=== PATIENT | male | born 1930 | race Two or more races ===

== ENCOUNTER 2017-01-18 08:54 | Emergency (ER) | payer MEDICARE, OTHER ==
[2017-01-18] VITALS (7 sets, daily range): BP systolic 105–117; BP diastolic 47–71
[~2017-01-18] VITALS: Ht 162.6 cm; Wt 69.4 kg
[~2017-01-18 08:54] MED LIST: ATORVASTATIN CA10 MG ORAL; CEPHALEXIN500 MG PO; DONEPEZIL HCL5 M2 ORAL; FLUTICASONE PRO16 G1 NASAL; FUROSEMIDE20 M1 ORAL; KLOR-CON 1010 MEQ ORAL; LEVOFLOXACIN250 MG ORAL; LORATADINE10 M1 ORAL; LOSARTAN POTAS100 MG ORAL; NITROSTAT0.4 M1 SL; OMEPRAZOLE20 M3 ORAL; PRADAXA150 MG ORAL; RAPAFLO8 MG ORAL; TRAMADOL HCL50 MG ORAL; ULORIC40 MG ORAL; UNOBMED; ZETIA10 MG ORAL
[2017-01-18] MEDS ORDERED: CARVEDILOL12.5 MG ORAL (09:09)
[2017-01-18] MEDS ORDERED: LEXAPRO10 MG ORAL (09:09)
[2017-01-18] MEDS ORDERED: VENTOLIN HFA18 GM INH (09:09)
[2017-01-18] MEDS ORDERED: MECLIZINE HCL25 MG ORAL (09:11)
[2017-01-18] MEDS ORDERED: FUROSEMIDE20 M1 ORAL (09:11)
[2017-01-18] MEDS ORDERED: PRADAXA75 MG ORAL (09:11)
[2017-01-18] MEDS ORDERED: TAMSULOSIN HCL0.4 MG ORAL (09:11)
[2017-01-18] MEDS ORDERED: Albuterol ud Inhalation HHN ONE (09:30)
[2017-01-18] MEDS ORDERED: Ipratropium 0.02% Inh Soln 2.5ml UD HHN ONE (09:30)
[2017-01-18 10:21] LABS: EOSINOPHILS % (AUTO) 2.5 % (0.0-3.0); LYMPHOCYTES % (AUTO) 12.3 % (20.0-45.0); MEAN CORPUSCULAR HEMOGLOBIN 31.7 PG (27.0-31.0); MEAN CORPUSCULAR VOLUME 99 FL (80-99); MEAN PLATELET VOLUME 6.8 FL (6.5-10.1); MONOCYTES % (AUTO) 8.3 % (1.0-10.0); NEUTROPHILS % (AUTO) 75.9 % (45.0-75.0); PLATELET COUNT 165 K/UL (150-450); RED BLOOD COUNT 3.51 M/UL (4.70-6.10); RED CELL DISTRIBUTION WIDTH 12.7 % (11.6-14.8)
[2017-01-18 10:25] LABS: APPEARANCE,URINE CLEAR; KETONES,URINE NEGATIVE (NEGATIVE); LEUKOCYTE ESTERASE ,URINE 2+ (NEGATIVE); NITRITE,URINE NEGATIVE (NEGATIVE); PH,URINE 5 (4.5-8.0); PROTEIN,URINE 1+ (NEGATIVE); UROBILINOGEN,URINE NORMAL MG/DL (0.0-1.0)
[2017-01-18 10:42] LABS: ALANINE AMINOTRANSFERASE 14 U/L (3-41); ALBUMIN/GLOBULIN RATIO 0.9 (1.0-2.7); ANION GAP 16 (5-15); ASPARTATE AMINO TRANSFERASE 18 U/L (5-40); CALCIUM 8.7 mg/dL (8.6-10.2); CARBON DIOXIDE 22 mEQ/L (20-30); CHLORIDE 98 mEQ/L (98-107); CREATININE 2.1 mg/dL (0.7-1.2); HEMOLYSIS 14; POTASSIUM 4.3 mEQ/L (3.4-4.9); SODIUM 136 mEQ/L (135-145); TOTAL PROTEIN 7.2 g/dL (6.6-8.7)
[2017-01-18 10:46] LABS: INR 1.7 (0.9-1.1); PROTHROMBIN TIME 17.4 SEC (9.30-11.50)
[2017-01-18 10:53] LABS: BACTERIA,URINE FEW /HPF; SQUAMOUS EPITHELIAL CELL,UR MODERATE /LPF (NONE/OCC)
[2017-01-18 11:02] LABS: TROPONIN I < 0.30 ng/mL (<=0.30)
[2017-01-18 11:14] LABS: CKMB < 1.5 ng/mL (< 6.7)
[2017-01-18] MEDS ORDERED: cefTRIAXone 1 GM in NS 55 ML IV ONE (11:30)
[2017-01-18] MEDS ORDERED: Erythromycin Opth Ointment 3.5gm BOTH EYES ONE (11:30)
[2017-01-18] MEDS ORDERED: Azithromycin 500 MG in NS 275 ML IV ONE (11:30)
[2017-01-18] MEDS ORDERED: Azithromycin Inj IV ONE (12:11)
--- NOTE | 2017-01-18 13:01 | Emergency Room Report ---
History of Present Illness General Chief Complaint: Allergic Reaction Source: Family Member, Medical Record Present Illness HPI 86-year-old male brought to ED for evaluation. Daughter at bedside states that patient has been having cough and cold symptoms since yesterday. Congestion. Short of breath. Also complaining of chest pain with cough. Cough is productive with greenish sputum. Pain is sharp. 7/10. Midsternal. Worse with coughing. Nonradiating. Patient also complaining of redness and itchiness to both eyes. Notes watery discharge. Denies photophobia or blurry vision. Denies fevers or chills. No aggravating relieving factors. Denies any other associated symptom Allergies: Coded Allergies: No Known Allergies (Unverified , 09/27/15) Patient History Past Medical History: HTN, CVA/TIA Past Surgical History: pacemaker Pertinent Family History: none Social History: Denies: alcohol use, drug use, smoking Immunizations: UTD Reviewed Nursing Documentation: PMH: Agreed, PSxH: Agreed Nursing Documentation-PMH Hx Cardiac Problems: Yes Hx Hypertension: Yes Hx Pacemaker: Yes Hx Asthma: No Hx COPD: No Hx Diabetes: No Hx Cancer: No Hx Gastrointestinal Problems: No Hx Dialysis: No Hx Neurological Problems: No Hx Cerebrovascular Accident: Yes - AUG 2012 Hx Seizures: No Review of Systems All Other Systems: negative except mentioned in HPI Physical Exam Vital Signs Date Time Temp Pulse Resp B/P Pulse Ox O2 Delivery O2 Flow Rate FiO2 01/18/17 09:00 98.1 64 16 105/68 96 Room Air 01/18/17 10:30 21 Sp02 EP Interpretation: reviewed, normal General Appearance: no apparent distress, alert, GCS 15, non-toxic Head: normocephalic, atraumatic Eyes: bilateral eye EOMI, bilateral eye PERRL, bilateral eye Scleral Injection , bilateral eye normal inspection, bilateral eye visual acuity ENT: hearing grossly normal, normal pharynx, no angioedema, normal voice Neck: full range of motion, supple/symm/no masses Respiratory: crackles, speaking full sentences Cardiovascular #1: regular rate, rhythm, no edema Cardiovascular #2: 2+ carotid (R), 2+ carotid (L), 2+ radial (R), 2+ radial (L) , 2+ dorsalis pedis (R), 2+ dorsalis pedis (L) Gastrointestinal: normal bowel sounds, non tender, soft, non-distended, no guarding, no rebound Rectal: deferred Genitourinary: normal inspection, no CVA tenderness Musculoskeletal: back normal, gait/station normal, normal range of motion, non- tender Neurologic: alert, oriented x3, responsive, motor strength/tone normal, sensory intact, speech normal Psychiatric: judgement/insight normal, memory normal, mood/affect normal, no suicidal/homicidal ideation Reflexes: 3+ bicep (R), 3+ bicep (L), 3+ tricep (R), 3+ tricep (L), 3+ knee (R) , 3+ knee (L) Skin: normal color, no rash, warm/dry, well hydrated Lymphatic: no adenopathy Medical Decision Making Diagnostic Impression: Primary Impression: Pneumonia Qualified Codes: J18.9 - Pneumonia, unspecified organism Additional Impressions: ARF (acute renal failure) Qualified Codes: N17.9 - Acute kidney failure, unspecified CHF exacerbation Qualified Codes: I50.9 - Heart failure, unspecified ER Course Hospital Course 86-year-old M presenting to ED with respiratory distress, cough and crackles Differential diagnoses include: Pneumonia, CHF exacerbation, pneumothorax, fluid overload Clinical course Patient placed on stretcher. On surveillance monitor. After initial history and physical, I ordered nebulizer treatments. I ordered labs, IV fluids, EKG, chest x-ray, blood cultures, UA. Labs -no leukocytosis, hemoglobin/hematocrit stable, BUN/Cr 50/2.1, lactate okay , troponins negative, BNP elevated CXR - R lower lobe infiltrate EKG - paced rhythm, no acute ischemic changes abx given. Because of insurance patient will be transferred I feel this is a highly complex case requiring extensive working including EKG/ Rhythm strip, Xray/CT/US, Blood/urine lab work, repeat exams while in ED, and administration of strong opiates/narcotics for pain control, admission to hospital or close patient follow up. Diagnosis - pneumonia, ARF, CHF exacerbation Transferred in serious condition Labs Test 01/18/17 09:55 White Blood Count 7.0 K/UL (4.8-10.8) Red Blood Count 3.51 M/UL (4.70-6.10) Hemoglobin 11.1 G/DL (14.2-18.0) Hematocrit 34.7 % (42.0-52.0) Mean Corpuscular Volume 99 FL (80-99) Mean Corpuscular Hemoglobin 31.7 PG (27.0-31.0) Mean Corpuscular Hemoglobin Concent 32.0 G/DL (32.0-36.0) Red Cell Distribution Width 12.7 % (11.6-14.8) Platelet Count 165 K/UL (150-450) Mean Platelet Volume 6.8 FL (6.5-10.1) Neutrophils (%) (Auto) 75.9 % (45.0-75.0) Lymphocytes (%) (Auto) 12.3 % (20.0-45.0) Monocytes (%) (Auto) 8.3 % (1.0-10.0) Eosinophils (%) (Auto) 2.5 % (0.0-3.0) Basophils (%) (Auto) 1.0 % (0.0-2.0) Prothrombin Time 17.4 SEC (9.30-11.50) Prothromb Time International Ratio 1.7 (0.9-1.1) Activated Partial Thromboplast Time 51 SEC (23-33) Urine Color Yellow Urine Appearance Clear Urine pH 5 (4.5-8.0) Urine Specific [place] 1.015 (1.005-1.035) Urine Protein 1+ (NEGATIVE) Urine Glucose (UA) Negative (NEGATIVE) Urine Ketones Negative (NEGATIVE) Urine Occult Blood 2+ (NEGATIVE) Urine Nitrite Negative (NEGATIVE) Urine Bilirubin Negative (NEGATIVE) Urine Urobilinogen Normal MG/DL (0.0-1.0) Urine Leukocyte Esterase 2+ (NEGATIVE) Urine RBC 2-4 /HPF (0 - 0) Urine WBC 5-10 /HPF (0 - 0) Urine Squamous Epithelial Cells Moderate /LPF (NONE/OCC) Urine Bacteria Few /HPF (NONE) Sodium Level 136 mEQ/L (135-145) Potassium Level 4.3 mEQ/L (3.4-4.9) Chloride Level 98 mEQ/L (98-107) Carbon Dioxide Level 22 mEQ/L (20-30) Anion Gap 16 (5-15) Blood Urea Nitrogen 50 mg/dL (7-23) Creatinine 2.1 mg/dL (0.7-1.2) Estimat Glomerular Filtration Rate mL/min (>60) Glucose Level 166 mg/dL (74-106) Lactic Acid Level 1.40 mmol/L (0.66-2.22) Calcium Level 8.7 mg/dL (8.6-10.2) Total Bilirubin 0.6 mg/dL (0.0-1.2) Aspartate Amino Transf (AST/SGOT) 18 U/L (5-40) Alanine Aminotransferase (ALT/SGPT) 14 U/L (3-41) Alkaline Phosphatase 99 U/L (40-129) Total Creatine Kinase 55 U/L (38-174) Creatine Kinase MB < 1.5 ng/mL (< 6.7) Creatine Kinase MB Relative Index Troponin I < 0.30 ng/mL (<=0.30) Pro-B-Type Natriuretic Peptide 88505 pg/mL (0-450) Total Protein 7.2 g/dL (6.6-8.7) Albumin 3.5 g/dL (3.5-5.2) Globulin 3.7 g/dL Albumin/Globulin Ratio 0.9 (1.0-2.7) EKG Diagnostic Results Rate: normal Rhythm: other - paced ST Segments: no acute changes ASA given to the pt in ED: No Rhythm Strip Diag. Results EP Interpretation: yes Rhythm: no PVC's, no ectopy Chest X-Ray Diagnostic Results EP Interpretation: No Findings: no pneumothorax, no acute cardiopulmonary disease, other - RLL infiltrate. pacemaker Number of Views: 1 Last Vital Signs Date Time Temp Pulse Resp B/P Pulse Ox O2 Delivery O2 Flow Rate FiO2 01/18/17 10:41 68 20 100 Room Air 21 01/18/17 09:15 98.1 105/68 Status: improved Disposition: XFER SHT-TRM HOSP Condition: Serious Referrals: NOT CHOSEN FRANNIE/,REFERRING (PCP) LINO ZEPEDA M.D. Jan 18, 2017 13:01
--- NOTE | 2017-01-18 14:38 | Diagnostic Imaging Report ---
Indication: Dyspnea Comparison: 11/03/15 A single view chest radiograph was obtained. Findings: Some prominence of pulmonary vascularity noted but there is no definite CHF. Heart is also enlarged. Pacemaker and generalized osteopenia are noted. There is a question of developing infiltrate versus atelectasis at the right lung base. Impression: Question of developing infiltrate in the right lung. Followup recommended.
[2017-01-18] MEDS ORDERED: AMOXICILLIN500 MG ORAL (14:41)
== END 2017-01-18 19:22 | disposition short-term general hospital (02) ==
LOC: EMR 09:22
DX: J18.9 Pneumonia, unspecified organism (principal); N17.9 Acute kidney failure, unspecified; I50.9 Heart failure, unspecified; I10 Essential (primary) hypertension; Z95.0 Presence of cardiac pacemaker; Z86.73 Personal history of transient ischemic attack (TIA), and cerebral infarction without residual deficits
CPT/HCPCS: 36415; 71010; 80053; 81003; 82550; 82553; 83605; 83880; 84484; 85025; 85610; 85730; 87040; 93005; 94640; 94664; 96374; 96375; 99285; J0456; J0696; J7040; J7050

== ENCOUNTER 2018-01-25 13:56 | Inpatient (IN) | payer MEDICARE, OTHER ==
[~2018-01-25] VITALS: Ht 165.1 cm; Wt 54.4 kg
[~2018-01-25 13:56] MED LIST changes: +AMOXICILLIN500 MG ORAL; +CARVEDILOL12.5 MG ORAL; +LEXAPRO10 MG ORAL; +MECLIZINE HCL25 MG ORAL; +PRADAXA75 MG ORAL; +TAMSULOSIN HCL0.4 MG ORAL; +VENTOLIN HFA18 GM INH
[2018-01-25] MEDS ORDERED: FUROSEMIDE20 M1 ORAL (13:59)
[2018-01-25] MEDS ORDERED: MECLIZINE HCL12.5 MG ORAL (13:59)
[2018-01-25 14:05] VITALS: BP 138/61
--- NOTE | 2018-01-25 14:27 | Emergency Room Report ---
History of Present Illness General Chief Complaint: Generalized Weakness Source: Patient, EMS Present Illness HPI Patient presents after syncopal episode. When paramedics arrived he was sitting. He was pale at that time. Vital signs apparently were stable. The patient's post pacemaker placement. The patient complains of headache and dysuria. He denies chest pain, palpitations, cough, shortness of breath, nausea , vomiting, diarrhea. He denies any head trauma or joint pain. Headache rated at 4/10, constant, occipital, not radiating. He is hard of hearing chronically. Has poor vision which is unchanged - post cataract surgery. He had a stroke in 2011, but has no residual weakness. Allegedly had "heart attack" in past. 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 H/O HTN. On Flomax. Allergies: Coded Allergies: No Known Allergies (Unverified , 09/27/15) Patient History Past Medical History: see triage record Past Surgical History: pacemaker, other - cataract surgery Social History: Denies: smoking, alcohol use Social History Narrative from home - - [facility] Reviewed Nursing Documentation: PMH: Agreed; PSxH: Agreed Nursing Documentation-PMH Past Medical History: No History, Except For Hx Cardiac Problems: Yes Hx Hypertension: Yes Hx Pacemaker: Yes Hx Asthma: No Hx COPD: No Hx Diabetes: No Hx Cancer: No Hx Gastrointestinal Problems: No Hx Dialysis: No Hx Neurological Problems: No Hx Cerebrovascular Accident: Yes - AUG 2012 Hx Seizures: No Review of Systems All Other Systems: negative except mentioned in HPI Physical Exam Vital Signs Date Time Temp Pulse Resp B/P (MAP) Pulse Ox O2 Delivery O2 Flow Rate FiO2 01/25/18 13:56 97.1 64 20 122/66 98 Room Air 97.2 Sp02 EP Interpretation: reviewed, normal General Appearance: well appearing, no apparent distress, GCS 15 Head: normocephalic, atraumatic Eyes: bilateral eye normal inspection, bilateral eye PERRL, bilateral eye EOMI , bilateral eye other - Pterygium ENT: moist mucus membranes Neck: supple Respiratory: lungs clear, normal breath sounds Cardiovascular #1: regular rate, rhythm Cardiovascular #2: 2+ radial (R) Gastrointestinal: normal inspection, normal bowel sounds, non tender, no mass, non-distended Rectal: heme negative stool Musculoskeletal: back normal, normal range of motion, no calf tenderness Neurologic: alert, motor strength/tone normal, DTRs symmetric, sensory intact, speech normal, oriented - X2 Psychiatric: mood/affect normal Skin: warm/dry, pallor Medical Decision Making Diagnostic Impression: Primary Impression: Syncope Qualified Codes: R55 - Syncope and collapse Additional Impressions: Renal insufficiency UTI (urinary tract infection) Qualified Codes: N30.00 - Acute cystitis without hematuria ER Course Patient presents post syncopal episode. Vital signs are stable for paramedics. Differential includes acute myocardial infarction, arrhythmia, dehydration, GI bleed, electrolyte abnormality amongst others. Evaluation will be with EKG, chest x-ray, CT of the head and labs including urinalysis and lactate. He'll be treated with IV hydration at the moment. EKG no acute injury. Chest x-ray reveals pacemaker on the left-hand side. CT shows a large old right frontoparietal infarct without bleed or mass effect. Labs significant for negative troponin, renal insufficiency, UTI, mild anemia Rocephin given. Patient needs continued evaluation and cardiac monitoring for syncope as well as work up for renal failure. Continued treatment of UTI. Admit telemetry Dr. Freitas (for Dr. Reyna). Laboratory Tests Test 01/25/18 14:23 01/25/18 15:14 01/25/18 15:19 White Blood Count 6.8 K/UL (4.8-10.8) Red Blood Count 3.45 M/UL (4.70-6.10) L Hemoglobin 10.8 G/DL (14.2-18.0) L Hematocrit 34.2 % (42.0-52.0) L Mean Corpuscular Volume 99 FL (80-99) Mean Corpuscular Hemoglobin 31.2 PG (27.0-31.0) H Mean Corpuscular Hemoglobin Concent 31.5 G/DL (32.0-36.0) L Red Cell Distribution Width 14.3 % (11.6-14.8) Platelet Count 175 K/UL (150-450) Mean Platelet Volume 6.1 FL (6.5-10.1) L Neutrophils (%) (Auto) 75.8 % (45.0-75.0) H Lymphocytes (%) (Auto) 14.1 % (20.0-45.0) L Monocytes (%) (Auto) 6.7 % (1.0-10.0) Eosinophils (%) (Auto) 2.6 % (0.0-3.0) Basophils (%) (Auto) 0.9 % (0.0-2.0) Sodium Level 138 MMOL/L (136-145) Potassium Level 5.1 MMOL/L (3.5-5.1) Chloride Level 105 MMOL/L (98-107) Carbon Dioxide Level 27 MMOL/L (21-32) Anion Gap 6 mmol/L (5-15) Blood Urea Nitrogen 47 mg/dL (7-18) H Creatinine 1.9 MG/DL (0.55-1.30) H Estimate Glomerular Filtration Rate mL/min (>60) Glucose Level 84 MG/DL (74-106) Lactic Acid Level 1.00 mmol/L (0.66-2.22) Calcium Level 8.2 MG/DL (8.5-10.1) L Total Bilirubin 0.5 MG/DL (0.2-1.0) Aspartate Amino Transferase (AST) 38 U/L (15-37) H Alanine Aminotransferase (ALT) 30 U/L (12-78) Alkaline Phosphatase 114 U/L (46-116) Total Creatine Kinase 62 U/L (26-308) Creatine Kinase MB 0.5 NG/ML (0.0-3.6) Creatine Kinase MB Relative Index 0.8 Troponin I 0.019 ng/mL (0.000-0.056) Pro-B-Type Natriuretic Peptide 41884 pg/mL (0-125) H Total Protein 7.3 G/DL (6.4-8.2) Albumin 3.3 G/DL (3.4-5.0) L Globulin 4.0 g/dL Albumin/Globulin Ratio 0.8 (1.0-2.7) L Prothrombin Time 15.0 SEC (9.30-11.50) H Prothrombin Time INR 1.4 (0.9-1.1) H PTT 43 SEC (23-33) H Urine Color Pale yellow Urine Appearance Slightly cloudy Urine pH 5 (4.5-8.0) Urine Specific [place] 1.010 (1.005-1.035) Urine Protein Negative (NEGATIVE) Urine Glucose (UA) Negative (NEGATIVE) Urine Ketones Negative (NEGATIVE) Urine Occult Blood 3+ (NEGATIVE) H Urine Nitrite Positive (NEGATIVE) H Urine Bilirubin Negative (NEGATIVE) Urine Urobilinogen Normal MG/DL (0.0-1.0) Urine Leukocyte Esterase 2+ (NEGATIVE) H Urine RBC 0-2 /HPF (0 - 0) H Urine WBC 10-15 /HPF (0 - 0) H Urine Squamous Epithelial Cells Few /LPF (NONE/OCC) Urine Bacteria Many /HPF (NONE) H EKG Diagnostic Results Rate: normal Rhythm: other - paced and sinus ST Segments: other - ST elevation less than STEMI Rhythm Strip Diag. Results EP Interpretation: yes Rhythm: no PVC's, no ectopy, other - pacer spiked Chest X-Ray Diagnostic Results Chest X-Ray Diagnostic Results : Chest X-Ray Ordered: Yes # of Views/Limited/Complete: 1 View Indication: Other EP Interpretation: Yes Interpretation: no consolidation, no effusion, no pneumothorax, other - pacer L Impression: Other Electronically Signed by: Electronically signed by Yon Hernandez MD CT/MRI/US Diagnostic Results CT/MRI/US Diagnostic Results : Imaging Test Ordered: head Impression old R frontoparietal infarct, no bleed Last Vital Signs Date Time Temp Pulse Resp B/P (MAP) Pulse Ox O2 Delivery O2 Flow Rate FiO2 01/26/18 00:00 117/60 01/26/18 00:00 60 01/26/18 00:00 97.5 20 99 Room Air 97.5 Status: improved Disposition: ADMITTED INPATIENT Condition: Serious Yon Hernandez M.D. Jan 25, 2018 14:27
[2018-01-25 14:43] LABS: BASOPHILS % (AUTO) 0.9 % (0.0-2.0); EOSINOPHILS % (AUTO) 2.6 % (0.0-3.0); HEMATOCRIT 34.2 % (42.0-52.0); HEMOGLOBIN 10.8 G/DL (14.2-18.0); LYMPHOCYTES % (AUTO) 14.1 % (20.0-45.0); MEAN CORPUSCULAR VOLUME 99 FL (80-99); MONOCYTES % (AUTO) 6.7 % (1.0-10.0); NEUTROPHILS % (AUTO) 75.8 % (45.0-75.0); PLATELET COUNT 175 K/UL (150-450); RED BLOOD COUNT 3.45 M/UL (4.70-6.10); RED CELL DISTRIBUTION WIDTH 14.3 % (11.6-14.8); WHITE BLOOD COUNT 6.8 K/UL (4.8-10.8)
--- NOTE | 2018-01-25 14:51 | Diagnostic Imaging Report ---
Indication: Syncope Technique: XRAY Chest 1v Comparison: 01/18/2017 Findings: Stable cardiomegaly. Pacemaker unchanged in position. There is mild central pulmonary vascular congestion. There is no focal airspace consolidation. No pleural effusion or pneumothorax. No acute osseous abnormality seen. IMPRESSION: Cardiomegaly with mild central pulmonary vascular congestion. No focal airspace consolidation.
[2018-01-25 14:57] LABS: ANION GAP 6 mmol/L (5-15); BLOOD UREA NITROGEN 47 mg/dL (7-18); CALCIUM 8.2 MG/DL (8.5-10.1); CARBON DIOXIDE 27 MMOL/L (21-32); CHLORIDE 105 MMOL/L (98-107); CREATININE 1.9 MG/DL (0.55-1.30); POTASSIUM 5.1 MMOL/L (3.5-5.1); SODIUM 138 MMOL/L (136-145)
--- NOTE | 2018-01-25 15:01 | Diagnostic Imaging Report ---
Indication: Syncope Technique: Continuous helical CT scanning of the head was performed utilizing automated exposure control without intravenous contrast material. Axial and coronal reconstructions were obtained. Comparison: None CT dose: Total DLP 1413 mGycm; CTDI vol 70.5 mGy Findings: There is no acute intracranial hemorrhage, mass effect, midline shift or cortical edema. There is encephalomalacia the right frontal-parietal lobe likely representing area of chronic infarct. There are bilateral basal ganglia calcifications. The ventricles, cisterns and sulci are prominent consistent with atrophy. Periventricular hypoattenuation is seen, a nonspecific finding. Atherosclerotic vascular opacifications are noted. Mastoid air cells are clear. There is mild mucosal thickening in some ethmoid air cells. There is no depressed calvarial fracture. No focal lesion of the scalp is appreciated. IMPRESSION: No evidence of acute intracranial hemorrhage, mass effect or cortical edema. Chronic appearing infarct in the right frontal- parietal lobe. MRI may be obtained for more sensitive evaluation as clinically indicated. Atrophy and nonspecific periventricular hypoattenuation suggestive of chronic ischemic microvascular changes. The CT scanner at [facility] is accredited by the [employer] and the scans are performed using protocols designed to limit radiation exposure to as low as reasonably achievable to attain images of sufficient resolution adequate for diagnostic evaluation.
[2018-01-25 15:10] LABS: ALANINE AMINOTRANSFERASE 30 U/L (12-78); ALBUMIN 3.3 G/DL (3.4-5.0); ALBUMIN/GLOBULIN RATIO 0.8 (1.0-2.7); ALKALINE PHOSPHATASE 114 U/L (46-116); ASPARTATE AMINO TRANSFERASE 38 U/L (15-37); BILIRUBIN,TOTAL 0.5 MG/DL (0.2-1.0); CKMB 0.5 NG/ML (0.0-3.6); CREATINE KINASE 62 U/L (26-308)
[2018-01-25 15:31] LABS: APPEARANCE,URINE SLIGHTLY CLOUDY; BILIRUBIN, URINE NEGATIVE (NEGATIVE); COLOR,URINE PALE YELLOW; GLUCOSE, URINE (UA) NEGATIVE (NEGATIVE); KETONES,URINE NEGATIVE (NEGATIVE); LEUKOCYTE ESTERASE ,URINE 2+ (NEGATIVE); NITRITE,URINE POSITIVE (NEGATIVE); PH,URINE 5 (4.5-8.0); PROTEIN,URINE NEGATIVE (NEGATIVE); UROBILINOGEN,URINE NORMAL MG/DL (0.0-1.0)
[2018-01-25 15:50] LABS: INR 1.4 (0.9-1.1)
[2018-01-25 16:02] VITALS: BP 130/73
[2018-01-25] MEDS ORDERED: cefTRIAXone 1 GM in NS 55 ML IVPB ONE (16:15)
[2018-01-25 17:17] VITALS: BP 143/70
--- NOTE | 2018-01-25 18:52 | Cardiology Progress Note ---
Assessment/Plan Assessment/Plan The patient is seen and examined, full consult note is dictated. Objective Last 24 Hour Vital Signs Date Time Temp Pulse Resp B/P (MAP) Pulse Ox O2 Delivery O2 Flow Rate FiO2 01/25/18 17:17 97.8 64 18 143/70 100 Room Air 97.8 01/25/18 16:02 97.8 64 17 130/73 99 Room Air 97.8 01/25/18 14:05 97.8 64 17 138/61 99 Room Air 97.8 01/25/18 13:56 97.1 64 20 122/66 98 Room Air 97.2 Laboratory Tests Test 01/25/18 14:23 01/25/18 15:14 01/25/18 15:19 White Blood Count 6.8 K/UL (4.8-10.8) Red Blood Count 3.45 M/UL (4.70-6.10) L Hemoglobin 10.8 G/DL (14.2-18.0) L Hematocrit 34.2 % (42.0-52.0) L Mean Corpuscular Volume 99 FL (80-99) Mean Corpuscular Hemoglobin 31.2 PG (27.0-31.0) H Mean Corpuscular Hemoglobin Concent 31.5 G/DL (32.0-36.0) L Red Cell Distribution Width 14.3 % (11.6-14.8) Platelet Count 175 K/UL (150-450) Mean Platelet Volume 6.1 FL (6.5-10.1) L Neutrophils (%) (Auto) 75.8 % (45.0-75.0) H Lymphocytes (%) (Auto) 14.1 % (20.0-45.0) L Monocytes (%) (Auto) 6.7 % (1.0-10.0) Eosinophils (%) (Auto) 2.6 % (0.0-3.0) Basophils (%) (Auto) 0.9 % (0.0-2.0) Sodium Level 138 MMOL/L (136-145) Potassium Level 5.1 MMOL/L (3.5-5.1) Chloride Level 105 MMOL/L (98-107) Carbon Dioxide Level 27 MMOL/L (21-32) Anion Gap 6 mmol/L (5-15) Blood Urea Nitrogen 47 mg/dL (7-18) H Creatinine 1.9 MG/DL (0.55-1.30) H Estimat Glomerular Filtration Rate mL/min (>60) Glucose Level 84 MG/DL (74-106) Lactic Acid Level 1.00 mmol/L (0.66-2.22) Calcium Level 8.2 MG/DL (8.5-10.1) L Total Bilirubin 0.5 MG/DL (0.2-1.0) Aspartate Amino Transf (AST/SGOT) 38 U/L (15-37) H Alanine Aminotransferase (ALT/SGPT) 30 U/L (12-78) Alkaline Phosphatase 114 U/L (46-116) Total Creatine Kinase 62 U/L (26-308) Creatine Kinase MB 0.5 NG/ML (0.0-3.6) Creatine Kinase MB Relative Index 0.8 Troponin I 0.019 ng/mL (0.000-0.056) Pro-B-Type Natriuretic Peptide 88439 pg/mL (0-125) H Total Protein 7.3 G/DL (6.4-8.2) Albumin 3.3 G/DL (3.4-5.0) L Globulin 4.0 g/dL Albumin/Globulin Ratio 0.8 (1.0-2.7) L Prothrombin Time 15.0 SEC (9.30-11.50) H Prothromb Time International Ratio 1.4 (0.9-1.1) H Activated Partial Thromboplast Time 43 SEC (23-33) H Urine Color Pale yellow Urine Appearance Slightly cloudy Urine pH 5 (4.5-8.0) Urine Specific [place] 1.010 (1.005-1.035) Urine Protein Negative (NEGATIVE) Urine Glucose (UA) Negative (NEGATIVE) Urine Ketones Negative (NEGATIVE) Urine Occult Blood 3+ (NEGATIVE) H Urine Nitrite Positive (NEGATIVE) H Urine Bilirubin Negative (NEGATIVE) Urine Urobilinogen Normal MG/DL (0.0-1.0) Urine Leukocyte Esterase 2+ (NEGATIVE) H Urine RBC 0-2 /HPF (0 - 0) H Urine WBC 10-15 /HPF (0 - 0) H Urine Squamous Epithelial Cells Few /LPF (NONE/OCC) Urine Bacteria Many /HPF (NONE) H MALINDA FREY Jan 25, 2018 18:52
[2018-01-25 20:00] VITALS: BP 150/77
[2018-01-25] MEDS ORDERED: Heparin 5000 units/ml inj SUBQ SCH (21:00)
[2018-01-25] MEDS: HydrALAZINE 10mg Tab ORAL SCH (21:29)
[2018-01-25] MEDS: Imdur 30mg tab ORAL SCH (21:30)
[2018-01-25] MEDS: Tamsulosin 0.4mg cap ORAL SCH (21:47)
[2018-01-25] MEDS: Carvedilol 12.5mg tab ORAL SCH (21:48)
[2018-01-26] VITALS: BP 117/60
--- NOTE | 2018-01-26 00:15 | Consultation ---
DATE OF CONSULTATION: 01/25/2018 CARDIOLOGY CONSULTATION CONSULTING PHYSICIAN: Tanner Sotelo M.D. REFERRING PHYSICIAN: Angela Freitas M.D. REASON FOR CONSULTATION: Management of shortness of breath. HISTORY OF PRESENT ILLNESS: The patient is a very pleasant 87-year-old gentleman who was brought in for evaluation of shortness of breath. According to the patient's daughter, the patient has been having cough and cold symptoms for just about a day. The patient states that he has become progressively short of breath as well as having chest congestion. He states that he has chest pain with cough, which are productive. He states that he has some greenish sputum. Chest pain is described as sharp, 7/10, midsternal, worse with coughing, nonradiating. The patient at the time of arrival to the hospital had a blood pressure 105/68 mmHg and pulse rate of 64. A 12-lead electrocardiogram was significant for atrial fibrillation with ventricular paced rhythm at 100% with associated premature ventricular complexes. Imaging, chest x-ray showed cardiomegaly with central pulmonary vascular congestion and presence of a pacemaker, however, there was no significant for pulmonary edema. Laboratory findings revealed normal troponin I level, however, proBNP was . The patient was admitted to telemetry under the service of Dr. Freitas. Cardiology consultation was made at the request of Dr. Freitas for evaluation of shortness of breath as well as atrial fibrillation. PAST MEDICAL HISTORY: 1. History of cerebrovascular accident. 2. History of the sick sinus syndrome status post Medtronic dual-chamber pacemaker. 3. History of atrial fibrillation. 4. History of coronary artery disease. 5. History of hyperlipidemia. 6. History of gastroesophageal reflux disease. 7. History of hernia. 8. History of hearing loss. 9. History of pulmonary hypertension. 10. History of chronic kidney disease. PAST SURGICAL HISTORY: 1. Medtronic dual-chamber pacemaker implantation. 2. History of hernia repair. MEDICATIONS: The patient's list of medications at home including albuterol one puff inhaler q.6 h., amoxicillin 500 mg three times a day, Lipitor 10 mg p.o. at bedtime, carvedilol 12.5 mg twice daily, Pradaxa 75 mg p.o. twice daily, donepezil 5 mg p.o. daily, Lexapro 10 mg p.o. daily, Zetia 10 mg p.o. daily, Uloric 40 mg p.o. daily, fluticasone 50 mcg b.i.d. p.r.n. nasal congestion, Lasix 20 mg p.o. daily, levofloxacin 250 mg p.o. daily, loratadine 10 mg p.o. daily, losartan 50 mg p.o. daily, meclizine 25 mg p.o. twice daily, Nitrostat 0.4 mg sublingual q.5 minutes x3 p.r.n. chest pain, omeprazole 20 mg p.o. daily, potassium chloride 10 mEq p.o. every Mondays, Rapaflo 8 mg p.o. daily, tamsulosin 0.4 mg at bedtime, and Ultram 50 mg p.o. q.6 h. p.r.n. pain. ALLERGIES: No known drug allergies. SOCIAL HISTORY: He used to smoke tobacco in the past, quit about 45 years ago. He used to drink alcohol as well, quit about 20 years ago. He currently denies any tobacco, alcohol, or illicit drug use. REVIEW OF SYSTEMS: HEENT: Denies any headache, diplopia, or blurred vision. CONSTITUTIONAL: He has some generalized weakness, but denies any fever, chills, or night sweats. CARDIOVASCULAR: Chest pain worse with coughing. There is progressive worsening of shortness of breath for about a day. Denies any PND, orthopnea, leg swelling, palpitations, or syncope. PULMONARY: Complaining of flu-like symptoms including runny nose and sore throat with associated productive cough with greenish sputum as well as shortness of breath. GASTROINTESTINAL: Denies any nausea, vomiting, diarrhea, constipation, abdominal pain, or GI bleed. GENITOURINARY: Denies any hematuria, dysuria, or incontinence. NEUROLOGY: Denies any motor dysfunction, sensory deficit, or altered speech. MUSCULOSKELETAL: The patient was ambulating at home, although limited with no significant problems. PHYSICAL EXAMINATION: GENERAL: The patient is a very pleasant 87-year-old gentleman, who is very coherent, in no apparent respiratory distress. VITAL SIGNS: Blood pressure at time of arrival to the ED was 105/68, respirations 16, pulse of 64, temperature 98.1 degrees Fahrenheit, and O2 saturation 96% on room air. HEENT: Atraumatic and normocephalic. ENT, pupils are equal, round, and reactive to light and accommodation. There is periorbital edema. Conjunctival pallor. NECK: JVP is less than 5 cm. No carotid bruit. Carotid upstrokes 2+ bilaterally. CARDIOVASCULAR: Normal S1 and S2. Regular rate and rhythm. There is 2/6 mid systolic murmur at the left sternal border. PMI is at fourth intercostal space at the midclavicular line. LUNGS: Clear to auscultation bilaterally. ABDOMEN: Soft, nontender, and nondistended. No hepatosplenomegaly. Positive bowel sounds. EXTREMITIES: No evidence of edema, clubbing, or cyanosis. LABORATORY AND DIAGNOSTIC DATA: Sodium is 138, potassium is 5.1, chloride 105, bicarbonate 27, BUN of 47, creatinine 1.9 and glucose 84. Calcium is 8.2. Troponin I was 0.019. ProBNP was 12,654. INR was 1.4. CBC, white count 6.8, hemoglobin 10.8, hematocrit 34.2, and platelet count is 175. A 12-lead electrocardiogram shows atrial fibrillation with ventricular paced rhythm and occasional ventricular premature complexes. Chest x-ray shows cardiomegaly with central pulmonary vascular congestion, no evidence of pulmonary edema. ASSESSMENT AND PLAN: The patient is a very unfortunate 87-year-old gentleman, seen in Cardiology consultation at request of Dr. Freitas. 1. Shortness of breath. This might be secondary to bronchitis; however, the patient may have a heart failure. Review of the records shows the patient had a nuclear stress test in January 2017, which did not reveal any evidence of ischemia. There was mainly a nonreversible defect, particular in the right coronary artery territory and a small defect in the LAD territory. Overall left ventricular ejection fraction was calculated at 36%. The patient's last 2D echocardiography in January 2017 also correlated with the cardiac PET scan revealing depressed left ventricular systolic function with LVEF of about 40% and wall motion abnormalities mainly in the inferior wall and also some decrease in RV systolic function with mild pulmonary hypertension with RVSP of 39 mmHg. Given the results of 2D echocardiography, the patient will benefit from repeat of this study and compare with the those study mentioned above. 2. Dual-chamber pacemaker implantation, Medtronic, implanted in 2017, appears to be functioning normally. We will speak with the patient and find out the last interrogation of the device. 3. Permanent atrial fibrillation, on Pradaxa, which will be continued. 4. History of coronary artery disease. 5. History of cardiomyopathy, the last left ventricular ejection fraction around 40%. There is evidence of myocardial infarction in the right coronary artery territory. First troponin level is negative. We will continue with serial troponin I level in this patient. Given the fact that the patient shows ventricular paced rhythm, a ST segment cannot be assessed. 6. Further therapeutic and diagnostic decision will be based on the results of the serial troponin I level. I would like to thank, Dr. Freitas, for the courtesy of this consultation. Tanner Sotelo M.D. DR: TAE JOB#: [id number] CC:
[2018-01-26 04:00] VITALS: BP 106/55
[2018-01-26] MEDS: HydrALAZINE 10mg Tab ORAL SCH ×4 (06:31→18:00)
[2018-01-26 08:00] VITALS: BP 102/41
[2018-01-26] MEDS: Donepezil 5mg Tab ORAL SCH (08:40)
[2018-01-26] MEDS: Imdur 30mg tab ORAL SCH (08:41)
[2018-01-26] MEDS: Carvedilol 12.5mg tab ORAL SCH ×2 (08:41→20:55)
[2018-01-26 10:10] LABS: BASOPHILS % (AUTO) 0.8 % (0.0-2.0); EOSINOPHILS % (AUTO) 1.3 % (0.0-3.0); HEMATOCRIT 31.1 % (42.0-52.0); LYMPHOCYTES % (AUTO) 14.2 % (20.0-45.0); MEAN CORPUSCULAR VOLUME 99 FL (80-99); MONOCYTES % (AUTO) 8.6 % (1.0-10.0); NEUTROPHILS % (AUTO) 75.1 % (45.0-75.0); PLATELET COUNT 160 K/UL (150-450); RED BLOOD COUNT 3.15 M/UL (4.70-6.10); RED CELL DISTRIBUTION WIDTH 14.3 % (11.6-14.8); WHITE BLOOD COUNT 4.1 K/UL (4.8-10.8)
[2018-01-26 11:02] LABS: ALANINE AMINOTRANSFERASE 30 U/L (12-78); ALBUMIN 2.6 G/DL (3.4-5.0); ALBUMIN/GLOBULIN RATIO 0.7 (1.0-2.7); ALKALINE PHOSPHATASE 102 U/L (46-116); ANION GAP 8 mmol/L (5-15); ASPARTATE AMINO TRANSFERASE 26 U/L (15-37); BILIRUBIN,TOTAL 0.4 MG/DL (0.2-1.0); BLOOD UREA NITROGEN 41 mg/dL (7-18); CALCIUM 7.6 MG/DL (8.5-10.1); CARBON DIOXIDE 24 MMOL/L (21-32); CHLORIDE 108 MMOL/L (98-107); CREATININE 1.8 MG/DL (0.55-1.30); POTASSIUM 4.2 MMOL/L (3.5-5.1); SODIUM 140 MMOL/L (136-145)
[2018-01-26 12:00] VITALS: BP 102/41
[2018-01-26 16:00] VITALS: BP 107/64
--- NOTE | 2018-01-26 16:02 | History & Physical ---
History and Physical History & Physicial Dictated for Int Med-Dr Freitas no. [id number]. THEODORA HAIR Jan 26, 2018 16:02
[2018-01-26 20:00] VITALS: BP 126/59
--- NOTE | 2018-01-26 20:00 | History and Physical Report ---
DATE OF ADMISSION: 01/25/2018 CHIEF COMPLAINT: The patient is an 87-year-old male who presents with chief complaint of "I passed out." HISTORY OF PRESENT ILLNESS: The patient has a history of atrial fibrillation and pacemaker. The patient states he has been falling several times over the last month. The patient states his present illness began yesterday, 01/25/2018. The patient was sitting and then stood up. The patient states the room was spinning after he stood up. The patient passed out. It is unknown how long the patient was out. The patient was transferred to [place] emergency room. The patient admitted for syncopal episode to rule out acute coronary syndrome versus acute cerebrovascular accident. REVIEW OF SYSTEMS: CONSTITUTIONAL: The patient denies weight loss or weight gain. The patient denies fevers or chills. HEENT: The patient denies ear or throat pain. The patient denies headache. CARDIOVASCULAR: The patient denies palpitations or chest pain. CHEST: The patient denies wheezing or shortness of breath. ABDOMINAL: The patient denies nausea, vomiting, diarrhea, or constipation. GENITOURINARY: The patient denies dysuria or increased frequency of urination. NEUROMUSCULAR: The patient complains of vertigo as above. The patient denies seizures or generalized weakness. PAST MEDICAL HISTORY: Significant for, 1. Coronary artery disease, status post myocardial infarction 5 years ago. 2. Cerebrovascular accident. 3. Hypertension. 4. Atrial fibrillation. PAST SURGICAL HISTORY: Significant for pacemaker implantation 5 years ago. CURRENT MEDICATIONS: 1. Albuterol metered dose inhaler 2 puffs p.o. q.i.d. p.r.n. 2. Lipitor 10 mg p.o. at bedtime. 3. Carvedilol 12.5 mg twice daily. 4. Pradaxa 75 mg p.o. twice daily. 5. Aricept 5 mg p.o. daily. 6. Lexapro 10 mg p.o. daily. 7. Zetia 10 mg p.o. daily. 8. Uloric 40 mg p.o. daily. 9. Flonase 2 puffs in each nostril twice daily. 10. Furosemide 20 mg p.o. daily. 11. Claritin 10 mg p.o. daily. 12. Losartan 100 mg one-half tablet p.o. daily. 13. Meclizine 25 mg p.o. twice daily p.r.n. 14. Omeprazole 20 mg p.o. daily. 15. Potassium chloride 10 mEq p.o. p.o. daily. 16. Rapaflo 8 mg p.o. daily. 17. Flomax 0.4 mg p.o. at bedtime. 18. Tramadol 50 mg p.o. q.6 h. p.r.n. ALLERGIES: No known drug allergies. SOCIAL HISTORY: The patient is . The patient admits to previous tobacco use of one pack per day, however, he quit approximately 10 years ago. The patient denies alcohol use. The patient states he quit drinking alcohol approximately 10 years ago. PHYSICAL EXAMINATION: VITAL SIGNS: Temperature 98.2, respirations 19, pulse 61, and blood pressure 102/41. GENERAL: The patient is a well-developed, well-nourished, thin-appearing male, in no apparent distress. HEENT: Eyes, pupils are equally responsive to light and accommodation. Extraocular movements are intact. NECK: Supple without lymphadenopathy. CHEST: Lungs are clear to auscultation bilaterally without wheezes or rales. CARDIOVASCULAR: Regular rhythm and rate. S1 and S2 normal without murmurs, rubs, or gallops. ABDOMEN: Soft, nontender, and nondistended. Positive bowel sounds. No evidence of hepatosplenomegaly, rebound, or guarding noted. EXTREMITIES: Negative for clubbing, cyanosis, or edema. RECTAL/GENITAL: Refused. NEUROLOGIC: Cranial nerves II through XII are grossly intact without focal deficits. Motor strength is 5/5, bilaterally intact. Deep tendon reflexes are 2+ plantar. LABORATORY STUDIES: WBC 6.8, hemoglobin 10.8, hematocrit 34.3, and platelets 175,000. Sodium 138, potassium 5.1, chloride 105, CO2 27, BUN 47, creatinine 1.9, glucose 84. BNP elevated at 12,654. ASSESSMENT: This is an 87-year-old male, 1. Syncopal episode. 2. Atrial fibrillation. 3. Coronary artery disease. 4. Hypertension. 5. Cerebrovascular disease. 6. Pacemaker in situ. 7. Hypercholesterolemia. 8. Alzheimer's dementia. 9. Benign prostatic hypertrophy. TREATMENT: 1. Syncopal episode. A Cardiology consultation has been obtained with Dr. Hart . Cardiology workup is pending. The patient is currently hypotensive. The patient may have had syncopal episode secondary to orthostatic hypotension. 2. Atrial fibrillation. As above, a Cardiology consultation has been obtained with Dr. Hart . 3. Coronary artery disease. Two troponin levels and BNPs will be performed. 4. Hypertension. The patient is currently hypotensive. Hold antihypertensive medication at this time. 5. History of cerebrovascular disease. 6. Pacemaker in situ. 7. Hypercholesteremia. Continue Zetia and atorvastatin as above. 8. Alzheimer's dementia. Continue Aricept as above. 9. Benign prostatic hypertrophy. Continue Rapaflo and Flomax as above. Fermin Brooks M.D. DR: LUCERO JOB#: [id number] CC:
[2018-01-26] MEDS: Tamsulosin 0.4mg cap ORAL SCH (20:54)
--- NOTE | 2018-01-26 21:57 | Cardiology Progress Note ---
Assessment/Plan Assessment/Plan 1. Shortness of breath due to acute systolic and diastolic CHF. LVEF at 35%, last nucleqar stress test showed no ischemia and essentially evidence of myocardial infarction in the right coronary artery territory. 2. Dual-chamber pacemaker implantation, Medtronic, implanted in 2017, appears to be functioning normally. 3. Permanent atrial fibrillation, on Pradaxa, which will be continued. 4. History of coronary artery disease. Subjective Subjective Sinus rhythm at 65. Objective Last 24 Hour Vital Signs Date Time Temp Pulse Resp B/P (MAP) Pulse Ox O2 Delivery O2 Flow Rate FiO2 01/26/18 20:55 61 126/59 01/26/18 18:00 107/64 01/26/18 16:00 65 01/26/18 16:00 97.7 65 20 107/64 98 Room Air 97.7 01/26/18 12:00 102/41 01/26/18 12:00 97.5 63 20 102/41 98 Room Air 97.5 01/26/18 11:40 60 01/26/18 08:41 102/41 01/26/18 08:41 61 102/41 01/26/18 08:00 98.2 61 19 102/41 97 Room Air 98.2 01/26/18 07:43 63 01/26/18 06:31 101/50 01/26/18 04:00 64 01/26/18 04:00 98.2 60 20 106/55 97 Room Air 98.2 01/26/18 00:00 117/60 01/26/18 00:00 60 01/26/18 00:00 97.5 60 20 117/60 99 Room Air 97.5 01/25/18 21:48 61 150/77 Intake and Output 01/25/18 01/26/18 19:00 07:00 Intake Total 0 ml Output Total 600 ml Balance 0 ml -600 ml Intake Oral 0 ml Output Urine Total 600 ml # Voids 2 2D Echo: EF 35%, Global HK, HAMILTON,elevated RAP,Mild AR/MR,Grade II LVDD,RVSP 41 mmHg Laboratory Tests Test 01/26/18 09:25 White Blood Count 4.1 K/UL (4.8-10.8) L Red Blood Count 3.15 M/UL (4.70-6.10) L Hemoglobin 10.0 G/DL (14.2-18.0) L Hematocrit 31.1 % (42.0-52.0) L Mean Corpuscular Volume 99 FL (80-99) Mean Corpuscular Hemoglobin 31.6 PG (27.0-31.0) H Mean Corpuscular Hemoglobin Concent 32.0 G/DL (32.0-36.0) Red Cell Distribution Width 14.3 % (11.6-14.8) Platelet Count 160 K/UL (150-450) Mean Platelet Volume 6.8 FL (6.5-10.1) Neutrophils (%) (Auto) 75.1 % (45.0-75.0) H Lymphocytes (%) (Auto) 14.2 % (20.0-45.0) L Monocytes (%) (Auto) 8.6 % (1.0-10.0) Eosinophils (%) (Auto) 1.3 % (0.0-3.0) Basophils (%) (Auto) 0.8 % (0.0-2.0) Sodium Level 140 MMOL/L (136-145) Potassium Level 4.2 MMOL/L (3.5-5.1) Chloride Level 108 MMOL/L (98-107) H Carbon Dioxide Level 24 MMOL/L (21-32) Anion Gap 8 mmol/L (5-15) Blood Urea Nitrogen 41 mg/dL (7-18) H Creatinine 1.8 MG/DL (0.55-1.30) H Estimat Glomerular Filtration Rate mL/min (>60) Glucose Level 133 MG/DL (74-106) H Calcium Level 7.6 MG/DL (8.5-10.1) L Total Bilirubin 0.4 MG/DL (0.2-1.0) Aspartate Amino Transf (AST/SGOT) 26 U/L (15-37) Alanine Aminotransferase (ALT/SGPT) 30 U/L (12-78) Alkaline Phosphatase 102 U/L (46-116) Total Protein 6.1 G/DL (6.4-8.2) L Albumin 2.6 G/DL (3.4-5.0) L Globulin 3.5 g/dL Albumin/Globulin Ratio 0.7 (1.0-2.7) L Microbiology Date/Time Source Procedure Growth Status 01/25/18 15:19 Urine,Clean Catch Urine Culture - Preliminary Gram Negative Esvin Resulted Objective HEENT: Atraumatic and normocephalic. ENT, pupils are equal, round, and reactive to light and accommodation. There is periorbital edema. Conjunctival pallor. NECK: JVP is less than 5 cm. No carotid bruit. Carotid upstrokes 2+ bilaterally. CARDIOVASCULAR: Normal S1 and S2. Regular rate and rhythm. There is 2/6 mid systolic murmur at the left sternal border. PMI is at fourth intercostal space at the midclavicular line. LUNGS: Clear to auscultation bilaterally. ABDOMEN: Soft, nontender, and nondistended. No hepatosplenomegaly. Positive bowel sounds. EXTREMITIES: No evidence of edema, clubbing, or cyanosis. MALINDA FREY Jan 26, 2018 21:57
[2018-01-27] VITALS: BP 120/55
[2018-01-27] MEDS: HydrALAZINE 10mg Tab ORAL SCH ×5 (00:19→23:54)
[2018-01-27 04:00] VITALS: BP 108/56
[2018-01-27 08:00] VITALS: BP 114/51
[2018-01-27] MEDS: Donepezil 5mg Tab ORAL SCH (08:36)
[2018-01-27] MEDS: Carvedilol 12.5mg tab ORAL SCH ×2 (08:40→21:10)
[2018-01-27] MEDS: Imdur 30mg tab ORAL SCH (08:40)
[2018-01-27] MEDS: Lisinopril 2.5mg tab ORAL SCH (08:41)
[2018-01-27 09:28] LABS: BASOPHILS % (AUTO) 0.5 % (0.0-2.0); EOSINOPHILS % (AUTO) 0.9 % (0.0-3.0); HEMATOCRIT 31.8 % (42.0-52.0); HEMOGLOBIN 10.3 G/DL (14.2-18.0); LYMPHOCYTES % (AUTO) 20.1 % (20.0-45.0); MEAN CORPUSCULAR VOLUME 98 FL (80-99); MONOCYTES % (AUTO) 7.7 % (1.0-10.0); NEUTROPHILS % (AUTO) 70.8 % (45.0-75.0); PLATELET COUNT 155 K/UL (150-450); RED BLOOD COUNT 3.23 M/UL (4.70-6.10); RED CELL DISTRIBUTION WIDTH 14.8 % (11.6-14.8)
[2018-01-27 09:58] LABS: ANION GAP 8 mmol/L (5-15); BLOOD UREA NITROGEN 41 mg/dL (7-18); CALCIUM 7.9 MG/DL (8.5-10.1); CARBON DIOXIDE 26 MMOL/L (21-32); CHLORIDE 106 MMOL/L (98-107); CREATININE 2.1 MG/DL (0.55-1.30); POTASSIUM 4.5 MMOL/L (3.5-5.1); SODIUM 139 MMOL/L (136-145)
[2018-01-27 12:00] VITALS: BP 116/60
[2018-01-27] MEDS ORDERED: Loperamide 2mg cap ORAL PRN (15:30)
[2018-01-27 16:00] VITALS: BP 118/71
[2018-01-27] MEDS ORDERED: Amikacin Rx to dose MISC PRN (19:30)
[2018-01-27 20:00] VITALS: BP 122/58
[2018-01-27] MEDS: Tamsulosin 0.4mg cap ORAL SCH (21:08)
--- NOTE | 2018-01-27 21:30 | Cardiology Progress Note ---
Assessment/Plan Assessment/Plan 1. Shortness of breath due to acute systolic and diastolic CHF. LVEF at 35%, last nuclear stress test showed no ischemia and essentially evidence of myocardial infarction in the right coronary artery territory. 2. Slight elevation of troponin not typical for ACS, most likely due to heart failure. 3. Dual-chamber pacemaker implantation, Medtronic, implanted in 2017, appears to be functioning normally. 4. Permanent atrial fibrillation, continue Pradaxa. 5. History of coronary artery disease. Subjective Subjective Sinus rhythm at 66. Objective Last 24 Hour Vital Signs Date Time Temp Pulse Resp B/P (MAP) Pulse Ox O2 Delivery O2 Flow Rate FiO2 01/27/18 21:10 66 122/68 01/27/18 17:33 118/71 01/27/18 16:00 97.8 69 17 118/71 96 Room Air 97.8 01/27/18 15:31 60 01/27/18 12:47 116/60 01/27/18 12:00 98.2 60 17 116/60 97 Room Air 98.2 01/27/18 11:40 60 01/27/18 08:41 114/51 01/27/18 08:40 114/51 01/27/18 08:40 60 114/51 01/27/18 08:00 99.9 60 19 114/51 99 Room Air 99.9 01/27/18 07:44 60 01/27/18 06:52 108/56 01/27/18 04:00 61 01/27/18 04:00 96.7 60 18 108/56 97 Room Air 96.7 01/27/18 00:19 120/55 01/27/18 00:00 60 01/27/18 00:00 98.8 61 20 120/55 99 Room Air 98.8 Intake and Output 01/26/18 01/27/18 19:00 07:00 Intake Total 720 ml Output Total 400 ml 520 ml Balance 320 ml -520 ml Intake Oral 720 ml Output Urine Total 400 ml 520 ml # Voids 1 1 # Bowel Movements 1 2D Echo: EF 35%, Global HK, HAMILTON,elevated RAP,Mild AR/MR,Grade II LVDD,RVSP 41 mmHg Laboratory Tests Test 01/27/18 08:50 White Blood Count 5.0 K/UL (4.8-10.8) Red Blood Count 3.23 M/UL (4.70-6.10) L Hemoglobin 10.3 G/DL (14.2-18.0) L Hematocrit 31.8 % (42.0-52.0) L Mean Corpuscular Volume 98 FL (80-99) Mean Corpuscular Hemoglobin 31.8 PG (27.0-31.0) H Mean Corpuscular Hemoglobin Concent 32.3 G/DL (32.0-36.0) Red Cell Distribution Width 14.8 % (11.6-14.8) Platelet Count 155 K/UL (150-450) Mean Platelet Volume 7.2 FL (6.5-10.1) Neutrophils (%) (Auto) 70.8 % (45.0-75.0) Lymphocytes (%) (Auto) 20.1 % (20.0-45.0) Monocytes (%) (Auto) 7.7 % (1.0-10.0) Eosinophils (%) (Auto) 0.9 % (0.0-3.0) Basophils (%) (Auto) 0.5 % (0.0-2.0) Sodium Level 139 MMOL/L (136-145) Potassium Level 4.5 MMOL/L (3.5-5.1) Chloride Level 106 MMOL/L (98-107) Carbon Dioxide Level 26 MMOL/L (21-32) Anion Gap 8 mmol/L (5-15) Blood Urea Nitrogen 41 mg/dL (7-18) H Creatinine 2.1 MG/DL (0.55-1.30) H Estimat Glomerular Filtration Rate mL/min (>60) Glucose Level 139 MG/DL (74-106) H Calcium Level 7.9 MG/DL (8.5-10.1) L Troponin I 0.062 ng/mL (0.000-0.056) Pro-B-Type Natriuretic Peptide 43765 pg/mL (0-125) H Microbiology Date/Time Source Procedure Growth Status 01/25/18 15:19 Urine,Clean Catch Urine Culture - Preliminary Klebsiella Pneumoniae Resulted Objective HEENT: Atraumatic and normocephalic. ENT, pupils are equal, round, and reactive to light and accommodation. There is periorbital edema. Conjunctival pallor. NECK: JVP is less than 5 cm. No carotid bruit. Carotid upstrokes 2+ bilaterally. CARDIOVASCULAR: Normal S1 and S2. Regular rate and rhythm. There is 2/6 mid systolic murmur at the left sternal border. PMI is at fourth intercostal space at the midclavicular line. LUNGS: Clear to auscultation bilaterally. ABDOMEN: Soft, nontender, and nondistended. No hepatosplenomegaly. Positive bowel sounds. EXTREMITIES: No evidence of edema, clubbing, or cyanosis. MALINDA FREY Jan 27, 2018 21:30
[2018-01-27] MEDS ORDERED: AMIKACIN IV SCH (22:00)
[2018-01-27] MEDS ORDERED: NS IV SCH (22:00)
[2018-01-28] VITALS: BP 110/53
[2018-01-28 04:00] VITALS: BP 97/54
[2018-01-28] MEDS: HydrALAZINE 10mg Tab ORAL SCH ×3 (06:00→18:30)
[2018-01-28 08:00] VITALS: BP 104/45
--- NOTE | 2018-01-28 08:08 | Cardiology Report ---
APPROVED REPORT EXAM: Two-dimensional and M-mode echocardiogram with Doppler and color Doppler. INDICATION Syncope M-Mode DIMENSIONS IVSd1.4 (0.7-1.1cm)Left Atrium (MM)5.3 (1.6-4.0cm) LVDd6.1 (3.5-5.6cm)Aortic Root3.4 (2.0-3.7cm) PWd1.5 (0.7-1.1cm)Aortic Cusp Exc.1.9 (1.5-2.0cm) LVDs5.6 (2.5-4.0cm) PWs1.6 cm Technically difficult study due to poor acoustical windows. Normal left ventricular chamber size. Global left ventricular hypokinesis with inferoapical and apical dyskinesis. Left ventricular ejection fraction estimated to be 30 %. No evidence of left ventricular hypertrophy. No evidence of pericardial or pleural effusion. Moderate Bi-atrial enlargement by 2D. Focal aortic valve sclerosis with adequate cusp excursion. Normal mitral valve leaflets with normal excursion. Mild mitral annulus and aortic root calcification. Pulmonic valve not well visualized. Normal tricuspid valve structure. IVC is normal in size minimal collapse with respiration indicate increased RA pressure. Probable pacemaker wire present in the right side chambers. A color flow and spectral Doppler study was performed and revealed: Mild aortic regurgitation. Mild mitral regurgitation. Mitral inflow velocities indicates possible pseudo normalization pattern implying significant left ventricular diastolic dysfunction (grade ll) Moderate tricuspid regurgitation. Tricuspid systolic velocities suggests peak right ventricular systolic pressure of 41 mmHg Consistent with mild pulmonary hypertension. Pulmonic regurgitation present.
[2018-01-28] MEDS: Donepezil 5mg Tab ORAL SCH (08:52)
[2018-01-28] MEDS: Imdur 30mg tab ORAL SCH (08:52)
[2018-01-28] MEDS: Carvedilol 12.5mg tab ORAL SCH ×2 (08:53→21:00)
[2018-01-28] MEDS: Lisinopril 2.5mg tab ORAL SCH (08:53)
--- NOTE | 2018-01-28 11:17 | Consultation ---
Consult Note Consult Note ID DIC # [id number] Toni Rios MD Jan 28, 2018 11:17
[2018-01-28 12:00] VITALS: BP 114/57
--- NOTE | 2018-01-28 13:40 | Pulmonology Progress Note ---
Assessment/Plan Problems: (1) Acute respiratory failure (2) Acute end-stage systolic heart failure (3) UTI (urinary tract infection) (4) Infection due to ESBL-producing Klebsiella pneumoniae (5) Severe protein-calorie malnutrition Assessment/Plan diuretics iv abx as per ID f/u cardiology recommendations repeat cxr and BNP in am. stable for med/surg Subjective ROS Limited/Unobtainable: No Constitutional: Reports: no symptoms HEENT: Repors: no symptoms Respiratory: Reports: no symptoms Cardiovascular: Reports: no symptoms Gastrointestinal/Abdominal: Reports: no symptoms Allergies: Coded Allergies: No Known Allergies (Unverified , 09/27/15) Objective Last 24 Hour Vital Signs Date Time Temp Pulse Resp B/P (MAP) Pulse Ox O2 Delivery O2 Flow Rate FiO2 01/28/18 11:15 60 01/28/18 08:53 104/45 01/28/18 08:53 60 104/45 01/28/18 08:52 104/45 01/28/18 08:00 98.1 60 19 104/45 97 Room Air 98.1 01/28/18 07:01 60 01/28/18 06:00 105/51 01/28/18 04:00 60 01/28/18 04:00 100.2 60 17 97/54 94 Room Air 100.2 01/28/18 00:00 65 01/28/18 00:00 98.2 63 17 110/53 96 Room Air 98.2 01/27/18 23:54 110/53 01/27/18 21:10 66 122/68 01/27/18 20:00 97.1 62 18 122/58 98 Room Air 97.1 01/27/18 20:00 60 01/27/18 17:33 118/71 01/27/18 16:00 97.8 69 17 118/71 96 Room Air 97.8 01/27/18 15:31 60 Intake and Output 01/27/18 01/28/18 19:00 07:00 Intake Total 240 ml Output Total 400 ml Balance -160 ml Intake Oral 240 ml Output Urine Total 400 ml # Voids 3 # Bowel Movements 10 General Appearance: cachetic HEENT: normocephalic, anicteric Respiratory/Chest: chest wall non-tender, lungs clear Cardiovascular: normal peripheral pulses, normal rate Abdomen: normal bowel sounds, no organomegaly Extremities: no clubbing Skin: no lesions Neurologic/Psychiatric: radiology clerk II-XII grossly normal Microbiology Date/Time Source Procedure Growth Status 01/27/18 17:30 Stool Clostridium difficile Toxin Assay - Final Complete 01/25/18 15:19 Urine,Clean Catch Urine Culture - Final Klebsiella Pneumoniae Esbl Complete Laboratory Tests 01/28/18 10:00: Random Amikacin Level [Pending] Current Medications Medications (Trade) Dose Ordered Sig/Soumya Route PRN Reason Start Time Stop Time Status Last Admin Dose Admin Acetaminophen (Tylenol) 650 mg Q4H PRN ORAL Mild Pain/Temp > 100.5 01/25/18 18:30 02/24/18 18:29 01/26/18 11:27 Atorvastatin Calcium (Lipitor) 10 mg BEDTIME ORAL 01/25/18 21:00 02/24/18 20:59 01/27/18 21:08 Carvedilol (Coreg) 12.5 mg EVERY 12 HOURS ORAL 01/25/18 21:00 02/24/18 20:59 01/27/18 21:10 Dabigatran (Pradaxa) 75 mg EVERY 12 HOURS ORAL 01/25/18 21:00 02/24/18 20:59 01/28/18 08:51 Donepezil HCl (Aricept) 5 mg DAILY ORAL 01/26/18 09:00 02/25/18 08:59 01/28/18 08:52 Ertapenem 0.5 gm/ Sodium Chloride 55 ml @ 110 mls/hr Q24H IVPB 01/28/18 14:00 02/02/18 13:59 Furosemide (Lasix) 20 mg DAILY ORAL 01/26/18 09:00 02/25/18 08:59 01/28/18 08:52 Hydralazine HCl (Apresoline) 10 mg Q6HR ORAL 01/25/18 20:00 02/24/18 19:59 01/27/18 23:54 Isosorbide Mononitrate (Imdur) 30 mg DAILY ORAL 01/25/18 20:00 02/24/18 19:59 01/28/18 08:52 Lisinopril (Zestril) 2.5 mg DAILY ORAL 01/27/18 09:00 02/26/18 08:59 Loperamide HCl (Imodium) 2 mg Q4H PRN ORAL Diarrhea 01/27/18 15:30 02/26/18 15:29 01/28/18 08:51 Pantoprazole (Protonix) 40 mg DAILY ORAL 01/26/18 09:00 02/25/18 08:59 01/28/18 08:52 Tamsulosin HCl (Flomax) 0.4 mg BEDTIME ORAL 01/25/18 21:00 02/24/18 20:59 01/27/18 21:08 Eileen Reyna MD Jan 28, 2018 13:40
[2018-01-28] MEDS ORDERED: Ertapenem 0.5 GM in NS 55 ML IVPB SCH (14:00)
--- NOTE | 2018-01-28 15:13 | Consultation ---
Consult Note Consult Note eval for renal failure Patient presents after syncopal episode. When paramedics arrived he was sitting. He was pale at that time. Vital signs apparently were stable. The patient's post pacemaker placement. The patient complains of headache and dysuria. He denies chest pain, palpitations, cough, shortness of breath, nausea , vomiting, diarrhea. He denies any head trauma or joint pain. Headache rated at 4/10, constant, occipital, not radiating. He is hard of hearing chronically. Has poor vision which is unchanged - post cataract surgery. He had a stroke in 2011, but has no residual weakness. Allegedly had "heart attack" in past. 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 H/O HTN. On Flomax. Hx Cardiac Problems: Yes Hx Hypertension: Yes Hx Pacemaker: Yes Hx Cerebrovascular Accident: Yes - AUG 2012 admitted for : Syncope and UTI Assessment/Plan Renal failure- Likely CKD Anemia related to above others: 1. Acute systolic and diastolic CHF, LVEF at 35%, last nuclear stress test showed no ischemia and scar/myocardial infarction in the inferior wall. 2. Slight elevation of troponin not typical for ACS, most likely due to heart failure. 3. Dual-chamber pacemaker implantation, Medtronic, implanted in 2017, appears to be functioning normally. 4. Permanent atrial fibrillation, continue Pradaxa. 5. History of coronary artery disease, no prior hx of cardiac cath per patient. Plan: Optimize cardiac status- avoid nephrotoxics- monitor renal parameters Kidney SHARRON MCNAIR Jan 28, 2018 15:13
[2018-01-28 16:00] VITALS: BP 133/62
--- NOTE | 2018-01-28 16:45 | Consultation ---
DATE OF CONSULTATION: 01/28/2018 INFECTIOUS DISEASE CONSULTATION CONSULTING PHYSICIAN: Toni Rios M.D. REQUESTING PHYSICIAN: Eileen Reyna M.D. REASON FOR CONSULTATION: Evaluation of the patient for fever, urinary tract infection, and antibiotic management. HISTORY OF PRESENT ILLNESS: The patient is an 87-year-old male with multiple medical problems as listed below, who was admitted to this medical center due to weakness and fever. Also, the patient had a syncopal episode and brought to the emergency room. The patient's urine culture is growing ESBL E. coli. An Infectious Disease consultation has been requested for further evaluation of the patient's antibiotic management. PAST MEDICAL HISTORY: 1. The patient is hard of hearing. 2. Two syncopal episodes in the past. 3. CAD, status post myocardial infarction in the past, status post pacemaker placement. 4. Hypertension. 5. Osteoarthritis. 6. History of renal insufficiency. MEDICATIONS: The patient was started on amikacin that was changed to ertapenem. ALLERGIES: No known drug allergies. SOCIAL HISTORY: Negative for alcohol or drug abuse. FAMILY HISTORY: Noncontributory. REVIEW OF SYSTEMS: CONSTITUTIONAL: The patient overall is a poor historian. Much of the information is gathered through the chart and also an oracle technical developer at the bedside assisted for obtaining some information. HEENT: The patient has some runny nose. No sore throat. PULMONARY: No cough. CARDIOVASCULAR: No chest pain or palpitations. GASTROINTESTINAL: No nausea or vomiting. GENITOURINARY: He does have urinary frequency. No dysuria. PHYSICAL EXAMINATION: VITAL SIGNS: Temperature 98 degrees, pulse 86, respiratory rate 18, and temperature 100.2. HEENT: No pale conjunctivae. No icterus. NECK: No lymphadenopathy. CHEST: Clear. HEART: S1 and S2. ABDOMEN: Soft and nontender. EXTREMITY: No cyanosis at this time. NEUROLOGIC: Awake. LABORATORY DATA: White blood cells 5, hemoglobin 10, and platelets 155,000. UA, 10 to 15 white blood cells. BUN 41 and creatinine 2.1. ALT, AST, and alkaline phosphatase is unremarkable. Troponin 0.06. C. diff toxin negative. Urine culture is growing ESBL Klebsiella. Blood culture pending. ASSESSMENT: The patient is an 87-year-old male with, 1. Fever. 2. Probable urinary tract infection. 3. Rule out influenza. 4. Rule out bacteremia. PLAN: 1. We will continue the patient on ertapenem for a total of 10 to 14 days. 2. Monitor CBC. 3. Monitor BMP. 4. Monitor culture (blood). 5. Influenza screening. 6. Based on the patient's clinical course and labs, we will do further recommendations. Thank you, Dr. Reyna, for this consultation. I will follow the patient with you during this admission. Toni Rios M.D. DR: KEARA JOB#: [id number] CC:
--- NOTE | 2018-01-28 17:51 | Cardiology Progress Note ---
Assessment/Plan Assessment/Plan 1. Acute systolic and diastolic CHF, LVEF at 35%, last nuclear stress test showed no ischemia and scar/myocardial infarction in the inferior wall. 2. Slight elevation of troponin not typical for ACS, most likely due to heart failure. 3. Dual-chamber pacemaker implantation, Medtronic, implanted in 2017, appears to be functioning normally. 4. Permanent atrial fibrillation, continue Pradaxa. 5. History of coronary artery disease, no prior hx of cardiac cath per patient. Subjective Subjective Sinus rhythm at 71. Objective Last 24 Hour Vital Signs Date Time Temp Pulse Resp B/P (MAP) Pulse Ox O2 Delivery O2 Flow Rate FiO2 01/28/18 16:00 97.7 71 18 133/62 99 97.7 01/28/18 14:03 114/57 01/28/18 12:00 97.7 60 19 114/57 98 Room Air 97.7 01/28/18 11:15 60 01/28/18 08:53 104/45 01/28/18 08:53 60 104/45 01/28/18 08:52 104/45 01/28/18 08:00 98.1 60 19 104/45 97 Room Air 98.1 01/28/18 07:01 60 01/28/18 06:00 105/51 01/28/18 04:00 60 01/28/18 04:00 100.2 60 17 97/54 94 Room Air 100.2 01/28/18 00:00 65 01/28/18 00:00 98.2 63 17 110/53 96 Room Air 98.2 01/27/18 23:54 110/53 01/27/18 21:10 66 122/68 01/27/18 20:00 97.1 62 18 122/58 98 Room Air 97.1 01/27/18 20:00 60 Intake and Output 01/27/18 01/28/18 19:00 07:00 Intake Total 240 ml Output Total 400 ml Balance -160 ml Intake Oral 240 ml Output Urine Total 400 ml # Voids 3 # Bowel Movements 10 2D Echo: EF 35%, Global HK, H[place]IL[place],elevated RAP,Mild AR/MR,Grade II LVDD,RVSP 41 mmHg Laboratory Tests Test 01/28/18 10:00 Random Amikacin Level Pending Microbiology Date/Time Source Procedure Growth Status 01/27/18 17:30 Stool Clostridium difficile Toxin Assay - Final Complete Objective HEENT: Atraumatic and normocephalic. ENT, pupils are equal, round, and reactive to light and accommodation. There is periorbital edema. Conjunctival pallor. NECK: JVP is less than 5 cm. No carotid bruit. Carotid upstrokes 2+ bilaterally. CARDIOVASCULAR: Normal S1 and S2. Regular rate and rhythm. There is 2/6 mid systolic murmur at the left sternal border. PMI is at fourth intercostal space at the midclavicular line. LUNGS: Clear to auscultation bilaterally. ABDOMEN: Soft, nontender, and nondistended. No hepatosplenomegaly. Positive bowel sounds. EXTREMITIES: No evidence of edema, clubbing, or cyanosis. MALINDA FREY Jan 28, 2018 17:51
[2018-01-28] MEDS ORDERED: Loperamide 2mg cap ORAL PRN (19:30)
[2018-01-28 20:00] VITALS: BP 116/57
[2018-01-28] MEDS ORDERED: Atorvastatin 20mg tab ORAL SCH (21:00)
[2018-01-28] MEDS: Tamsulosin 0.4mg cap ORAL SCH (21:06)
[2018-01-28] MEDS: Atorvastatin 20mg tab ORAL SCH (21:09)
[2018-01-29] VITALS (7 sets, daily range): BP systolic 98–149; BP diastolic 53–71
[2018-01-29] MEDS: HydrALAZINE 10mg Tab ORAL SCH ×5 (05:05→22:49)
[2018-01-29 07:59] LABS: BASOPHILS % (AUTO) 0.8 % (0.0-2.0); EOSINOPHILS % (AUTO) 4.3 % (0.0-3.0); HEMATOCRIT 30.3 % (42.0-52.0); HEMOGLOBIN 9.9 G/DL (14.2-18.0); LYMPHOCYTES % (AUTO) 33.4 % (20.0-45.0); MEAN CORPUSCULAR VOLUME 98 FL (80-99); MONOCYTES % (AUTO) 11.4 % (1.0-10.0); NEUTROPHILS % (AUTO) 50.1 % (45.0-75.0); PLATELET COUNT 164 K/UL (150-450); RED BLOOD COUNT 3.09 M/UL (4.70-6.10); RED CELL DISTRIBUTION WIDTH 14.2 % (11.6-14.8); WHITE BLOOD COUNT 4.4 K/UL (4.8-10.8)
[2018-01-29 08:26] LABS: ALANINE AMINOTRANSFERASE 15 U/L (12-78); ALBUMIN 2.7 G/DL (3.4-5.0); ALBUMIN/GLOBULIN RATIO 0.7 (1.0-2.7); ALKALINE PHOSPHATASE 96 U/L (46-116); ANION GAP 8 mmol/L (5-15); ASPARTATE AMINO TRANSFERASE 20 U/L (15-37); BILIRUBIN,TOTAL 0.3 MG/DL (0.2-1.0); BLOOD UREA NITROGEN 40 mg/dL (7-18); CALCIUM 8.1 MG/DL (8.5-10.1); CARBON DIOXIDE 23 MMOL/L (21-32); CHLORIDE 105 MMOL/L (98-107); POTASSIUM 4.4 MMOL/L (3.5-5.1); SODIUM 136 MMOL/L (136-145)
--- NOTE | 2018-01-29 08:34 | Infectious Diseases Prog Note ---
Assessment/Plan Assessment/Plan ASSESSMENT: The patient is an 87-year-old male with, Fever. Probable urinary tract infection. influenza. Neg Rule out bacteremia. Hard of hearing. hx of syncopal episodes in the past. CAD, status post myocardial infarction in the past, status post pacemaker placement. Hypertension. Osteoarthritis. History of renal insufficiency PLAN: will continue the patient on ertapenem d# 2 / 10 d Monitor CBC. Monitor BMP. Monitor culture (blood) Subjective Constitutional: Denies: no symptoms, fever, chills, fatigue, anorexia, drenching sweats, other Allergies: Coded Allergies: No Known Allergies (Unverified , 09/27/15) Objective Vital Signs Last 24 Hour Vital Signs Date Time Temp Pulse Resp B/P (MAP) Pulse Ox O2 Delivery O2 Flow Rate FiO2 01/29/18 05:05 98/56 01/29/18 04:00 97.6 60 20 98/56 99 97.6 01/29/18 00:00 107/53 01/29/18 00:00 97.2 62 21 107/53 98 97.2 01/28/18 21:00 60 116/57 01/28/18 20:00 97.7 60 22 116/57 98 97.7 01/28/18 18:30 133/62 01/28/18 16:00 97.7 71 18 133/62 99 97.7 01/28/18 14:03 114/57 01/28/18 12:00 97.7 60 19 114/57 98 Room Air 97.7 01/28/18 11:15 60 01/28/18 08:53 104/45 01/28/18 08:53 60 104/45 01/28/18 08:52 104/45 Height (Feet): 5 Height (Inches): 5.00 Weight (Pounds): 120 HEENT: anicteric Respiratory/Chest: no accessory muscle use Cardiovascular: regularly irregular Abdomen: no organomegaly Microbiology Date/Time Source Procedure Growth Status 01/28/18 19:55 Nasopharynx Influenza Types A,B Antigen (PRAVEEN) - Final Complete 01/27/18 17:30 Stool Clostridium difficile Toxin Assay - Final Complete Laboratory Tests Test 01/28/18 10:00 01/28/18 15:12 01/29/18 06:40 Random Amikacin Level 21.3 MG/L Urine Random Sodium 45 mmol/L (20-110) White Blood Count 4.4 K/UL (4.8-10.8) L Red Blood Count 3.09 M/UL (4.70-6.10) L Hemoglobin 9.9 G/DL (14.2-18.0) L Hematocrit 30.3 % (42.0-52.0) L Mean Corpuscular Volume 98 FL (80-99) Mean Corpuscular Hemoglobin 32.1 PG (27.0-31.0) H Mean Corpuscular Hemoglobin Concent 32.8 G/DL (32.0-36.0) Red Cell Distribution Width 14.2 % (11.6-14.8) Platelet Count 164 K/UL (150-450) Mean Platelet Volume 6.2 FL (6.5-10.1) L Neutrophils (%) (Auto) 50.1 % (45.0-75.0) Lymphocytes (%) (Auto) 33.4 % (20.0-45.0) Monocytes (%) (Auto) 11.4 % (1.0-10.0) H Eosinophils (%) (Auto) 4.3 % (0.0-3.0) H Basophils (%) (Auto) 0.8 % (0.0-2.0) Sodium Level Pending Potassium Level Pending Chloride Level Pending Carbon Dioxide Level Pending Blood Urea Nitrogen Pending Creatinine Pending Estimat Glomerular Filtration Rate Pending Glucose Level Pending Uric Acid Pending Calcium Level Pending Phosphorus Level Pending Magnesium Level Pending Total Bilirubin Pending Aspartate Amino Transf (AST/SGOT) Pending Alanine Aminotransferase (ALT/SGPT) Pending Alkaline Phosphatase Pending Troponin I Pending Pro-B-Type Natriuretic Peptide Pending Total Protein Pending Albumin Pending Globulin Pending Current Medications Medications (Trade) Dose Ordered Sig/Soumya Route PRN Reason Start Time Stop Time Status Last Admin Dose Admin Acetaminophen (Tylenol) 650 mg Q4H PRN ORAL Mild Pain/Temp > 100.5 01/28/18 22:30 02/24/18 18:29 Atorvastatin Calcium (Lipitor) 40 mg BEDTIME ORAL 01/28/18 21:00 02/27/18 20:59 01/28/18 21:09 Carvedilol (Coreg) 12.5 mg EVERY 12 HOURS ORAL 01/28/18 21:00 02/24/18 20:59 Dabigatran (Pradaxa) 75 mg EVERY 12 HOURS ORAL 01/28/18 21:00 02/24/18 20:59 01/28/18 21:06 Donepezil HCl (Aricept) 5 mg DAILY ORAL 01/29/18 09:00 02/25/18 08:59 Ertapenem 0.5 gm/ Sodium Chloride 55 ml @ 110 mls/hr Q24H IVPB 01/29/18 14:00 02/02/18 13:59 Hydralazine HCl (Apresoline) 10 mg Q6HR ORAL 01/29/18 00:00 02/24/18 19:59 Isosorbide Mononitrate (Imdur) 30 mg DAILY ORAL 01/29/18 09:00 02/24/18 19:59 Lisinopril (Zestril) 2.5 mg DAILY ORAL 01/29/18 09:00 02/26/18 08:59 Loperamide HCl (Imodium) 2 mg Q4H PRN ORAL Diarrhea 01/28/18 19:30 02/26/18 15:29 Pantoprazole (Protonix) 40 mg DAILY ORAL 01/29/18 09:00 02/25/18 08:59 Tamsulosin HCl (Flomax) 0.4 mg BEDTIME ORAL 01/28/18 21:00 02/24/18 20:59 01/28/18 21:06 Toni Rios MD Jan 29, 2018 08:34
[2018-01-29 09:18] LABS: PHOSPHORUS 4.4 MG/DL (2.5-4.9)
[2018-01-29] MEDS: Lisinopril 2.5mg tab ORAL SCH (09:46)
[2018-01-29] MEDS: Imdur 30mg tab ORAL SCH (09:46)
[2018-01-29] MEDS: Donepezil 5mg Tab ORAL SCH (09:46)
[2018-01-29] MEDS: Carvedilol 12.5mg tab ORAL SCH ×2 (09:47→22:48)
--- NOTE | 2018-01-29 10:25 | Diagnostic Imaging Report ---
Indication: Dyspnea Technique: One view of the chest Comparison: 01/25/2018 Findings: The heart is enlarged. There is a left-sided bipolar pacemaker. Lungs and pleural spaces remain clear. The aorta is tortuous and calcified. Previously demonstrated pulmonary interstitial congestion is largely resolved. There is mild central bronchial wall thickening, probably chronic Impression: No acute process. Improved interstitial congestion over 4 days Cardiomegaly.
[2018-01-29] MEDS: Ertapenem 0.5 GM in NS 55 ML IVPB SCH (14:20)
--- NOTE | 2018-01-29 17:52 | Nephrology Progress Note ---
Assessment/Plan Problem List: (1) CKD (chronic kidney disease) (2) Cardiomyopathy (3) Anemia (4) Pacemaker (5) UTI (urinary tract infection) Assessment Renal failure- Likely CKD Anemia related to above others: 1. Acute systolic and diastolic CHF, LVEF at 35%, last nuclear stress test showed no ischemia and scar/myocardial infarction in the inferior wall. 2. Slight elevation of troponin not typical for ACS, most likely due to heart failure. 3. Dual-chamber pacemaker implantation, [employer]tr[employer], implanted in 2017, appears to be functioning normally. 4. Permanent atrial fibrillation, continue Pradaxa. 5. History of coronary artery disease, no prior hx of cardiac cath per patient. Plan Optimize cardiac status- avoid nephrotoxics- monitor renal parameters Kidney CÉSAR per orders Subjective ROS Limited/Unobtainable: No Constitutional: Reports: malaise Objective Objective Last 24 Hour Vital Signs Date Time Temp Pulse Resp B/P (MAP) Pulse Ox O2 Delivery O2 Flow Rate FiO2 01/29/18 17:41 122/58 01/29/18 16:00 97.5 62 19 114/60 97 Room Air 97.5 01/29/18 13:02 143/61 01/29/18 12:00 97.6 62 20 143/61 98 Room Air 97.6 01/29/18 09:47 64 149/59 01/29/18 09:46 149/59 01/29/18 09:46 149/59 01/29/18 08:00 97.6 64 20 149/59 99 Room Air 97.6 01/29/18 05:05 98/56 01/29/18 04:00 97.6 60 20 98/56 99 97.6 01/29/18 00:00 107/53 01/29/18 00:00 97.2 62 21 107/53 98 97.2 01/28/18 21:00 60 116/57 01/28/18 20:00 97.7 60 22 116/57 98 97.7 01/28/18 18:30 133/62 Intake and Output 01/28/18 01/29/18 19:00 07:00 Intake Total 716 ml Output Total 350 ml 500 ml Balance 366 ml -500 ml Intake Oral 716 ml Output Urine Total 350 ml 500 ml # Voids 1 # Bowel Movements 5 2 Laboratory Tests 01/29/18 06:40: White Blood Count 4.4L, Red Blood Count 3.09L, Hemoglobin 9.9L, Hematocrit 30.3L , Mean Corpuscular Volume 98, Mean Corpuscular Hemoglobin 32.1H, Mean Corpuscular Hemoglobin Concent 32.8, Red Cell Distribution Width 14.2, Platelet Count 164, Mean Platelet Volume 6.2L, Neutrophils (%) (Auto) 50.1, Lymphocytes ( %) (Auto) 33.4, Monocytes (%) (Auto) 11.4H, Eosinophils (%) (Auto) 4.3H, Basophils (%) (Auto) 0.8, Sodium Level 136, Potassium Level 4.4, Chloride Level 105, Carbon Dioxide Level 23, Anion Gap 8, Blood Urea Nitrogen 40H, Creatinine 2.0H, Estimat Glomerular Filtration Rate , Glucose Level 90, Uric Acid 9.1H, Calcium Level 8.1L, Phosphorus Level 4.4, Magnesium Level 1.8, Total Bilirubin 0.3, Aspartate Amino Transf (AST/SGOT) 20, Alanine Aminotransferase (ALT/SGPT) 15, Alkaline Phosphatase 96, Troponin I 0.032, Pro-B-Type Natriuretic Peptide 10444M, Total Protein 6.4, Albumin 2.7L, Globulin 3.7, Albumin/Globulin Ratio 0.7L Height (Feet): 5 Height (Inches): 5.00 Weight (Pounds): 120 General Appearance: no apparent distress Cardiovascular: pacemaker/AICD Respiratory/Chest: decreased breath sounds Abdomen: soft SHARRON ORTA Jan 29, 2018 17:52
--- NOTE | 2018-01-29 19:15 | Pulmonology Progress Note ---
Assessment/Plan Problems: (1) Infection due to ESBL-producing Klebsiella pneumoniae (2) UTI (urinary tract infection) (3) Acute end-stage systolic heart failure (4) EF 30% (5) Severe protein-calorie malnutrition Assessment/Plan afebrile, wbc normal iv abx as per ID check cultures symptomatic treatment Subjective Allergies: Coded Allergies: No Known Allergies (Unverified , 09/27/15) Objective Last 24 Hour Vital Signs Date Time Temp Pulse Resp B/P (MAP) Pulse Ox O2 Delivery O2 Flow Rate FiO2 01/29/18 17:41 122/58 01/29/18 16:00 97.5 62 19 114/60 97 Room Air 97.5 01/29/18 13:02 143/61 01/29/18 12:00 97.6 62 20 143/61 98 Room Air 97.6 01/29/18 09:47 64 149/59 01/29/18 09:46 149/59 01/29/18 09:46 149/59 01/29/18 08:00 97.6 64 20 149/59 99 Room Air 97.6 01/29/18 05:05 98/56 01/29/18 04:00 97.6 60 20 98/56 99 97.6 01/29/18 00:00 107/53 01/29/18 00:00 97.2 62 21 107/53 98 97.2 01/28/18 21:00 60 116/57 01/28/18 20:00 97.7 60 22 116/57 98 97.7 Intake and Output 01/28/18 01/29/18 19:00 07:00 Intake Total 716 ml Output Total 350 ml 500 ml Balance 366 ml -500 ml Intake Oral 716 ml Output Urine Total 350 ml 500 ml # Voids 1 # Bowel Movements 5 2 Objective General Appearance: cachetic Lines, tubes and drains: peripheral HEENT: normocephalic, atraumatic Neck: non-tender, normal alignment Respiratory/Chest: chest wall non-tender, lungs clear Cardiovascular/Chest: normal peripheral pulses, regular rhythm, regularly irregular Abdomen: normal bowel sounds, non tender, soft Extremities: normal range of motion, normal inspection Microbiology Date/Time Source Procedure Growth Status 01/28/18 19:55 Nasopharynx Influenza Types A,B Antigen (PRAVEEN) - Final Complete 01/27/18 17:30 Stool Clostridium difficile Toxin Assay - Final Complete Laboratory Tests 01/29/18 06:40: White Blood Count 4.4L, Red Blood Count 3.09L, Hemoglobin 9.9L, Hematocrit 30.3L , Mean Corpuscular Volume 98, Mean Corpuscular Hemoglobin 32.1H, Mean Corpuscular Hemoglobin Concent 32.8, Red Cell Distribution Width 14.2, Platelet Count 164, Mean Platelet Volume 6.2L, Neutrophils (%) (Auto) 50.1, Lymphocytes ( %) (Auto) 33.4, Monocytes (%) (Auto) 11.4H, Eosinophils (%) (Auto) 4.3H, Basophils (%) (Auto) 0.8, Sodium Level 136, Potassium Level 4.4, Chloride Level 105, Carbon Dioxide Level 23, Anion Gap 8, Blood Urea Nitrogen 40H, Creatinine 2.0H, Estimat Glomerular Filtration Rate , Glucose Level 90, Uric Acid 9.1H, Calcium Level 8.1L, Phosphorus Level 4.4, Magnesium Level 1.8, Total Bilirubin 0.3, Aspartate Amino Transf (AST/SGOT) 20, Alanine Aminotransferase (ALT/SGPT) 15, Alkaline Phosphatase 96, Troponin I 0.032, C-Reactive Protein, Quantitative 2.3H, Pro-B-Type Natriuretic Peptide 48777B, Total Protein 6.4, Albumin 2.7L, Globulin 3.7, Albumin/Globulin Ratio 0.7L Current Medications Medications (Trade) Dose Ordered Sig/Soumya Route PRN Reason Start Time Stop Time Status Last Admin Dose Admin Acetaminophen (Tylenol) 650 mg Q4H PRN ORAL Mild Pain/Temp > 100.5 01/28/18 22:30 02/24/18 18:29 Atorvastatin Calcium (Lipitor) 40 mg BEDTIME ORAL 01/28/18 21:00 02/27/18 20:59 01/28/18 21:09 Carvedilol (Coreg) 12.5 mg EVERY 12 HOURS ORAL 01/28/18 21:00 02/24/18 20:59 01/29/18 09:47 Dabigatran (Pradaxa) 75 mg EVERY 12 HOURS ORAL 01/28/18 21:00 02/24/18 20:59 01/29/18 09:46 Donepezil HCl (Aricept) 5 mg DAILY ORAL 01/29/18 09:00 02/25/18 08:59 01/29/18 09:46 Ertapenem 0.5 gm/ Sodium Chloride 55 ml @ 110 mls/hr Q24H IVPB 01/29/18 14:00 02/02/18 13:59 01/29/18 14:20 Hydralazine HCl (Apresoline) 10 mg Q8HR ORAL 01/29/18 22:00 02/24/18 19:59 Isosorbide Mononitrate (Imdur) 30 mg DAILY ORAL 01/29/18 09:00 02/24/18 19:59 01/29/18 09:46 Lisinopril (Zestril) 2.5 mg DAILY ORAL 01/29/18 09:00 02/26/18 08:59 01/29/18 09:46 Loperamide HCl (Imodium) 2 mg Q4H PRN ORAL Diarrhea 01/28/18 19:30 02/26/18 15:29 Pantoprazole (Protonix) 40 mg DAILY ORAL 01/29/18 09:00 02/25/18 08:59 01/29/18 09:47 Tamsulosin HCl (Flomax) 0.4 mg BEDTIME ORAL 01/28/18 21:00 02/24/18 20:59 01/28/18 21:06 Eileen Reyna MD Jan 29, 2018 19:15
[2018-01-29 22:16] LABS: APPEARANCE,URINE CLEAR; BILIRUBIN, URINE NEGATIVE (NEGATIVE); COLOR,URINE PALE YELLOW; GLUCOSE, URINE (UA) NEGATIVE (NEGATIVE); KETONES,URINE NEGATIVE (NEGATIVE); LEUKOCYTE ESTERASE ,URINE 2+ (NEGATIVE); NITRITE,URINE NEGATIVE (NEGATIVE); PH,URINE 5 (4.5-8.0); PROTEIN,URINE NEGATIVE (NEGATIVE); UROBILINOGEN,URINE NORMAL MG/DL (0.0-1.0)
--- NOTE | 2018-01-29 22:43 | Cardiology Progress Note ---
Assessment/Plan Assessment/Plan 1. Acute systolic and diastolic CHF, LVEF at 35%, BNP downtrending, low dose diuretics if OK with renal team. 2. Slight elevation of troponin not typical for ACS, most likely due to heart failure. Recent nuclear stress test has shown no myocardial wall ischemia and scar/myocardial infarction in the inferior wall. 3. Dual-chamber pacemaker implantation, Medtronic, implanted in 2017, appears to be functioning normally. 4. Permanent atrial fibrillation, continue Pradaxa. 5. History of coronary artery disease, no prior hx of cardiac cath per patient. Subjective Subjective Transferred to the non-tele bed. No chest pain or SOB at this time. Objective Last 24 Hour Vital Signs Date Time Temp Pulse Resp B/P (MAP) Pulse Ox O2 Delivery O2 Flow Rate FiO2 01/29/18 20:11 97.3 63 17 117/60 100 Room Air 97.3 01/29/18 17:41 122/58 01/29/18 16:00 97.5 62 19 114/60 97 Room Air 97.5 01/29/18 13:02 143/61 01/29/18 12:00 97.6 62 20 143/61 98 Room Air 97.6 01/29/18 09:47 64 149/59 01/29/18 09:46 149/59 01/29/18 09:46 149/59 01/29/18 08:00 97.6 64 20 149/59 99 Room Air 97.6 01/29/18 05:05 98/56 01/29/18 04:00 97.6 60 20 98/56 99 97.6 01/29/18 00:00 107/53 01/29/18 00:00 97.2 62 21 107/53 98 97.2 Intake and Output 01/28/18 01/29/18 19:00 07:00 Intake Total 716 ml Output Total 350 ml 500 ml Balance 366 ml -500 ml Intake Oral 716 ml Output Urine Total 350 ml 500 ml # Voids 1 # Bowel Movements 5 2 2D Echo: EF 35%, Global HK, [place],elevated RAP,Mild AR/MR,Grade II LVDD,RVSP 41 mmHg Laboratory Tests Test 01/29/18 06:40 01/29/18 21:30 White Blood Count 4.4 K/UL (4.8-10.8) L Red Blood Count 3.09 M/UL (4.70-6.10) L Hemoglobin 9.9 G/DL (14.2-18.0) L Hematocrit 30.3 % (42.0-52.0) L Mean Corpuscular Volume 98 FL (80-99) Mean Corpuscular Hemoglobin 32.1 PG (27.0-31.0) H Mean Corpuscular Hemoglobin Concent 32.8 G/DL (32.0-36.0) Red Cell Distribution Width 14.2 % (11.6-14.8) Platelet Count 164 K/UL (150-450) Mean Platelet Volume 6.2 FL (6.5-10.1) L Neutrophils (%) (Auto) 50.1 % (45.0-75.0) Lymphocytes (%) (Auto) 33.4 % (20.0-45.0) Monocytes (%) (Auto) 11.4 % (1.0-10.0) H Eosinophils (%) (Auto) 4.3 % (0.0-3.0) H Basophils (%) (Auto) 0.8 % (0.0-2.0) Sodium Level 136 MMOL/L (136-145) Potassium Level 4.4 MMOL/L (3.5-5.1) Chloride Level 105 MMOL/L (98-107) Carbon Dioxide Level 23 MMOL/L (21-32) Anion Gap 8 mmol/L (5-15) Blood Urea Nitrogen 40 mg/dL (7-18) H Creatinine 2.0 MG/DL (0.55-1.30) H Estimat Glomerular Filtration Rate mL/min (>60) Glucose Level 90 MG/DL (74-106) Uric Acid 9.1 MG/DL (2.6-7.2) H Calcium Level 8.1 MG/DL (8.5-10.1) L Phosphorus Level 4.4 MG/DL (2.5-4.9) Magnesium Level 1.8 MG/DL (1.8-2.4) Total Bilirubin 0.3 MG/DL (0.2-1.0) Aspartate Amino Transf (AST/SGOT) 20 U/L (15-37) Alanine Aminotransferase (ALT/SGPT) 15 U/L (12-78) Alkaline Phosphatase 96 U/L (46-116) Troponin I 0.032 ng/mL (0.000-0.056) C-Reactive Protein, Quantitative 2.3 mg/dL (0.00-0.90) H Pro-B-Type Natriuretic Peptide 01948 pg/mL (0-125) H Total Protein 6.4 G/DL (6.4-8.2) Albumin 2.7 G/DL (3.4-5.0) L Globulin 3.7 g/dL Albumin/Globulin Ratio 0.7 (1.0-2.7) L Urine Color Pale yellow Urine Appearance Clear Urine pH 5 (4.5-8.0) Urine Specific [place] 1.010 (1.005-1.035) Urine Protein Negative (NEGATIVE) Urine Glucose (UA) Negative (NEGATIVE) Urine Ketones Negative (NEGATIVE) Urine Occult Blood 2+ (NEGATIVE) H Urine Nitrite Negative (NEGATIVE) Urine Bilirubin Negative (NEGATIVE) Urine Urobilinogen Normal MG/DL (0.0-1.0) Urine Leukocyte Esterase 2+ (NEGATIVE) H Urine RBC 5-10 /HPF (0 - 0) H Urine WBC 2-4 /HPF (0 - 0) Urine Squamous Epithelial Cells None /LPF (NONE/OCC) Urine Bacteria Few /HPF (NONE) Microbiology Date/Time Source Procedure Growth Status 01/28/18 19:55 Nasopharynx Influenza Types A,B Antigen (PRAVEEN) - Final Complete 01/27/18 17:30 Stool Clostridium difficile Toxin Assay - Final Complete Objective HEENT: Atraumatic and normocephalic. ENT, pupils are equal, round, and reactive to light and accommodation. There is periorbital edema. Conjunctival pallor. NECK: JVP is less than 5 cm. No carotid bruit. Carotid upstrokes 2+ bilaterally. CARDIOVASCULAR: Normal S1 and S2. Regular rate and rhythm. There is 2/6 mid systolic murmur at the left sternal border. PMI is at fourth intercostal space at the midclavicular line. LUNGS: Clear to auscultation bilaterally. ABDOMEN: Soft, nontender, and nondistended. No hepatosplenomegaly. Positive bowel sounds. EXTREMITIES: No evidence of edema, clubbing, or cyanosis. MALINDA FREY Jan 29, 2018 22:43
[2018-01-29] MEDS: Atorvastatin 20mg tab ORAL SCH (22:48)
[2018-01-29] MEDS: Tamsulosin 0.4mg cap ORAL SCH (22:48)
[2018-01-30] VITALS (8 sets, daily range): BP systolic 115–136; BP diastolic 51–72
[2018-01-30] MEDS: HydrALAZINE 10mg Tab ORAL SCH ×3 (05:02→20:55)
[2018-01-30 07:18] LABS: BASOPHILS % (AUTO) 0.5 % (0.0-2.0); EOSINOPHILS % (AUTO) 4.3 % (0.0-3.0); HEMOGLOBIN 9.2 G/DL (14.2-18.0); LYMPHOCYTES % (AUTO) 34.8 % (20.0-45.0); MEAN CORPUSCULAR VOLUME 98 FL (80-99); MONOCYTES % (AUTO) 8.9 % (1.0-10.0); NEUTROPHILS % (AUTO) 51.5 % (45.0-75.0); PLATELET COUNT 154 K/UL (150-450); RED BLOOD COUNT 2.97 M/UL (4.70-6.10); RED CELL DISTRIBUTION WIDTH 13.8 % (11.6-14.8)
[2018-01-30 07:25] LABS: ALANINE AMINOTRANSFERASE 22 U/L (12-78); ALBUMIN 2.5 G/DL (3.4-5.0); ALBUMIN/GLOBULIN RATIO 0.7 (1.0-2.7); ALKALINE PHOSPHATASE 110 U/L (46-116); ANION GAP 5 mmol/L (5-15); ASPARTATE AMINO TRANSFERASE 21 U/L (15-37); BILIRUBIN,TOTAL 0.3 MG/DL (0.2-1.0); BLOOD UREA NITROGEN 36 mg/dL (7-18); CALCIUM 7.9 MG/DL (8.5-10.1); CARBON DIOXIDE 25 MMOL/L (21-32); CHLORIDE 104 MMOL/L (98-107); CHOLESTEROL 94 MG/DL (< 200); FERRITIN 43 NG/ML (8-388); GAMMA GLUTAMYL TRANSPEPTIDASE 109 U/L (5-85); HDL CHOLESTEROL 59 MG/DL (40-60); POTASSIUM 4.5 MMOL/L (3.5-5.1); SODIUM 134 MMOL/L (136-145); TRIGLYCERIDES 27 MG/DL (30-150)
[2018-01-30] MEDS: Imdur 30mg tab ORAL SCH ×2 (08:57→09:00)
[2018-01-30] MEDS: Donepezil 5mg Tab ORAL SCH (08:59)
[2018-01-30] MEDS: Lisinopril 2.5mg tab ORAL SCH (09:00)
[2018-01-30] MEDS: Carvedilol 12.5mg tab ORAL SCH ×2 (09:00→20:55)
--- NOTE | 2018-01-30 09:38 | Infectious Diseases Prog Note ---
Assessment/Plan Assessment/Plan ASSESSMENT: The patient is an 87-year-old male with, Fever, SP Probable urinary tract infection. influenza. Neg Rule out bacteremia. Hard of hearing. hx of syncopal episodes in the past. CAD, status post myocardial infarction in the past, status post pacemaker placement. Hypertension. Osteoarthritis. History of renal insufficiency PLAN: will continue the patient on ertapenem d# 3 / 10 d Monitor CBC. Monitor BMP. Monitor culture (blood) Subjective Allergies: Coded Allergies: No Known Allergies (Unverified , 09/27/15) Objective Vital Signs Last 24 Hour Vital Signs Date Time Temp Pulse Resp B/P (MAP) Pulse Ox O2 Delivery O2 Flow Rate FiO2 01/30/18 08:53 61 115/52 01/30/18 08:00 98.3 67 22 118/54 99 Room Air 98.3 01/30/18 05:02 126/63 01/30/18 04:00 98.4 61 16 126/51 99 Room Air 98.4 01/29/18 23:58 97.2 64 16 106/71 98 Room Air 97.2 01/29/18 22:49 120/63 01/29/18 22:48 63 120/63 01/29/18 20:11 97.3 63 17 117/60 100 Room Air 97.3 01/29/18 17:41 122/58 01/29/18 16:00 97.5 62 19 114/60 97 Room Air 97.5 01/29/18 13:02 143/61 01/29/18 12:00 97.6 62 20 143/61 98 Room Air 97.6 01/29/18 09:47 64 149/59 01/29/18 09:46 149/59 01/29/18 09:46 149/59 Height (Feet): 5 Height (Inches): 5.00 Weight (Pounds): 120 HEENT: anicteric Respiratory/Chest: no respiratory distress Cardiovascular: regularly irregular Abdomen: no organomegaly Extremities: no clubbing Microbiology Date/Time Source Procedure Growth Status 01/28/18 18:00 Blood Blood Culture - Preliminary NO GROWTH AFTER 24 HOURS Resulted 01/28/18 17:55 Blood Blood Culture - Preliminary NO GROWTH AFTER 24 HOURS Resulted 01/28/18 19:55 Nasopharynx Influenza Types A,B Antigen (PRAVEEN) - Final Complete 01/27/18 17:30 Stool Clostridium difficile Toxin Assay - Final Complete Laboratory Tests Test 01/29/18 21:30 01/30/18 05:25 Urine Color Pale yellow Urine Appearance Clear Urine pH 5 (4.5-8.0) Urine Specific [place] 1.010 (1.005-1.035) Urine Protein Negative (NEGATIVE) Urine Glucose (UA) Negative (NEGATIVE) Urine Ketones Negative (NEGATIVE) Urine Occult Blood 2+ (NEGATIVE) H Urine Nitrite Negative (NEGATIVE) Urine Bilirubin Negative (NEGATIVE) Urine Urobilinogen Normal MG/DL (0.0-1.0) Urine Leukocyte Esterase 2+ (NEGATIVE) H Urine RBC 5-10 /HPF (0 - 0) H Urine WBC 2-4 /HPF (0 - 0) Urine Squamous Epithelial Cells None /LPF (NONE/OCC) Urine Bacteria Few /HPF (NONE) White Blood Count 5.0 K/UL (4.8-10.8) Red Blood Count 2.97 M/UL (4.70-6.10) L Hemoglobin 9.2 G/DL (14.2-18.0) L Hematocrit 29.0 % (42.0-52.0) L Mean Corpuscular Volume 98 FL (80-99) Mean Corpuscular Hemoglobin 31.1 PG (27.0-31.0) H Mean Corpuscular Hemoglobin Concent 31.9 G/DL (32.0-36.0) L Red Cell Distribution Width 13.8 % (11.6-14.8) Platelet Count 154 K/UL (150-450) Mean Platelet Volume 6.4 FL (6.5-10.1) L Neutrophils (%) (Auto) 51.5 % (45.0-75.0) Lymphocytes (%) (Auto) 34.8 % (20.0-45.0) Monocytes (%) (Auto) 8.9 % (1.0-10.0) Eosinophils (%) (Auto) 4.3 % (0.0-3.0) H Basophils (%) (Auto) 0.5 % (0.0-2.0) Sodium Level 134 MMOL/L (136-145) L Potassium Level 4.5 MMOL/L (3.5-5.1) Chloride Level 104 MMOL/L (98-107) Carbon Dioxide Level 25 MMOL/L (21-32) Anion Gap 5 mmol/L (5-15) Blood Urea Nitrogen 36 mg/dL (7-18) H Creatinine 2.0 MG/DL (0.55-1.30) H Estimat Glomerular Filtration Rate mL/min (>60) Glucose Level 103 MG/DL (74-106) Hemoglobin A1c 6.9 % (4.3-6.0) H Uric Acid 9.1 MG/DL (2.6-7.2) H Calcium Level 7.9 MG/DL (8.5-10.1) L Phosphorus Level 4.0 MG/DL (2.5-4.9) Magnesium Level 1.7 MG/DL (1.8-2.4) L Ferritin 43 NG/ML (8-388) Total Bilirubin 0.3 MG/DL (0.2-1.0) Gamma Glutamyl Transpeptidase 109 U/L (5-85) H Aspartate Amino Transf (AST/SGOT) 21 U/L (15-37) Alanine Aminotransferase (ALT/SGPT) 22 U/L (12-78) Alkaline Phosphatase 110 U/L (46-116) Troponin I 0.049 ng/mL (0.000-0.056) Pro-B-Type Natriuretic Peptide 96993 pg/mL (0-125) H Total Protein 6.1 G/DL (6.4-8.2) L Albumin 2.5 G/DL (3.4-5.0) L Globulin 3.6 g/dL Albumin/Globulin Ratio 0.7 (1.0-2.7) L Triglycerides Level 27 MG/DL (30-150) L Cholesterol Level 94 MG/DL (< 200) LDL Cholesterol 31 mg/dL (<100) HDL Cholesterol 59 MG/DL (40-60) Cholesterol/HDL Ratio 1.6 (3.3-4.4) L Vitamin B12 Level 427 PG/ML (193-986) Folate 17.6 NG/ML (8.6-58.9) Thyroid Stimulating Hormone (TSH) 2.810 uiU/mL (0.358-3.740) Current Medications Medications (Trade) Dose Ordered Sig/Soumya Route PRN Reason Start Time Stop Time Status Last Admin Dose Admin Acetaminophen (Tylenol) 650 mg Q4H PRN ORAL Mild Pain/Temp > 100.5 01/28/18 22:30 4/29/18 18:29 Atorvastatin Calcium (Lipitor) 40 mg BEDTIME ORAL 01/28/18 21:00 02/27/18 20:59 01/29/18 22:48 Carvedilol (Coreg) 12.5 mg EVERY 12 HOURS ORAL 01/28/18 21:00 02/24/18 20:59 01/29/18 22:48 Dabigatran (Pradaxa) 75 mg EVERY 12 HOURS ORAL 01/28/18 21:00 02/24/18 20:59 01/30/18 08:57 Donepezil HCl (Aricept) 5 mg DAILY ORAL 01/29/18 09:00 02/25/18 08:59 01/30/18 08:59 Ertapenem 0.5 gm/ Sodium Chloride 55 ml @ 110 mls/hr Q24H IVPB 01/29/18 14:00 02/02/18 13:59 01/29/18 14:20 Furosemide (Lasix) 20 mg DAILY ORAL 01/30/18 09:00 03/01/18 08:59 01/30/18 08:59 Hydralazine HCl (Apresoline) 10 mg Q8HR ORAL 01/29/18 22:00 02/24/18 19:59 01/30/18 05:02 Isosorbide Mononitrate (Imdur) 30 mg DAILY ORAL 01/29/18 09:00 02/24/18 19:59 01/29/18 09:46 Lisinopril (Zestril) 2.5 mg DAILY ORAL 01/29/18 09:00 02/26/18 08:59 01/29/18 09:46 Loperamide HCl (Imodium) 2 mg Q4H PRN ORAL Diarrhea 01/28/18 19:30 02/26/18 15:29 Pantoprazole (Protonix) 40 mg DAILY ORAL 01/29/18 09:00 02/25/18 08:59 01/30/18 08:58 Tamsulosin HCl (Flomax) 0.4 mg BEDTIME ORAL 01/28/18 21:00 02/24/18 20:59 01/29/18 22:48 Toni Rios MD Jan 30, 2018 09:38
--- NOTE | 2018-01-30 11:03 | Diagnostic Imaging Report ---
Indication: Cough Comparison: 01/29/2018 A single view chest radiograph was obtained. Findings: No obvious infiltrate identified. Pulmonary vascularity is within normal limits. Heart is enlarged. Pacemaker again noted on the left. IMPRESSION: No acute findings appreciated
--- NOTE | 2018-01-30 13:21 | Nephrology Progress Note ---
Assessment/Plan Problem List: (1) CKD (chronic kidney disease) (2) Cardiomyopathy (3) Anemia (4) Pacemaker (5) UTI (urinary tract infection) Assessment Renal failure- Likely CKD Anemia related to above others: 1. Acute systolic and diastolic CHF, LVEF at 35%, last nuclear stress test showed no ischemia and scar/myocardial infarction in the inferior wall. 2. Slight elevation of troponin not typical for ACS, most likely due to heart failure. 3. Dual-chamber pacemaker implantation, Medtr[employer], implanted in 2017, appears to be functioning normally. 4. Permanent atrial fibrillation, continue Pradaxa. 5. History of coronary artery disease, no prior hx of cardiac cath per patient. Plan Optimize cardiac status- avoid nephrotoxics- monitor renal parameters Kidney CÉSAR per orders Subjective ROS Limited/Unobtainable: No Constitutional: Reports: malaise Objective Objective Last 24 Hour Vital Signs Date Time Temp Pulse Resp B/P (MAP) Pulse Ox O2 Delivery O2 Flow Rate FiO2 01/30/18 12:00 98.0 63 21 118/58 97 Room Air 98.0 01/30/18 10:25 64 115/54 01/30/18 09:00 115/54 01/30/18 09:00 115/54 01/30/18 09:00 64 115/54 01/30/18 08:53 61 115/52 01/30/18 08:00 98.3 67 22 118/54 99 Room Air 98.3 01/30/18 05:02 126/63 01/30/18 04:00 98.4 61 16 126/51 99 Room Air 98.4 01/29/18 23:58 97.2 64 16 106/71 98 Room Air 97.2 01/29/18 22:49 120/63 01/29/18 22:48 63 120/63 01/29/18 20:11 97.3 63 17 117/60 100 Room Air 97.3 01/29/18 17:41 122/58 01/29/18 16:00 97.5 62 19 114/60 97 Room Air 97.5 Intake and Output 01/29/18 01/30/18 19:00 07:00 Intake Total 560 ml 120 ml Output Total 500 ml 300 ml Balance 60 ml -180 ml Intake Oral 560 ml 120 ml Output Urine Total 500 ml 300 ml # Voids 1 # Bowel Movements 1 1 Laboratory Tests 01/29/18 21:30: Urine Color Pale yellow, Urine Appearance Clear, Urine pH 5, Urine Specific [place] 1.010, Urine Protein Negative, Urine Glucose (UA) Negative, Urine Ketones Negative, Urine Occult Blood 2+H, Urine Nitrite Negative, Urine Bilirubin Negative, Urine Urobilinogen Normal, Urine Leukocyte Esterase 2+H, Urine RBC 5-10H, Urine WBC 2-4, Urine Squamous Epithelial Cells None, Urine Bacteria Few 01/30/18 05:25: White Blood Count 5.0, Red Blood Count 2.97L, Hemoglobin 9.2L, Hematocrit 29.0L , Mean Corpuscular Volume 98, Mean Corpuscular Hemoglobin 31.1H, Mean Corpuscular Hemoglobin Concent 31.9L, Red Cell Distribution Width 13.8, Platelet Count 154, Mean Platelet Volume 6.4L, Neutrophils (%) (Auto) 51.5, Lymphocytes (%) (Auto) 34.8, Monocytes (%) (Auto) 8.9, Eosinophils (%) (Auto) 4.3H, Basophils (%) (Auto) 0.5, Sodium Level 134L, Potassium Level 4.5, Chloride Level 104, Carbon Dioxide Level 25, Anion Gap 5, Blood Urea Nitrogen 36H, Creatinine 2.0H, Estimat Glomerular Filtration Rate , Glucose Level 103, Hemoglobin A1c 6.9H, Uric Acid 9.1H, Calcium Level 7.9L, Phosphorus Level 4.0, Magnesium Level 1.7L, Ferritin 43, Total Bilirubin 0.3, Gamma Glutamyl Transpeptidase 109H, Aspartate Amino Transf (AST/SGOT) 21, Alanine Aminotransferase (ALT/SGPT) 22, Alkaline Phosphatase 110, Troponin I 0.049, Pro- B-Type Natriuretic Peptide 50367R, Total Protein 6.1L, Albumin 2.5L, Globulin 3.6, Albumin/Globulin Ratio 0.7L, Triglycerides Level 27L, Cholesterol Level 94 , LDL Cholesterol 31, HDL Cholesterol 59, Cholesterol/HDL Ratio 1.6L, Vitamin B12 Level 427, Folate 17.6, Thyroid Stimulating Hormone (TSH) 2.810 Height (Feet): 5 Height (Inches): 5.00 Weight (Pounds): 120 General Appearance: no apparent distress Cardiovascular: normal rate Respiratory/Chest: lungs clear Objective no change SHARRON ORTA Jan 30, 2018 13:21
[2018-01-30] MEDS: Allopurinol 100mg Tab ORAL SCH (15:09)
[2018-01-30] MEDS: Ertapenem 0.5 GM in NS 55 ML IVPB SCH (16:07)
--- NOTE | 2018-01-30 19:31 | Pulmonology Progress Note ---
Assessment/Plan Problems: (1) Infection due to ESBL-producing Klebsiella pneumoniae (2) UTI (urinary tract infection) (3) Acute end-stage systolic heart failure (4) EF 30% (5) Severe protein-calorie malnutrition Assessment/Plan onabx afebrile, wbc normal check cultures symptomatic treatment dc planning Subjective ROS Limited/Unobtainable: No Allergies: Coded Allergies: No Known Allergies (Unverified , 09/27/15) Objective Last 24 Hour Vital Signs Date Time Temp Pulse Resp B/P (MAP) Pulse Ox O2 Delivery O2 Flow Rate FiO2 01/30/18 16:02 98.0 61 21 132/62 97 Room Air 98.0 01/30/18 15:09 125/72 01/30/18 15:09 62 125/72 01/30/18 12:00 98.0 63 21 118/58 97 Room Air 98.0 01/30/18 10:25 64 115/54 01/30/18 09:00 115/54 01/30/18 09:00 115/54 01/30/18 09:00 64 115/54 01/30/18 08:53 61 115/52 01/30/18 08:00 98.3 67 22 118/54 99 Room Air 98.3 01/30/18 05:02 126/63 01/30/18 04:00 98.4 61 16 126/51 99 Room Air 98.4 01/29/18 23:58 97.2 64 16 106/71 98 Room Air 97.2 01/29/18 22:49 120/63 01/29/18 22:48 63 120/63 01/29/18 20:11 97.3 63 17 117/60 100 Room Air 97.3 Intake and Output 01/29/18 01/30/18 19:00 07:00 Intake Total 560 ml 120 ml Output Total 500 ml 300 ml Balance 60 ml -180 ml Intake Oral 560 ml 120 ml Output Urine Total 500 ml 300 ml # Voids 1 # Bowel Movements 1 1 Objective General Appearance: cachetic Lines, tubes and drains: peripheral HEENT: normocephalic, atraumatic Neck: non-tender, normal alignment Respiratory/Chest: chest wall non-tender, lungs clear Cardiovascular/Chest: normal peripheral pulses, regular rhythm, regularly irregular Abdomen: normal bowel sounds, non tender, soft Extremities: normal range of motion, normal inspection Microbiology Date/Time Source Procedure Growth Status 01/28/18 18:00 Blood Blood Culture - Preliminary NO GROWTH AFTER 24 HOURS Resulted 01/28/18 17:55 Blood Blood Culture - Preliminary NO GROWTH AFTER 24 HOURS Resulted 01/28/18 19:55 Nasopharynx Influenza Types A,B Antigen (PRAVEEN) - Final Complete Laboratory Tests 01/29/18 21:30: Urine Color Pale yellow, Urine Appearance Clear, Urine pH 5, Urine Specific [place] 1.010, Urine Protein Negative, Urine Glucose (UA) Negative, Urine Ketones Negative, Urine Occult Blood 2+H, Urine Nitrite Negative, Urine Bilirubin Negative, Urine Urobilinogen Normal, Urine Leukocyte Esterase 2+H, Urine RBC 5-10H, Urine WBC 2-4, Urine Squamous Epithelial Cells None, Urine Bacteria Few 01/30/18 05:25: White Blood Count 5.0, Red Blood Count 2.97L, Hemoglobin 9.2L, Hematocrit 29.0L , Mean Corpuscular Volume 98, Mean Corpuscular Hemoglobin 31.1H, Mean Corpuscular Hemoglobin Concent 31.9L, Red Cell Distribution Width 13.8, Platelet Count 154, Mean Platelet Volume 6.4L, Neutrophils (%) (Auto) 51.5, Lymphocytes (%) (Auto) 34.8, Monocytes (%) (Auto) 8.9, Eosinophils (%) (Auto) 4.3H, Basophils (%) (Auto) 0.5, Sodium Level 134L, Potassium Level 4.5, Chloride Level 104, Carbon Dioxide Level 25, Anion Gap 5, Blood Urea Nitrogen 36H, Creatinine 2.0H, Estimat Glomerular Filtration Rate , Glucose Level 103, Hemoglobin A1c 6.9H, Uric Acid 9.1H, Calcium Level 7.9L, Phosphorus Level 4.0, Magnesium Level 1.7L, Ferritin 43, Total Bilirubin 0.3, Gamma Glutamyl Transpeptidase 109H, Aspartate Amino Transf (AST/SGOT) 21, Alanine Aminotransferase (ALT/SGPT) 22, Alkaline Phosphatase 110, Troponin I 0.049, Pro- B-Type Natriuretic Peptide 25068M, Total Protein 6.1L, Albumin 2.5L, Globulin 3.6, Albumin/Globulin Ratio 0.7L, Triglycerides Level 27L, Cholesterol Level 94 , LDL Cholesterol 31, HDL Cholesterol 59, Cholesterol/HDL Ratio 1.6L, Vitamin B12 Level 427, Folate 17.6, Thyroid Stimulating Hormone (TSH) 2.810 Current Medications Medications (Trade) Dose Ordered Sig/Soumya Route PRN Reason Start Time Stop Time Status Last Admin Dose Admin Acetaminophen (Tylenol) 650 mg Q4H PRN ORAL Mild Pain/Temp > 100.5 01/28/18 22:30 02/24/18 18:29 Allopurinol (Zyloprim) 100 mg DAILY ORAL 01/30/18 14:00 03/01/18 13:59 01/30/18 15:09 Atorvastatin Calcium (Lipitor) 40 mg BEDTIME ORAL 01/28/18 21:00 02/27/18 20:59 01/29/18 22:48 Carvedilol (Coreg) 12.5 mg EVERY 12 HOURS ORAL 01/28/18 21:00 02/24/18 20:59 01/29/18 22:48 Dabigatran (Pradaxa) 75 mg EVERY 12 HOURS ORAL 01/28/18 21:00 02/24/18 20:59 01/30/18 08:57 Donepezil HCl (Aricept) 5 mg DAILY ORAL 01/29/18 09:00 02/25/18 08:59 01/30/18 08:59 Ertapenem 0.5 gm/ Sodium Chloride 55 ml @ 110 mls/hr Q24H IVPB 01/29/18 14:00 02/02/18 13:59 01/30/18 16:07 Furosemide (Lasix) 20 mg DAILY ORAL 01/30/18 09:00 03/01/18 08:59 01/30/18 08:59 Hydralazine HCl (Apresoline) 10 mg Q8HR ORAL 01/29/18 22:00 02/24/18 19:59 01/30/18 15:09 Isosorbide Mononitrate (Imdur) 30 mg DAILY ORAL 01/29/18 09:00 02/24/18 19:59 01/29/18 09:46 Lisinopril (Zestril) 2.5 mg DAILY ORAL 01/29/18 09:00 02/26/18 08:59 01/29/18 09:46 Loperamide HCl (Imodium) 2 mg Q4H PRN ORAL Diarrhea 01/28/18 19:30 02/26/18 15:29 Pantoprazole (Protonix) 40 mg DAILY ORAL 01/29/18 09:00 02/25/18 08:59 01/30/18 08:58 Tamsulosin HCl (Flomax) 0.4 mg BEDTIME ORAL 01/28/18 21:00 02/24/18 20:59 01/29/18 22:48 Eileen Reyna MD Jan 30, 2018 19:31
[2018-01-30] MEDS: Tamsulosin 0.4mg cap ORAL SCH (20:55)
[2018-01-30] MEDS: Atorvastatin 20mg tab ORAL SCH (20:56)
[2018-01-30] MEDS ORDERED: NS 275ml ONE (21:14)
[2018-01-30] MEDS ORDERED: Tubing IV Secondary IV ONE (21:14)
--- NOTE | 2018-01-30 23:52 | Cardiology Progress Note ---
Assessment/Plan Assessment/Plan 1. Acute systolic and diastolic CHF, LVEF at 35%, BNP downtrending, low dose diuretics if OK with renal team. 2. Slight elevation of troponin not typical for ACS, most likely due to heart failure. Recent nuclear stress test has shown no myocardial wall ischemia and scar/myocardial infarction in the inferior wall. 3. Dual-chamber pacemaker implantation, [employer]tr[employer], implanted in 2017, appears to be functioning normally. 4. Permanent atrial fibrillation, continue Pradaxa. 5. History of coronary artery disease, no prior hx of cardiac cath per patient. Subjective Subjective No cardiac events. No chest pain or SOB at this time. Objective Last 24 Hour Vital Signs Date Time Temp Pulse Resp B/P (MAP) Pulse Ox O2 Delivery O2 Flow Rate FiO2 01/30/18 20:55 136/56 01/30/18 20:55 65 136/56 01/30/18 20:00 97.6 65 20 136/56 99 97.6 01/30/18 16:02 98.0 61 21 132/62 97 Room Air 98.0 01/30/18 15:09 125/72 01/30/18 15:09 62 125/72 01/30/18 12:00 98.0 63 21 118/58 97 Room Air 98.0 01/30/18 10:25 64 115/54 01/30/18 09:00 115/54 01/30/18 09:00 115/54 01/30/18 09:00 64 115/54 01/30/18 08:53 61 115/52 01/30/18 08:00 98.3 67 22 118/54 99 Room Air 98.3 01/30/18 05:02 126/63 01/30/18 04:00 98.4 61 16 126/51 99 Room Air 98.4 01/29/18 23:58 97.2 64 16 106/71 98 Room Air 97.2 Intake and Output 01/29/18 01/30/18 19:00 07:00 Intake Total 560 ml 120 ml Output Total 500 ml 300 ml Balance 60 ml -180 ml Intake Oral 560 ml 120 ml Output Urine Total 500 ml 300 ml # Voids 1 # Bowel Movements 1 1 2D Echo: EF 35%, Global HK, [place],elevated RAP,Mild AR/MR,Grade II LVDD,RVSP 41 mmHg Laboratory Tests Test 01/30/18 05:25 White Blood Count 5.0 K/UL (4.8-10.8) Red Blood Count 2.97 M/UL (4.70-6.10) L Hemoglobin 9.2 G/DL (14.2-18.0) L Hematocrit 29.0 % (42.0-52.0) L Mean Corpuscular Volume 98 FL (80-99) Mean Corpuscular Hemoglobin 31.1 PG (27.0-31.0) H Mean Corpuscular Hemoglobin Concent 31.9 G/DL (32.0-36.0) L Red Cell Distribution Width 13.8 % (11.6-14.8) Platelet Count 154 K/UL (150-450) Mean Platelet Volume 6.4 FL (6.5-10.1) L Neutrophils (%) (Auto) 51.5 % (45.0-75.0) Lymphocytes (%) (Auto) 34.8 % (20.0-45.0) Monocytes (%) (Auto) 8.9 % (1.0-10.0) Eosinophils (%) (Auto) 4.3 % (0.0-3.0) H Basophils (%) (Auto) 0.5 % (0.0-2.0) Sodium Level 134 MMOL/L (136-145) L Potassium Level 4.5 MMOL/L (3.5-5.1) Chloride Level 104 MMOL/L (98-107) Carbon Dioxide Level 25 MMOL/L (21-32) Anion Gap 5 mmol/L (5-15) Blood Urea Nitrogen 36 mg/dL (7-18) H Creatinine 2.0 MG/DL (0.55-1.30) H Estimat Glomerular Filtration Rate mL/min (>60) Glucose Level 103 MG/DL (74-106) Hemoglobin A1c 6.9 % (4.3-6.0) H Uric Acid 9.1 MG/DL (2.6-7.2) H Calcium Level 7.9 MG/DL (8.5-10.1) L Phosphorus Level 4.0 MG/DL (2.5-4.9) Magnesium Level 1.7 MG/DL (1.8-2.4) L Ferritin 43 NG/ML (8-388) Total Bilirubin 0.3 MG/DL (0.2-1.0) Gamma Glutamyl Transpeptidase 109 U/L (5-85) H Aspartate Amino Transf (AST/SGOT) 21 U/L (15-37) Alanine Aminotransferase (ALT/SGPT) 22 U/L (12-78) Alkaline Phosphatase 110 U/L (46-116) Troponin I 0.049 ng/mL (0.000-0.056) Pro-B-Type Natriuretic Peptide 13135 pg/mL (0-125) H Total Protein 6.1 G/DL (6.4-8.2) L Albumin 2.5 G/DL (3.4-5.0) L Globulin 3.6 g/dL Albumin/Globulin Ratio 0.7 (1.0-2.7) L Triglycerides Level 27 MG/DL (30-150) L Cholesterol Level 94 MG/DL (< 200) LDL Cholesterol 31 mg/dL (<100) HDL Cholesterol 59 MG/DL (40-60) Cholesterol/HDL Ratio 1.6 (3.3-4.4) L Vitamin B12 Level 427 PG/ML (193-986) Folate 17.6 NG/ML (8.6-58.9) Thyroid Stimulating Hormone (TSH) 2.810 uiU/mL (0.358-3.740) Microbiology Date/Time Source Procedure Growth Status 01/28/18 18:00 Blood Blood Culture - Preliminary NO GROWTH AFTER 24 HOURS Resulted 01/28/18 17:55 Blood Blood Culture - Preliminary NO GROWTH AFTER 24 HOURS Resulted 01/28/18 19:55 Nasopharynx Influenza Types A,B Antigen (PRAVEEN) - Final Complete Objective HEENT: Atraumatic and normocephalic. ENT, pupils are equal, round, and reactive to light and accommodation. There is periorbital edema. Conjunctival pallor. NECK: JVP is less than 5 cm. No carotid bruit. Carotid upstrokes 2+ bilaterally. CARDIOVASCULAR: Normal S1 and S2. Regular rate and rhythm. There is 2/6 mid systolic murmur at the left sternal border. PMI is at fourth intercostal space at the midclavicular line. LUNGS: Clear to auscultation bilaterally. ABDOMEN: Soft, nontender, and nondistended. No hepatosplenomegaly. Positive bowel sounds. EXTREMITIES: No evidence of edema, clubbing, or cyanosis. MALINDA FREY Jan 30, 2018 23:52
[2018-01-31] VITALS (8 sets, daily range): BP systolic 108–143; BP diastolic 51–69
[2018-01-31] MEDS: HydrALAZINE 10mg Tab ORAL SCH ×3 (05:53→21:31)
--- NOTE | 2018-01-31 08:15 | Diagnostic Imaging Report ---
APPROVED REPORT CPT Code: 81498 Vascular Symptoms Comments: SYNCOPE. CAROTID (BILATERAL) - Imaging reveals no significant plaque within the right and left extracranial carotid arteries. The Doppler spectral flow analysis is within normal limits throughout the extracranial carotid arteries bilaterally. VERTEBRAL- The vertebral arteries are within normal limits.
[2018-01-31 08:45] LABS: EOSINOPHILS % (AUTO) 3.7 % (0.0-3.0); HEMATOCRIT 31.9 % (42.0-52.0); HEMOGLOBIN 10.2 G/DL (14.2-18.0); LYMPHOCYTES % (AUTO) 29.1 % (20.0-45.0); MEAN CORPUSCULAR VOLUME 98 FL (80-99); MONOCYTES % (AUTO) 7.7 % (1.0-10.0); NEUTROPHILS % (AUTO) 58.6 % (45.0-75.0); PLATELET COUNT 166 K/UL (150-450); RED BLOOD COUNT 3.26 M/UL (4.70-6.10); RED CELL DISTRIBUTION WIDTH 13.8 % (11.6-14.8); WHITE BLOOD COUNT 5.3 K/UL (4.8-10.8)
[2018-01-31 09:00] LABS: ALANINE AMINOTRANSFERASE 45 U/L (12-78); ALBUMIN 2.8 G/DL (3.4-5.0); ALBUMIN/GLOBULIN RATIO 0.7 (1.0-2.7); ALKALINE PHOSPHATASE 147 U/L (46-116); ANION GAP 7 mmol/L (5-15); ASPARTATE AMINO TRANSFERASE 50 U/L (15-37); BILIRUBIN,TOTAL 0.3 MG/DL (0.2-1.0); BLOOD UREA NITROGEN 38 mg/dL (7-18); CALCIUM 8.2 MG/DL (8.5-10.1); CARBON DIOXIDE 23 MMOL/L (21-32); CHLORIDE 105 MMOL/L (98-107); CREATININE 2.1 MG/DL (0.55-1.30); POTASSIUM 4.5 MMOL/L (3.5-5.1); SODIUM 135 MMOL/L (136-145)
[2018-01-31] MEDS: Lisinopril 2.5mg tab ORAL SCH (09:00)
[2018-01-31] MEDS: Imdur 30mg tab ORAL SCH (09:00)
[2018-01-31] MEDS: Carvedilol 12.5mg tab ORAL SCH ×2 (09:00→21:31)
[2018-01-31] MEDS: Allopurinol 100mg Tab ORAL SCH (09:29)
[2018-01-31] MEDS: Donepezil 5mg Tab ORAL SCH (09:31)
--- NOTE | 2018-01-31 12:40 | Infectious Diseases Prog Note ---
Assessment/Plan Assessment/Plan ASSESSMENT: The patient is an 87-year-old male with, Fever, SP Probable urinary tract infection. influenza. Neg Rule out bacteremia. Hard of hearing. hx of syncopal episodes in the past. CAD, status post myocardial infarction in the past, status post pacemaker placement. Hypertension. Osteoarthritis. History of renal insufficiency PLAN: will continue the patient on ertapenem d# 4 / 10 d Monitor CBC. Monitor BMP. Monitor culture (blood) Subjective Constitutional: Denies: no symptoms, fever, chills, fatigue, anorexia, drenching sweats, other Allergies: Coded Allergies: No Known Allergies (Unverified , 09/27/15) Objective Vital Signs Last 24 Hour Vital Signs Date Time Temp Pulse Resp B/P (MAP) Pulse Ox O2 Delivery O2 Flow Rate FiO2 01/31/18 11:44 97.9 61 108/55 99 Room Air 97.9 01/31/18 09:26 60 108/51 01/31/18 09:00 108/51 01/31/18 09:00 108/51 01/31/18 09:00 60 108/51 01/31/18 08:00 97.3 63 110/56 99 Room Air 97.3 01/31/18 05:53 131/63 01/31/18 04:00 97.5 63 20 131/63 100 97.5 01/31/18 04:00 100 Room Air 01/31/18 00:00 98.3 62 20 120/69 100 98.3 01/31/18 00:00 100 Room Air 01/30/18 20:55 136/56 01/30/18 20:55 65 136/56 01/30/18 20:00 97.6 65 20 136/56 99 97.6 01/30/18 20:00 99 Room Air 01/30/18 16:02 98.0 61 21 132/62 97 Room Air 98.0 01/30/18 15:09 125/72 01/30/18 15:09 62 125/72 Height (Feet): 5 Height (Inches): 5.00 Weight (Pounds): 120 HEENT: anicteric Respiratory/Chest: normal breath sounds Cardiovascular: normal rate Abdomen: no organomegaly Microbiology Date/Time Source Procedure Growth Status 01/28/18 18:00 Blood Blood Culture - Preliminary NO GROWTH AFTER 48 HOURS Resulted 01/28/18 17:55 Blood Blood Culture - Preliminary NO GROWTH AFTER 48 HOURS Resulted 01/28/18 19:55 Nasopharynx Influenza Types A,B Antigen (PRAVEEN) - Final Complete Laboratory Tests Test 01/31/18 07:04 White Blood Count 5.3 K/UL (4.8-10.8) Red Blood Count 3.26 M/UL (4.70-6.10) L Hemoglobin 10.2 G/DL (14.2-18.0) L Hematocrit 31.9 % (42.0-52.0) L Mean Corpuscular Volume 98 FL (80-99) Mean Corpuscular Hemoglobin 31.4 PG (27.0-31.0) H Mean Corpuscular Hemoglobin Concent 32.1 G/DL (32.0-36.0) Red Cell Distribution Width 13.8 % (11.6-14.8) Platelet Count 166 K/UL (150-450) Mean Platelet Volume 6.0 FL (6.5-10.1) L Neutrophils (%) (Auto) 58.6 % (45.0-75.0) Lymphocytes (%) (Auto) 29.1 % (20.0-45.0) Monocytes (%) (Auto) 7.7 % (1.0-10.0) Eosinophils (%) (Auto) 3.7 % (0.0-3.0) H Basophils (%) (Auto) 1.0 % (0.0-2.0) Erythrocyte Sedimentation Rate 34 MM/HR (0-30) H Sodium Level 135 MMOL/L (136-145) L Potassium Level 4.5 MMOL/L (3.5-5.1) Chloride Level 105 MMOL/L (98-107) Carbon Dioxide Level 23 MMOL/L (21-32) Anion Gap 7 mmol/L (5-15) Blood Urea Nitrogen 38 mg/dL (7-18) H Creatinine 2.1 MG/DL (0.55-1.30) H Estimat Glomerular Filtration Rate mL/min (>60) Glucose Level 123 MG/DL (74-106) H Calcium Level 8.2 MG/DL (8.5-10.1) L Phosphorus Level 4.0 MG/DL (2.5-4.9) Magnesium Level 1.8 MG/DL (1.8-2.4) Total Bilirubin 0.3 MG/DL (0.2-1.0) Aspartate Amino Transf (AST/SGOT) 50 U/L (15-37) H Alanine Aminotransferase (ALT/SGPT) 45 U/L (12-78) Alkaline Phosphatase 147 U/L (46-116) H C-Reactive Protein, Quantitative 0.8 mg/dL (0.00-0.90) Total Protein 6.8 G/DL (6.4-8.2) Albumin 2.8 G/DL (3.4-5.0) L Globulin 4.0 g/dL Albumin/Globulin Ratio 0.7 (1.0-2.7) L Current Medications Medications (Trade) Dose Ordered Sig/Soumya Route PRN Reason Start Time Stop Time Status Last Admin Dose Admin Acetaminophen (Tylenol) 650 mg Q4H PRN ORAL Mild Pain/Temp > 100.5 01/28/18 22:30 02/24/18 18:29 Allopurinol (Zyloprim) 100 mg DAILY ORAL 01/30/18 14:00 03/01/18 13:59 01/31/18 09:29 Atorvastatin Calcium (Lipitor) 40 mg BEDTIME ORAL 01/28/18 21:00 02/27/18 20:59 01/30/18 20:56 Carvedilol (Coreg) 12.5 mg EVERY 12 HOURS ORAL 01/28/18 21:00 02/24/18 20:59 01/30/18 20:55 Dabigatran (Pradaxa) 75 mg EVERY 12 HOURS ORAL 01/28/18 21:00 02/24/18 20:59 01/31/18 09:29 Donepezil HCl (Aricept) 5 mg DAILY ORAL 01/29/18 09:00 02/25/18 08:59 01/31/18 09:31 Ertapenem 0.5 gm/ Sodium Chloride 55 ml @ 110 mls/hr Q24H IVPB 01/29/18 14:00 02/02/18 13:59 01/30/18 16:07 Furosemide (Lasix) 20 mg DAILY ORAL 01/30/18 09:00 03/01/18 08:59 01/31/18 09:29 Hydralazine HCl (Apresoline) 10 mg Q8HR ORAL 01/29/18 22:00 02/24/18 19:59 01/31/18 05:53 Isosorbide Mononitrate (Imdur) 30 mg DAILY ORAL 01/29/18 09:00 02/24/18 19:59 01/29/18 09:46 Lisinopril (Zestril) 2.5 mg DAILY ORAL 01/29/18 09:00 02/26/18 08:59 01/29/18 09:46 Loperamide HCl (Imodium) 2 mg Q4H PRN ORAL Diarrhea 01/28/18 19:30 02/26/18 15:29 Pantoprazole (Protonix) 40 mg DAILY ORAL 01/29/18 09:00 02/25/18 08:59 01/31/18 09:29 Tamsulosin HCl (Flomax) 0.4 mg BEDTIME ORAL 01/28/18 21:00 02/24/18 20:59 01/30/18 20:55 Toni Rios MD Jan 31, 2018 12:40
--- NOTE | 2018-01-31 13:46 | Nephrology Progress Note ---
Assessment/Plan Problem List: (1) CKD (chronic kidney disease) (2) Cardiomyopathy (3) Anemia (4) Pacemaker (5) UTI (urinary tract infection) Assessment Renal failure- Likely CKD Anemia related to above others: 1. Acute systolic and diastolic CHF, LVEF at 35%, last nuclear stress test showed no ischemia and scar/myocardial infarction in the inferior wall. 2. Slight elevation of troponin not typical for ACS, most likely due to heart failure. 3. Dual-chamber pacemaker implantation, [employer]tronic, implanted in 2017, appears to be functioning normally. 4. Permanent atrial fibrillation, continue Pradaxa. 5. History of coronary artery disease, no prior hx of cardiac cath per patient. Plan Optimize cardiac status- avoid nephrotoxics- monitor renal parameters Kidney CÉSAR pending per orders Subjective ROS Limited/Unobtainable: No Constitutional: Reports: malaise Objective Objective Last 24 Hour Vital Signs Date Time Temp Pulse Resp B/P (MAP) Pulse Ox O2 Delivery O2 Flow Rate FiO2 01/31/18 11:44 97.9 61 108/55 99 Room Air 97.9 01/31/18 09:26 60 108/51 01/31/18 09:00 108/51 01/31/18 09:00 108/51 01/31/18 09:00 60 108/51 01/31/18 08:00 97.3 63 110/56 99 Room Air 97.3 01/31/18 05:53 131/63 01/31/18 04:00 97.5 63 20 131/63 100 97.5 01/31/18 04:00 100 Room Air 01/31/18 00:00 98.3 62 20 120/69 100 98.3 01/31/18 00:00 100 Room Air 01/30/18 20:55 136/56 01/30/18 20:55 65 136/56 01/30/18 20:00 97.6 65 20 136/56 99 97.6 01/30/18 20:00 99 Room Air 01/30/18 16:02 98.0 61 21 132/62 97 Room Air 98.0 01/30/18 15:09 125/72 01/30/18 15:09 62 125/72 Intake and Output 01/30/18 01/31/18 19:00 07:00 Intake Total 1015 ml Output Total 400 ml 1000 ml Balance 615 ml -1000 ml Intake Oral 960 ml IV Total 55 ml Output Urine Total 400 ml 1000 ml Laboratory Tests 01/31/18 07:04: White Blood Count 5.3, Red Blood Count 3.26L, Hemoglobin 10.2L, Hematocrit 31.9L , Mean Corpuscular Volume 98, Mean Corpuscular Hemoglobin 31.4H, Mean Corpuscular Hemoglobin Concent 32.1, Red Cell Distribution Width 13.8, Platelet Count 166, Mean Platelet Volume 6.0L, Neutrophils (%) (Auto) 58.6, Lymphocytes ( %) (Auto) 29.1, Monocytes (%) (Auto) 7.7, Eosinophils (%) (Auto) 3.7H, Basophils (%) (Auto) 1.0, Erythrocyte Sedimentation Rate 34H, Sodium Level 135L , Potassium Level 4.5, Chloride Level 105, Carbon Dioxide Level 23, Anion Gap 7 , Blood Urea Nitrogen 38H, Creatinine 2.1H, Estimat Glomerular Filtration Rate , Glucose Level 123H, Calcium Level 8.2L, Phosphorus Level 4.0, Magnesium Level 1.8, Total Bilirubin 0.3, Aspartate Amino Transf (AST/SGOT) 50H, Alanine Aminotransferase (ALT/SGPT) 45, Alkaline Phosphatase 147H, C-Reactive Protein, Quantitative 0.8, Total Protein 6.8, Albumin 2.8L, Globulin 4.0, Albumin/ Globulin Ratio 0.7L Height (Feet): 5 Height (Inches): 5.00 Weight (Pounds): 120 General Appearance: no apparent distress Objective no change SHARRON ORTA Jan 31, 2018 13:46
[2018-01-31] MEDS: Ertapenem 0.5 GM in NS 55 ML IVPB SCH (15:27)
--- NOTE | 2018-01-31 16:28 | Diagnostic Imaging Report ---
Indication: Abnormal renal function Technique: US Renal Comp Comparison: None Findings: Right kidney measures 9.2 cm in length. Left kidney measures 9.6 cm in length. Both kidneys demonstrate normal parenchymal echogenicity. Small simple appearing renal cysts are seen bilaterally. There is no evidence of hydronephrosis or sonographically appreciable renal stone. Imaged portions of the liver and IVC grossly unremarkable. Bladder is unremarkable in appearance. Bilateral ureteral jets seen. IMPRESSION: No evidence of hydronephrosis or sonographically appreciable renal stones. Renal parenchymal echogenicity appears within normal limits bilaterally. Small bilateral renal cysts. Bladder unremarkable. Bilateral ureteral jets seen.
--- NOTE | 2018-01-31 16:52 | Pulmonology Progress Note ---
Assessment/Plan Problems: (1) Infection due to ESBL-producing Klebsiella pneumoniae (2) UTI (urinary tract infection) (3) Acute end-stage systolic heart failure (4) EF 30% (5) Severe protein-calorie malnutrition Assessment/Plan on iv abx afebrile, wbc normal check ESR, CRP check cultures symptomatic treatment dc planning soon Subjective ROS Limited/Unobtainable: No Constitutional: Reports: no symptoms HEENT: Repors: no symptoms Allergies: Coded Allergies: No Known Allergies (Unverified , 09/27/15) Objective Last 24 Hour Vital Signs Date Time Temp Pulse Resp B/P (MAP) Pulse Ox O2 Delivery O2 Flow Rate FiO2 01/31/18 16:00 97.2 69 18 143/65 100 Room Air 97.2 01/31/18 15:03 122/54 01/31/18 14:56 61 122/54 01/31/18 11:44 97.9 61 108/55 99 Room Air 97.9 01/31/18 09:26 60 108/51 01/31/18 09:00 108/51 01/31/18 09:00 108/51 01/31/18 09:00 60 108/51 01/31/18 08:00 97.3 63 110/56 99 Room Air 97.3 01/31/18 05:53 131/63 01/31/18 04:00 97.5 63 20 131/63 100 97.5 01/31/18 04:00 100 Room Air 01/31/18 00:00 98.3 62 20 120/69 100 98.3 01/31/18 00:00 100 Room Air 01/30/18 20:55 136/56 01/30/18 20:55 65 136/56 01/30/18 20:00 97.6 65 20 136/56 99 97.6 01/30/18 20:00 99 Room Air Intake and Output 01/30/18 01/31/18 19:00 07:00 Intake Total 1015 ml Output Total 400 ml 1000 ml Balance 615 ml -1000 ml Intake Oral 960 ml IV Total 55 ml Output Urine Total 400 ml 1000 ml Objective General Appearance: cachetic Lines, tubes and drains: peripheral HEENT: normocephalic, atraumatic Neck: non-tender, normal alignment Respiratory/Chest: chest wall non-tender, lungs clear Cardiovascular/Chest: normal peripheral pulses, regular rhythm, regularly irregular Abdomen: normal bowel sounds, non tender, soft Extremities: normal range of motion, normal inspection Microbiology Date/Time Source Procedure Growth Status 01/28/18 18:00 Blood Blood Culture - Preliminary NO GROWTH AFTER 48 HOURS Resulted 01/28/18 17:55 Blood Blood Culture - Preliminary NO GROWTH AFTER 48 HOURS Resulted 01/28/18 19:55 Nasopharynx Influenza Types A,B Antigen (PRAVEEN) - Final Complete Laboratory Tests 01/31/18 07:04: White Blood Count 5.3, Red Blood Count 3.26L, Hemoglobin 10.2L, Hematocrit 31.9L , Mean Corpuscular Volume 98, Mean Corpuscular Hemoglobin 31.4H, Mean Corpuscular Hemoglobin Concent 32.1, Red Cell Distribution Width 13.8, Platelet Count 166, Mean Platelet Volume 6.0L, Neutrophils (%) (Auto) 58.6, Lymphocytes ( %) (Auto) 29.1, Monocytes (%) (Auto) 7.7, Eosinophils (%) (Auto) 3.7H, Basophils (%) (Auto) 1.0, Erythrocyte Sedimentation Rate 34H, Sodium Level 135L , Potassium Level 4.5, Chloride Level 105, Carbon Dioxide Level 23, Anion Gap 7 , Blood Urea Nitrogen 38H, Creatinine 2.1H, Estimat Glomerular Filtration Rate , Glucose Level 123H, Calcium Level 8.2L, Phosphorus Level 4.0, Magnesium Level 1.8, Total Bilirubin 0.3, Aspartate Amino Transf (AST/SGOT) 50H, Alanine Aminotransferase (ALT/SGPT) 45, Alkaline Phosphatase 147H, C-Reactive Protein, Quantitative 0.8, Total Protein 6.8, Albumin 2.8L, Globulin 4.0, Albumin/ Globulin Ratio 0.7L Current Medications Medications (Trade) Dose Ordered Sig/Soumya Route PRN Reason Start Time Stop Time Status Last Admin Dose Admin Acetaminophen (Tylenol) 650 mg Q4H PRN ORAL Mild Pain/Temp > 100.5 01/28/18 22:30 02/24/18 18:29 Allopurinol (Zyloprim) 100 mg DAILY ORAL 01/30/18 14:00 03/01/18 13:59 01/31/18 09:29 Atorvastatin Calcium (Lipitor) 40 mg BEDTIME ORAL 01/28/18 21:00 02/27/18 20:59 01/30/18 20:56 Carvedilol (Coreg) 12.5 mg EVERY 12 HOURS ORAL 01/28/18 21:00 02/24/18 20:59 01/30/18 20:55 Dabigatran (Pradaxa) 75 mg EVERY 12 HOURS ORAL 01/28/18 21:00 02/24/18 20:59 01/31/18 09:29 Donepezil HCl (Aricept) 5 mg DAILY ORAL 01/29/18 09:00 02/25/18 08:59 01/31/18 09:31 Ertapenem 0.5 gm/ Sodium Chloride 55 ml @ 110 mls/hr Q24H IVPB 01/29/18 14:00 02/02/18 13:59 01/31/18 15:27 Furosemide (Lasix) 20 mg DAILY ORAL 01/30/18 09:00 03/01/18 08:59 01/31/18 09:29 Hydralazine HCl (Apresoline) 10 mg Q8HR ORAL 01/29/18 22:00 02/24/18 19:59 01/31/18 15:03 Isosorbide Mononitrate (Imdur) 30 mg DAILY ORAL 01/29/18 09:00 02/24/18 19:59 01/29/18 09:46 Lisinopril (Zestril) 2.5 mg DAILY ORAL 01/29/18 09:00 02/26/18 08:59 01/29/18 09:46 Loperamide HCl (Imodium) 2 mg Q4H PRN ORAL Diarrhea 01/28/18 19:30 02/26/18 15:29 Pantoprazole (Protonix) 40 mg DAILY ORAL 01/29/18 09:00 02/25/18 08:59 01/31/18 09:29 Tamsulosin HCl (Flomax) 0.4 mg BEDTIME ORAL 01/28/18 21:00 02/24/18 20:59 01/30/18 20:55 Eileen Reyna MD Jan 31, 2018 16:52
[2018-01-31] MEDS: Tamsulosin 0.4mg cap ORAL SCH (21:31)
[2018-01-31] MEDS: Atorvastatin 20mg tab ORAL SCH (21:31)
--- NOTE | 2018-01-31 23:57 | Cardiology Progress Note ---
Assessment/Plan Assessment/Plan 1. Acute systolic and diastolic CHF, LVEF at 35%, check BNP periodically. 2. Slight elevation of troponin not typical for ACS, most likely due to heart failure. Recent nuclear stress test has shown no myocardial wall ischemia and scar/myocardial infarction in the inferior wall. 3. Dual-chamber pacemaker implantation, [employer], implanted in 2017, appears to be functioning normally. 4. Permanent atrial fibrillation, continue Pradaxa. 5. History of coronary artery disease, no prior hx of cardiac cath per patient. Subjective Subjective No cardiac events. Atrial flutter. Objective Last 24 Hour Vital Signs Date Time Temp Pulse Resp B/P (MAP) Pulse Ox O2 Delivery O2 Flow Rate FiO2 01/31/18 21:31 128/59 01/31/18 21:31 61 128/59 01/31/18 20:00 97.9 61 18 128/59 99 97.9 01/31/18 16:00 97.2 69 18 143/65 100 Room Air 97.2 01/31/18 15:03 122/54 01/31/18 14:56 61 122/54 01/31/18 11:44 97.9 61 108/55 99 Room Air 97.9 01/31/18 09:26 60 108/51 01/31/18 09:00 108/51 01/31/18 09:00 108/51 01/31/18 09:00 60 108/51 01/31/18 08:00 97.3 63 110/56 99 Room Air 97.3 01/31/18 05:53 131/63 01/31/18 04:00 97.5 63 20 131/63 100 97.5 01/31/18 04:00 100 Room Air 01/31/18 00:00 98.3 62 20 120/69 100 98.3 01/31/18 00:00 100 Room Air Intake and Output 01/30/18 01/31/18 19:00 07:00 Intake Total 1015 ml Output Total 400 ml 1000 ml Balance 615 ml -1000 ml Intake Oral 960 ml IV Total 55 ml Output Urine Total 400 ml 1000 ml 2D Echo: EF 35%, Global HK, [place],elevated RAP,Mild AR/MR,Grade II LVDD,RVSP 41 mmHg Laboratory Tests Test 01/31/18 07:04 White Blood Count 5.3 K/UL (4.8-10.8) Red Blood Count 3.26 M/UL (4.70-6.10) L Hemoglobin 10.2 G/DL (14.2-18.0) L Hematocrit 31.9 % (42.0-52.0) L Mean Corpuscular Volume 98 FL (80-99) Mean Corpuscular Hemoglobin 31.4 PG (27.0-31.0) H Mean Corpuscular Hemoglobin Concent 32.1 G/DL (32.0-36.0) Red Cell Distribution Width 13.8 % (11.6-14.8) Platelet Count 166 K/UL (150-450) Mean Platelet Volume 6.0 FL (6.5-10.1) L Neutrophils (%) (Auto) 58.6 % (45.0-75.0) Lymphocytes (%) (Auto) 29.1 % (20.0-45.0) Monocytes (%) (Auto) 7.7 % (1.0-10.0) Eosinophils (%) (Auto) 3.7 % (0.0-3.0) H Basophils (%) (Auto) 1.0 % (0.0-2.0) Erythrocyte Sedimentation Rate 34 MM/HR (0-30) H Sodium Level 135 MMOL/L (136-145) L Potassium Level 4.5 MMOL/L (3.5-5.1) Chloride Level 105 MMOL/L (98-107) Carbon Dioxide Level 23 MMOL/L (21-32) Anion Gap 7 mmol/L (5-15) Blood Urea Nitrogen 38 mg/dL (7-18) H Creatinine 2.1 MG/DL (0.55-1.30) H Estimat Glomerular Filtration Rate mL/min (>60) Glucose Level 123 MG/DL (74-106) H Calcium Level 8.2 MG/DL (8.5-10.1) L Phosphorus Level 4.0 MG/DL (2.5-4.9) Magnesium Level 1.8 MG/DL (1.8-2.4) Total Bilirubin 0.3 MG/DL (0.2-1.0) Aspartate Amino Transf (AST/SGOT) 50 U/L (15-37) H Alanine Aminotransferase (ALT/SGPT) 45 U/L (12-78) Alkaline Phosphatase 147 U/L (46-116) H C-Reactive Protein, Quantitative 0.8 mg/dL (0.00-0.90) Total Protein 6.8 G/DL (6.4-8.2) Albumin 2.8 G/DL (3.4-5.0) L Globulin 4.0 g/dL Albumin/Globulin Ratio 0.7 (1.0-2.7) L Objective HEENT: Atraumatic and normocephalic. ENT, pupils are equal, round, and reactive to light and accommodation. There is periorbital edema. Conjunctival pallor. NECK: JVP is less than 5 cm. No carotid bruit. Carotid upstrokes 2+ bilaterally. CARDIOVASCULAR: Normal S1 and S2. Regular rate and rhythm. There is 2/6 mid systolic murmur at the left sternal border. PMI is at fourth intercostal space at the midclavicular line. LUNGS: Clear to auscultation bilaterally. ABDOMEN: Soft, nontender, and nondistended. No hepatosplenomegaly. Positive bowel sounds. EXTREMITIES: No evidence of edema, clubbing, or cyanosis. MALINDA FREY Jan 31, 2018 23:57
[2018-02-01] VITALS: BP 120/92
[2018-02-01 04:00] VITALS: BP 125/89
[2018-02-01] MEDS: HydrALAZINE 10mg Tab ORAL SCH ×3 (06:10→22:00)
[2018-02-01 07:19] LABS: BASOPHILS % (AUTO) 0.8 % (0.0-2.0); EOSINOPHILS % (AUTO) 3.1 % (0.0-3.0); HEMATOCRIT 30.3 % (42.0-52.0); HEMOGLOBIN 9.8 G/DL (14.2-18.0); LYMPHOCYTES % (AUTO) 32.6 % (20.0-45.0); MEAN CORPUSCULAR VOLUME 97 FL (80-99); MONOCYTES % (AUTO) 8.7 % (1.0-10.0); NEUTROPHILS % (AUTO) 54.8 % (45.0-75.0); PLATELET COUNT 158 K/UL (150-450); RED BLOOD COUNT 3.11 M/UL (4.70-6.10); WHITE BLOOD COUNT 5.6 K/UL (4.8-10.8)
[2018-02-01 07:31] LABS: ALANINE AMINOTRANSFERASE 61 U/L (12-78); ALBUMIN 2.7 G/DL (3.4-5.0); ALBUMIN/GLOBULIN RATIO 0.7 (1.0-2.7); ALKALINE PHOSPHATASE 154 U/L (46-116); ANION GAP 7 mmol/L (5-15); ASPARTATE AMINO TRANSFERASE 64 U/L (15-37); BILIRUBIN,TOTAL 0.3 MG/DL (0.2-1.0); BLOOD UREA NITROGEN 46 mg/dL (7-18); CALCIUM 7.9 MG/DL (8.5-10.1); CARBON DIOXIDE 24 MMOL/L (21-32); CHLORIDE 105 MMOL/L (98-107); CREATININE 2.5 MG/DL (0.55-1.30); PHOSPHORUS 4.2 MG/DL (2.5-4.9); POTASSIUM 4.6 MMOL/L (3.5-5.1); SODIUM 136 MMOL/L (136-145)
[2018-02-01 08:00] VITALS: BP 146/60
[2018-02-01] MEDS: Donepezil 5mg Tab ORAL SCH (08:22)
[2018-02-01] MEDS: Allopurinol 100mg Tab ORAL SCH (08:22)
[2018-02-01] MEDS: Carvedilol 12.5mg tab ORAL SCH ×2 (08:24→21:00)
[2018-02-01] MEDS: Imdur 30mg tab ORAL SCH (08:25)
[2018-02-01] MEDS: Lisinopril 2.5mg tab ORAL SCH (08:25)
[2018-02-01 12:00] VITALS: BP 142/63
[2018-02-01] MEDS: Ertapenem 0.5 GM in NS 55 ML IVPB SCH (14:18)
--- NOTE | 2018-02-01 15:49 | Nephrology Progress Note ---
Assessment/Plan Problem List: (1) CKD (chronic kidney disease) (2) Cardiomyopathy (3) Anemia (4) Pacemaker (5) UTI (urinary tract infection) Assessment Renal failure- Likely CKD Cr taj 2.5 Anemia related to above others: 1. Acute systolic and diastolic CHF, LVEF at 35%, last nuclear stress test showed no ischemia and scar/myocardial infarction in the inferior wall. 2. Slight elevation of troponin not typical for ACS, most likely due to heart failure. 3. Dual-chamber pacemaker implantation, [employer], implanted in 2017, appears to be functioning normally. 4. Permanent atrial fibrillation, continue Pradaxa. 5. History of coronary artery disease, no prior hx of cardiac cath per patient. Plan Stop Zestril Optimize cardiac status- avoid nephrotoxics- monitor renal parameters Kidney CÉSAR Unremarkable per orders Subjective ROS Limited/Unobtainable: No Constitutional: Reports: malaise Objective Objective Last 24 Hour Vital Signs Date Time Temp Pulse Resp B/P (MAP) Pulse Ox O2 Delivery O2 Flow Rate FiO2 02/01/18 14:00 108/53 02/01/18 12:00 98.0 66 18 142/63 97 Room Air 98.0 02/01/18 08:25 146/60 02/01/18 08:25 146/60 02/01/18 08:24 62 146/60 02/01/18 08:00 97.9 68 18 146/60 98 Room Air 97.9 02/01/18 06:10 125/89 02/01/18 04:00 98.6 67 18 125/89 100 98.6 02/01/18 00:00 98.6 74 18 120/92 96 98.6 01/31/18 21:31 128/59 01/31/18 21:31 61 128/59 01/31/18 20:00 97.9 61 18 128/59 99 97.9 01/31/18 16:00 97.2 69 18 143/65 100 Room Air 97.2 Intake and Output 01/31/18 02/01/18 19:00 07:00 Intake Total 505 ml 300 ml Output Total 500 ml 650 ml Balance 5 ml -350 ml Intake Oral 450 ml 300 ml IV Total 55 ml Output Urine Total 500 ml 650 ml # Voids 100 # Bowel Movements 1 Laboratory Tests 02/01/18 05:35: White Blood Count 5.6, Red Blood Count 3.11L, Hemoglobin 9.8L, Hematocrit 30.3L , Mean Corpuscular Volume 97, Mean Corpuscular Hemoglobin 31.4H, Mean Corpuscular Hemoglobin Concent 32.2, Red Cell Distribution Width 14.0, Platelet Count 158, Mean Platelet Volume 6.1L, Neutrophils (%) (Auto) 54.8, Lymphocytes ( %) (Auto) 32.6, Monocytes (%) (Auto) 8.7, Eosinophils (%) (Auto) 3.1H, Basophils (%) (Auto) 0.8, Erythrocyte Sedimentation Rate 37H, Sodium Level 136, Potassium Level 4.6, Chloride Level 105, Carbon Dioxide Level 24, Anion Gap 7, Blood Urea Nitrogen 46H, Creatinine 2.5H, Estimat Glomerular Filtration Rate , Glucose Level 95, Calcium Level 7.9L, Phosphorus Level 4.2, Magnesium Level 1.9 , Total Bilirubin 0.3, Aspartate Amino Transf (AST/SGOT) 64H, Alanine Aminotransferase (ALT/SGPT) 61, Alkaline Phosphatase 154H, C-Reactive Protein, Quantitative 1.0H, Total Protein 6.5, Albumin 2.7L, Globulin 3.8, Albumin/ Globulin Ratio 0.7L Height (Feet): 5 Height (Inches): 5.00 Weight (Pounds): 120 General Appearance: no apparent distress Objective no change SHARRON ORTA Feb 01, 2018 15:49
[2018-02-01 16:00] VITALS: BP 115/55
--- NOTE | 2018-02-01 16:29 | Pulmonology Progress Note ---
Assessment/Plan Problems: (1) Infection due to ESBL-producing Klebsiella pneumoniae (2) UTI (urinary tract infection) (3) Acute end-stage systolic heart failure (4) EF 30% (5) ATN (acute tubular necrosis) (6) Severe protein-calorie malnutrition Assessment/Plan creatinine rising, stop lasix for now, check electrolytes. on iv abx afebrile, wbc normal check ESR, CRP check cultures symptomatic treatment Subjective ROS Limited/Unobtainable: No Constitutional: Reports: no symptoms HEENT: Repors: no symptoms Respiratory: Reports: no symptoms Allergies: Coded Allergies: No Known Allergies (Unverified , 09/27/15) Objective Last 24 Hour Vital Signs Date Time Temp Pulse Resp B/P (MAP) Pulse Ox O2 Delivery O2 Flow Rate FiO2 02/01/18 14:00 108/53 02/01/18 12:00 98.0 66 18 142/63 97 Room Air 98.0 02/01/18 08:25 146/60 02/01/18 08:25 146/60 02/01/18 08:24 62 146/60 02/01/18 08:00 97.9 68 18 146/60 98 Room Air 97.9 02/01/18 06:10 125/89 02/01/18 04:00 98.6 67 18 125/89 100 98.6 02/01/18 00:00 98.6 74 18 120/92 96 98.6 01/31/18 21:31 128/59 01/31/18 21:31 61 128/59 01/31/18 20:00 97.9 61 18 128/59 99 97.9 Intake and Output 01/31/18 02/01/18 19:00 07:00 Intake Total 505 ml 300 ml Output Total 500 ml 650 ml Balance 5 ml -350 ml Intake Oral 450 ml 300 ml IV Total 55 ml Output Urine Total 500 ml 650 ml # Voids 100 # Bowel Movements 1 Objective General Appearance: cachetic Lines, tubes and drains: peripheral HEENT: normocephalic, atraumatic Neck: non-tender, normal alignment Respiratory/Chest: chest wall non-tender, lungs clear Cardiovascular/Chest: normal peripheral pulses, regular rhythm, regularly irregular Abdomen: normal bowel sounds, non tender, soft Extremities: normal range of motion, normal inspection Laboratory Tests 02/01/18 05:35: White Blood Count 5.6, Red Blood Count 3.11L, Hemoglobin 9.8L, Hematocrit 30.3L , Mean Corpuscular Volume 97, Mean Corpuscular Hemoglobin 31.4H, Mean Corpuscular Hemoglobin Concent 32.2, Red Cell Distribution Width 14.0, Platelet Count 158, Mean Platelet Volume 6.1L, Neutrophils (%) (Auto) 54.8, Lymphocytes ( %) (Auto) 32.6, Monocytes (%) (Auto) 8.7, Eosinophils (%) (Auto) 3.1H, Basophils (%) (Auto) 0.8, Erythrocyte Sedimentation Rate 37H, Sodium Level 136, Potassium Level 4.6, Chloride Level 105, Carbon Dioxide Level 24, Anion Gap 7, Blood Urea Nitrogen 46H, Creatinine 2.5H, Estimat Glomerular Filtration Rate , Glucose Level 95, Calcium Level 7.9L, Phosphorus Level 4.2, Magnesium Level 1.9 , Total Bilirubin 0.3, Aspartate Amino Transf (AST/SGOT) 64H, Alanine Aminotransferase (ALT/SGPT) 61, Alkaline Phosphatase 154H, C-Reactive Protein, Quantitative 1.0H, Total Protein 6.5, Albumin 2.7L, Globulin 3.8, Albumin/ Globulin Ratio 0.7L Current Medications Medications (Trade) Dose Ordered Sig/Soumya Route PRN Reason Start Time Stop Time Status Last Admin Dose Admin Acetaminophen (Tylenol) 650 mg Q4H PRN ORAL Mild Pain/Temp > 100.5 01/28/18 22:30 02/24/18 18:29 Allopurinol (Zyloprim) 100 mg DAILY ORAL 01/30/18 14:00 03/01/18 13:59 02/01/18 08:22 Atorvastatin Calcium (Lipitor) 40 mg BEDTIME ORAL 01/28/18 21:00 02/27/18 20:59 01/31/18 21:31 Carvedilol (Coreg) 12.5 mg EVERY 12 HOURS ORAL 01/28/18 21:00 02/24/18 20:59 02/01/18 08:24 Dabigatran (Pradaxa) 75 mg EVERY 12 HOURS ORAL 01/28/18 21:00 02/24/18 20:59 02/01/18 08:22 Donepezil HCl (Aricept) 5 mg DAILY ORAL 01/29/18 09:00 02/25/18 08:59 02/01/18 08:22 Ertapenem 0.5 gm/ Sodium Chloride 55 ml @ 110 mls/hr Q24H IVPB 01/29/18 14:00 02/06/18 23:59 02/01/18 14:18 Furosemide (Lasix) 20 mg DAILY ORAL 01/30/18 09:00 03/01/18 08:59 02/01/18 08:23 Hydralazine HCl (Apresoline) 20 mg Q8HR ORAL 02/01/18 22:00 02/24/18 19:59 Isosorbide Mononitrate (Imdur) 30 mg DAILY ORAL 01/29/18 09:00 02/24/18 19:59 02/01/18 08:25 Loperamide HCl (Imodium) 2 mg Q4H PRN ORAL Diarrhea 01/28/18 19:30 02/26/18 15:29 Pantoprazole (Protonix) 40 mg DAILY ORAL 01/29/18 09:00 02/25/18 08:59 02/01/18 08:23 Tamsulosin HCl (Flomax) 0.4 mg BEDTIME ORAL 01/28/18 21:00 02/24/18 20:59 01/31/18 21:31 Eileen Reyna MD Feb 01, 2018 16:29
--- NOTE | 2018-02-01 17:19 | Infectious Diseases Prog Note ---
Assessment/Plan Assessment/Plan ASSESSMENT: The patient is an 87-year-old male with, Fever, SP Probable urinary tract infection UCx ESBL E. Coli influenza. Neg Hard of hearing. hx of syncopal episodes in the past. CAD, status post myocardial infarction in the past, status post pacemaker placement. Hypertension. Osteoarthritis. History of renal insufficiency PLAN: will continue the patient on ertapenem d# 5 / 10 d Monitor CBC. Monitor BMP. Monitor culture (blood) Subjective Constitutional: Denies: no symptoms, fever, chills, fatigue, anorexia, drenching sweats, other Allergies: Coded Allergies: No Known Allergies (Unverified , 09/27/15) Objective Vital Signs Last 24 Hour Vital Signs Date Time Temp Pulse Resp B/P (MAP) Pulse Ox O2 Delivery O2 Flow Rate FiO2 02/01/18 14:00 108/53 02/01/18 12:00 98.0 66 18 142/63 97 Room Air 98.0 02/01/18 08:25 146/60 02/01/18 08:25 146/60 02/01/18 08:24 62 146/60 02/01/18 08:00 97.9 68 18 146/60 98 Room Air 97.9 02/01/18 06:10 125/89 02/01/18 04:00 98.6 67 18 125/89 100 98.6 02/01/18 00:00 98.6 74 18 120/92 96 98.6 01/31/18 21:31 128/59 01/31/18 21:31 61 128/59 01/31/18 20:00 97.9 61 18 128/59 99 97.9 Height (Feet): 5 Height (Inches): 5.00 Weight (Pounds): 120 HEENT: anicteric Respiratory/Chest: no respiratory distress Cardiovascular: no gallop/murmur Abdomen: no organomegaly Laboratory Tests Test 02/01/18 05:35 White Blood Count 5.6 K/UL (4.8-10.8) Red Blood Count 3.11 M/UL (4.70-6.10) L Hemoglobin 9.8 G/DL (14.2-18.0) L Hematocrit 30.3 % (42.0-52.0) L Mean Corpuscular Volume 97 FL (80-99) Mean Corpuscular Hemoglobin 31.4 PG (27.0-31.0) H Mean Corpuscular Hemoglobin Concent 32.2 G/DL (32.0-36.0) Red Cell Distribution Width 14.0 % (11.6-14.8) Platelet Count 158 K/UL (150-450) Mean Platelet Volume 6.1 FL (6.5-10.1) L Neutrophils (%) (Auto) 54.8 % (45.0-75.0) Lymphocytes (%) (Auto) 32.6 % (20.0-45.0) Monocytes (%) (Auto) 8.7 % (1.0-10.0) Eosinophils (%) (Auto) 3.1 % (0.0-3.0) H Basophils (%) (Auto) 0.8 % (0.0-2.0) Erythrocyte Sedimentation Rate 37 MM/HR (0-30) H Sodium Level 136 MMOL/L (136-145) Potassium Level 4.6 MMOL/L (3.5-5.1) Chloride Level 105 MMOL/L (98-107) Carbon Dioxide Level 24 MMOL/L (21-32) Anion Gap 7 mmol/L (5-15) Blood Urea Nitrogen 46 mg/dL (7-18) H Creatinine 2.5 MG/DL (0.55-1.30) H Estimat Glomerular Filtration Rate mL/min (>60) Glucose Level 95 MG/DL (74-106) Calcium Level 7.9 MG/DL (8.5-10.1) L Phosphorus Level 4.2 MG/DL (2.5-4.9) Magnesium Level 1.9 MG/DL (1.8-2.4) Total Bilirubin 0.3 MG/DL (0.2-1.0) Aspartate Amino Transf (AST/SGOT) 64 U/L (15-37) H Alanine Aminotransferase (ALT/SGPT) 61 U/L (12-78) Alkaline Phosphatase 154 U/L (46-116) H C-Reactive Protein, Quantitative 1.0 mg/dL (0.00-0.90) H Total Protein 6.5 G/DL (6.4-8.2) Albumin 2.7 G/DL (3.4-5.0) L Globulin 3.8 g/dL Albumin/Globulin Ratio 0.7 (1.0-2.7) L Current Medications Medications (Trade) Dose Ordered Sig/Soumya Route PRN Reason Start Time Stop Time Status Last Admin Dose Admin Acetaminophen (Tylenol) 650 mg Q4H PRN ORAL Mild Pain/Temp > 100.5 01/28/18 22:30 02/24/18 18:29 Allopurinol (Zyloprim) 100 mg DAILY ORAL 01/30/18 14:00 03/01/18 13:59 02/01/18 08:22 Atorvastatin Calcium (Lipitor) 40 mg BEDTIME ORAL 01/28/18 21:00 02/27/18 20:59 01/31/18 21:31 Carvedilol (Coreg) 12.5 mg EVERY 12 HOURS ORAL 01/28/18 21:00 02/24/18 20:59 02/01/18 08:24 Dabigatran (Pradaxa) 75 mg EVERY 12 HOURS ORAL 01/28/18 21:00 02/24/18 20:59 02/01/18 08:22 Donepezil HCl (Aricept) 5 mg DAILY ORAL 01/29/18 09:00 02/25/18 08:59 02/01/18 08:22 Ertapenem 0.5 gm/ Sodium Chloride 55 ml @ 110 mls/hr Q24H IVPB 01/29/18 14:00 02/06/18 23:59 02/01/18 14:18 Hydralazine HCl (Apresoline) 20 mg Q8HR ORAL 02/01/18 22:00 02/24/18 19:59 Isosorbide Mononitrate (Imdur) 30 mg DAILY ORAL 01/29/18 09:00 02/24/18 19:59 02/01/18 08:25 Loperamide HCl (Imodium) 2 mg Q4H PRN ORAL Diarrhea 01/28/18 19:30 02/26/18 15:29 Pantoprazole (Protonix) 40 mg DAILY ORAL 01/29/18 09:00 02/25/18 08:59 02/01/18 08:23 Tamsulosin HCl (Flomax) 0.4 mg BEDTIME ORAL 01/28/18 21:00 02/24/18 20:59 01/31/18 21:31 Toni Rios MD Feb 01, 2018 17:19
[2018-02-01 20:00] VITALS: BP 100/52
[2018-02-01] MEDS: Atorvastatin 20mg tab ORAL SCH (21:55)
[2018-02-01] MEDS: Tamsulosin 0.4mg cap ORAL SCH (21:55)
--- NOTE | 2018-02-01 23:56 | Cardiology Progress Note ---
Assessment/Plan Assessment/Plan 1. Acute systolic and diastolic CHF, LVEF at 35%, did not tolerate low dose diuretics or ACEI due to increasing creat, continue carvedilol and hydralazine. 2. Slight elevation of troponin not typical for ACS, most likely due to heart failure. Recent nuclear stress test has shown no myocardial wall ischemia and scar/myocardial infarction in the inferior wall. 3. Dual-chamber pacemaker implantation, [employer], implanted in 2017, appears to be functioning normally. 4. Permanent atrial fibrillation, continue Pradaxa. 5. History of coronary artery disease, no prior hx of cardiac cath per patient. Subjective Subjective No cardiac events. No chest pain or SOB at this time. Objective Last 24 Hour Vital Signs Date Time Temp Pulse Resp B/P (MAP) Pulse Ox O2 Delivery O2 Flow Rate FiO2 02/01/18 22:00 100/52 02/01/18 21:00 81 100/52 02/01/18 20:00 98.4 81 19 100/52 98 Room Air 98.4 02/01/18 16:00 97.1 62 20 115/55 99 Room Air 97.1 02/01/18 14:00 108/53 02/01/18 12:00 98.0 66 18 142/63 97 Room Air 98.0 02/01/18 08:25 146/60 02/01/18 08:25 146/60 02/01/18 08:24 62 146/60 02/01/18 08:00 97.9 68 18 146/60 98 Room Air 97.9 02/01/18 06:10 125/89 02/01/18 04:00 98.6 67 18 125/89 100 98.6 02/01/18 00:00 98.6 74 18 120/92 96 98.6 Intake and Output 01/31/18 02/01/18 19:00 07:00 Intake Total 505 ml 300 ml Output Total 500 ml 650 ml Balance 5 ml -350 ml Intake Oral 450 ml 300 ml IV Total 55 ml Output Urine Total 500 ml 650 ml # Voids 100 # Bowel Movements 1 2D Echo: EF 35%, Global HK, HAMILTON,elevated RAP,Mild AR/MR,Grade II LVDD,RVSP 41 mmHg Laboratory Tests Test 02/01/18 05:35 White Blood Count 5.6 K/UL (4.8-10.8) Red Blood Count 3.11 M/UL (4.70-6.10) L Hemoglobin 9.8 G/DL (14.2-18.0) L Hematocrit 30.3 % (42.0-52.0) L Mean Corpuscular Volume 97 FL (80-99) Mean Corpuscular Hemoglobin 31.4 PG (27.0-31.0) H Mean Corpuscular Hemoglobin Concent 32.2 G/DL (32.0-36.0) Red Cell Distribution Width 14.0 % (11.6-14.8) Platelet Count 158 K/UL (150-450) Mean Platelet Volume 6.1 FL (6.5-10.1) L Neutrophils (%) (Auto) 54.8 % (45.0-75.0) Lymphocytes (%) (Auto) 32.6 % (20.0-45.0) Monocytes (%) (Auto) 8.7 % (1.0-10.0) Eosinophils (%) (Auto) 3.1 % (0.0-3.0) H Basophils (%) (Auto) 0.8 % (0.0-2.0) Erythrocyte Sedimentation Rate 37 MM/HR (0-30) H Sodium Level 136 MMOL/L (136-145) Potassium Level 4.6 MMOL/L (3.5-5.1) Chloride Level 105 MMOL/L (98-107) Carbon Dioxide Level 24 MMOL/L (21-32) Anion Gap 7 mmol/L (5-15) Blood Urea Nitrogen 46 mg/dL (7-18) H Creatinine 2.5 MG/DL (0.55-1.30) H Estimat Glomerular Filtration Rate mL/min (>60) Glucose Level 95 MG/DL (74-106) Calcium Level 7.9 MG/DL (8.5-10.1) L Phosphorus Level 4.2 MG/DL (2.5-4.9) Magnesium Level 1.9 MG/DL (1.8-2.4) Total Bilirubin 0.3 MG/DL (0.2-1.0) Aspartate Amino Transf (AST/SGOT) 64 U/L (15-37) H Alanine Aminotransferase (ALT/SGPT) 61 U/L (12-78) Alkaline Phosphatase 154 U/L (46-116) H C-Reactive Protein, Quantitative 1.0 mg/dL (0.00-0.90) H Total Protein 6.5 G/DL (6.4-8.2) Albumin 2.7 G/DL (3.4-5.0) L Globulin 3.8 g/dL Albumin/Globulin Ratio 0.7 (1.0-2.7) L Objective HEENT: Atraumatic and normocephalic. ENT, pupils are equal, round, and reactive to light and accommodation. There is periorbital edema. Conjunctival pallor. NECK: JVP is less than 5 cm. No carotid bruit. Carotid upstrokes 2+ bilaterally. CARDIOVASCULAR: Normal S1 and S2. Regular rate and rhythm. There is 2/6 mid systolic murmur at the left sternal border. PMI is at fourth intercostal space at the midclavicular line. LUNGS: Clear to auscultation bilaterally. ABDOMEN: Soft, nontender, and nondistended. No hepatosplenomegaly. Positive bowel sounds. EXTREMITIES: No evidence of edema, clubbing, or cyanosis. MALINDA FREY Feb 01, 2018 23:56
[2018-02-02] VITALS: BP 102/54
[2018-02-02 04:00] VITALS: BP 102/50
[2018-02-02] MEDS: HydrALAZINE 10mg Tab ORAL SCH (06:00)
[2018-02-02 07:22] LABS: ALANINE AMINOTRANSFERASE 61 U/L (12-78); ALBUMIN 2.6 G/DL (3.4-5.0); ALBUMIN/GLOBULIN RATIO 0.7 (1.0-2.7); ALKALINE PHOSPHATASE 151 U/L (46-116); ANION GAP 6 mmol/L (5-15); ASPARTATE AMINO TRANSFERASE 56 U/L (15-37); BILIRUBIN,TOTAL 0.3 MG/DL (0.2-1.0); BLOOD UREA NITROGEN 50 mg/dL (7-18); CALCIUM 7.8 MG/DL (8.5-10.1); CARBON DIOXIDE 25 MMOL/L (21-32); CHLORIDE 105 MMOL/L (98-107); CREATININE 2.4 MG/DL (0.55-1.30); PHOSPHORUS 4.5 MG/DL (2.5-4.9); POTASSIUM 4.3 MMOL/L (3.5-5.1); SODIUM 136 MMOL/L (136-145)
[2018-02-02 08:00] VITALS: BP 120/50
[2018-02-02] MEDS: Imdur 30mg tab ORAL SCH (09:35)
[2018-02-02] MEDS: Carvedilol 12.5mg tab ORAL SCH ×2 (09:35→20:45)
[2018-02-02] MEDS: Donepezil 5mg Tab ORAL SCH (09:35)
[2018-02-02] MEDS: Allopurinol 100mg Tab ORAL SCH (09:35)
--- NOTE | 2018-02-02 11:40 | Nephrology Progress Note ---
Assessment/Plan Problem List: (1) CKD (chronic kidney disease) (2) Cardiomyopathy (3) Anemia (4) Pacemaker (5) UTI (urinary tract infection) Assessment Renal failure- Likely CKD Cr taj 2.5 Anemia related to above others: 1. Acute systolic and diastolic CHF, LVEF at 35%, last nuclear stress test showed no ischemia and scar/myocardial infarction in the inferior wall. 2. Slight elevation of troponin not typical for ACS, most likely due to heart failure. 3. Dual-chamber pacemaker implantation, [employer], implanted in 2017, appears to be functioning normally. 4. Permanent atrial fibrillation, continue Pradaxa. 5. History of coronary artery disease, no prior hx of cardiac cath per patient. Plan Stop Zestril down on hydralazine stop lasix NS bollous Optimize cardiac status- avoid nephrotoxics- monitor renal parameters Kidney CÉSAR Unremarkable per orders Subjective ROS Limited/Unobtainable: No Objective Objective Last 24 Hour Vital Signs Date Time Temp Pulse Resp B/P (MAP) Pulse Ox O2 Delivery O2 Flow Rate FiO2 02/02/18 09:35 102/50 02/02/18 09:35 61 102/50 02/02/18 08:00 97.2 61 18 120/50 99 Room Air 97.2 02/02/18 06:00 102/50 02/02/18 04:00 98.1 61 20 102/50 98 Room Air 98.1 02/02/18 00:00 97.7 60 19 102/54 97 Room Air 97.7 02/01/18 22:00 100/52 02/01/18 21:00 81 100/52 02/01/18 20:00 98.4 81 19 100/52 98 Room Air 98.4 02/01/18 16:00 97.1 62 20 115/55 99 Room Air 97.1 02/01/18 14:00 108/53 02/01/18 12:00 98.0 66 18 142/63 97 Room Air 98.0 Intake and Output 02/01/18 02/02/18 19:00 07:00 Intake Total 1000 ml Output Total 650 ml 300 ml Balance 350 ml -300 ml Intake Oral 1000 ml Output Urine Total 650 ml 300 ml # Voids 4 2 # Bowel Movements 1 Laboratory Tests 02/02/18 06:25: Sodium Level 136, Potassium Level 4.3, Chloride Level 105, Carbon Dioxide Level 25, Anion Gap 6, Blood Urea Nitrogen 50H, Creatinine 2.4H, Estimat Glomerular Filtration Rate , Glucose Level 106, Uric Acid 8.5H, Calcium Level 7.8L, Phosphorus Level 4.5, Magnesium Level 1.9, Total Bilirubin 0.3, Aspartate Amino Transf (AST/SGOT) 56H, Alanine Aminotransferase (ALT/SGPT) 61, Alkaline Phosphatase 151H, Total Protein 6.3L, Albumin 2.6L, Globulin 3.7, Albumin/ Globulin Ratio 0.7L Height (Feet): 5 Height (Inches): 5.00 Weight (Pounds): 120 General Appearance: no apparent distress Objective no change- no signs of chf SHARRON ORTA Feb 02, 2018 11:40
[2018-02-02 12:00] VITALS: BP 94/49
[2018-02-02] MEDS ORDERED: Sodium Chloride 500ML 500 ML IV SCH (12:00)
[2018-02-02] MEDS ORDERED: HydrALAZINE 10mg Tab ORAL SCH (14:00)
--- NOTE | 2018-02-02 15:00 | Pulmonology Progress Note ---
Assessment/Plan Problems: (1) Infection due to ESBL-producing Klebsiella pneumoniae (2) UTI (urinary tract infection) (3) Acute end-stage systolic heart failure (4) EF 30% (5) ATN (acute tubular necrosis) (6) Severe protein-calorie malnutrition Assessment/Plan creatinine stable, stop lasix for now, check electrolytes. on iv abx, on Ertapenem day 04/07 afebrile, wbc normal check ESR, CRP check cultures symptomatic treatment Subjective ROS Limited/Unobtainable: No Constitutional: Reports: no symptoms HEENT: Repors: no symptoms Respiratory: Reports: no symptoms Allergies: Coded Allergies: No Known Allergies (Unverified , 09/27/15) Objective Last 24 Hour Vital Signs Date Time Temp Pulse Resp B/P (MAP) Pulse Ox O2 Delivery O2 Flow Rate FiO2 02/02/18 12:00 97.7 61 20 94/49 100 Room Air 97.7 02/02/18 09:35 102/50 02/02/18 09:35 61 102/50 02/02/18 08:00 97.2 61 18 120/50 99 Room Air 97.2 02/02/18 06:00 102/50 02/02/18 04:00 98.1 61 20 102/50 98 Room Air 98.1 02/02/18 00:00 97.7 60 19 102/54 97 Room Air 97.7 02/01/18 22:00 100/52 02/01/18 21:00 81 100/52 02/01/18 20:00 98.4 81 19 100/52 98 Room Air 98.4 02/01/18 16:00 97.1 62 20 115/55 99 Room Air 97.1 Intake and Output 02/01/18 02/02/18 19:00 07:00 Intake Total 1000 ml Output Total 650 ml 300 ml Balance 350 ml -300 ml Intake Oral 1000 ml Output Urine Total 650 ml 300 ml # Voids 4 2 # Bowel Movements 1 Objective General Appearance: cachetic Lines, tubes and drains: peripheral HEENT: normocephalic, atraumatic Neck: non-tender, normal alignment Respiratory/Chest: chest wall non-tender, lungs clear Cardiovascular/Chest: normal peripheral pulses, regular rhythm, regularly irregular Abdomen: normal bowel sounds, non tender, soft Extremities: normal range of motion, normal inspection Laboratory Tests 02/02/18 06:25: Sodium Level 136, Potassium Level 4.3, Chloride Level 105, Carbon Dioxide Level 25, Anion Gap 6, Blood Urea Nitrogen 50H, Creatinine 2.4H, Estimat Glomerular Filtration Rate , Glucose Level 106, Uric Acid 8.5H, Calcium Level 7.8L, Phosphorus Level 4.5, Magnesium Level 1.9, Total Bilirubin 0.3, Aspartate Amino Transf (AST/SGOT) 56H, Alanine Aminotransferase (ALT/SGPT) 61, Alkaline Phosphatase 151H, Total Protein 6.3L, Albumin 2.6L, Globulin 3.7, Albumin/ Globulin Ratio 0.7L Current Medications Medications (Trade) Dose Ordered Sig/Soumya Route PRN Reason Start Time Stop Time Status Last Admin Dose Admin Acetaminophen (Tylenol) 650 mg Q4H PRN ORAL Mild Pain/Temp > 100.5 01/28/18 22:30 02/24/18 18:29 Allopurinol (Zyloprim) 100 mg DAILY ORAL 01/30/18 14:00 03/01/18 13:59 02/02/18 09:35 Atorvastatin Calcium (Lipitor) 40 mg BEDTIME ORAL 01/28/18 21:00 02/27/18 20:59 02/01/18 21:55 Carvedilol (Coreg) 12.5 mg EVERY 12 HOURS ORAL 01/28/18 21:00 02/24/18 20:59 02/02/18 09:35 Dabigatran (Pradaxa) 75 mg EVERY 12 HOURS ORAL 01/28/18 21:00 02/24/18 20:59 02/02/18 09:34 Donepezil HCl (Aricept) 5 mg DAILY ORAL 01/29/18 09:00 02/25/18 08:59 02/02/18 09:35 Ertapenem 0.5 gm/ Sodium Chloride 55 ml @ 110 mls/hr Q24H IVPB 01/29/18 14:00 02/06/18 23:59 02/01/18 14:18 Isosorbide Mononitrate (Imdur) 30 mg DAILY ORAL 01/29/18 09:00 02/24/18 19:59 02/02/18 09:35 Loperamide HCl (Imodium) 2 mg Q4H PRN ORAL Diarrhea 01/28/18 19:30 02/26/18 15:29 Pantoprazole (Protonix) 40 mg DAILY ORAL 01/29/18 09:00 02/25/18 08:59 02/02/18 09:35 Tamsulosin HCl (Flomax) 0.4 mg BEDTIME ORAL 01/28/18 21:00 02/24/18 20:59 02/01/18 21:55 Eileen Reyna MD Feb 02, 2018 15:00
[2018-02-02] MEDS: Ertapenem 0.5 GM in NS 55 ML IVPB SCH (15:18)
[2018-02-02 16:00] VITALS: BP 109/56
[2018-02-02 20:00] VITALS: BP 111/50
[2018-02-02] MEDS: Tamsulosin 0.4mg cap ORAL SCH (20:46)
[2018-02-02] MEDS: Atorvastatin 20mg tab ORAL SCH (20:46)
--- NOTE | 2018-02-02 22:17 | Cardiology Progress Note ---
Assessment/Plan Assessment/Plan 1. Acute systolic and diastolic CHF, LVEF at 35%, off all heart failure regimen due to hypotension. 2. Slight elevation of troponin not typical for ACS, most likely due to heart failure. Recent nuclear stress test has shown no myocardial wall ischemia but myocardial infarction in the inferior wall. 3. Dual-chamber pacemaker implantation, [employer], implanted in 2017, appears to be functioning normally. 4. Permanent atrial fibrillation, continue Pradaxa. 5. History of coronary artery disease, no prior hx of cardiac cath per patient. Subjective Subjective Was hypotensive earlier, hydralazine was placed on hold. No chest pain or SOB at this time. Objective Last 24 Hour Vital Signs Date Time Temp Pulse Resp B/P (MAP) Pulse Ox O2 Delivery O2 Flow Rate FiO2 02/02/18 20:45 63 111/50 02/02/18 20:00 98.1 63 20 111/50 98 Room Air 98.1 02/02/18 16:00 98.2 62 19 109/56 99 Room Air 98.2 02/02/18 12:00 97.7 61 20 94/49 100 Room Air 97.7 02/02/18 09:35 102/50 02/02/18 09:35 61 102/50 02/02/18 08:00 97.2 61 18 120/50 99 Room Air 97.2 02/02/18 06:00 102/50 02/02/18 04:00 98.1 61 20 102/50 98 Room Air 98.1 02/02/18 00:00 97.7 60 19 102/54 97 Room Air 97.7 Intake and Output 02/01/18 02/02/18 19:00 07:00 Intake Total 1000 ml Output Total 650 ml 300 ml Balance 350 ml -300 ml Intake Oral 1000 ml Output Urine Total 650 ml 300 ml # Voids 4 2 # Bowel Movements 1 2D Echo: EF 35%, Global HK, HAMILTON,elevated RAP,Mild AR/MR,Grade II LVDD,RVSP 41 mmHg Laboratory Tests Test 02/02/18 06:25 Sodium Level 136 MMOL/L (136-145) Potassium Level 4.3 MMOL/L (3.5-5.1) Chloride Level 105 MMOL/L (98-107) Carbon Dioxide Level 25 MMOL/L (21-32) Anion Gap 6 mmol/L (5-15) Blood Urea Nitrogen 50 mg/dL (7-18) H Creatinine 2.4 MG/DL (0.55-1.30) H Estimat Glomerular Filtration Rate mL/min (>60) Glucose Level 106 MG/DL (74-106) Uric Acid 8.5 MG/DL (2.6-7.2) H Calcium Level 7.8 MG/DL (8.5-10.1) L Phosphorus Level 4.5 MG/DL (2.5-4.9) Magnesium Level 1.9 MG/DL (1.8-2.4) Total Bilirubin 0.3 MG/DL (0.2-1.0) Aspartate Amino Transf (AST/SGOT) 56 U/L (15-37) H Alanine Aminotransferase (ALT/SGPT) 61 U/L (12-78) Alkaline Phosphatase 151 U/L (46-116) H Total Protein 6.3 G/DL (6.4-8.2) L Albumin 2.6 G/DL (3.4-5.0) L Globulin 3.7 g/dL Albumin/Globulin Ratio 0.7 (1.0-2.7) L Objective HEENT: Atraumatic and normocephalic. ENT, pupils are equal, round, and reactive to light and accommodation. There is periorbital edema. Conjunctival pallor. NECK: JVP is less than 5 cm. No carotid bruit. Carotid upstrokes 2+ bilaterally. CARDIOVASCULAR: Normal S1 and S2. Regular rate and rhythm. There is 2/6 mid systolic murmur at the left sternal border. PMI is at fourth intercostal space at the midclavicular line. LUNGS: Clear to auscultation bilaterally. ABDOMEN: Soft, nontender, and nondistended. No hepatosplenomegaly. Positive bowel sounds. EXTREMITIES: No evidence of edema, clubbing, or cyanosis. MALINDA FREY Feb 02, 2018 22:17
[2018-02-03] VITALS (7 sets, daily range): BP systolic 106–139; BP diastolic 45–84
[2018-02-03] MEDS: Imdur 30mg tab ORAL SCH (09:12)
[2018-02-03] MEDS: Allopurinol 100mg Tab ORAL SCH (09:12)
[2018-02-03] MEDS: Donepezil 5mg Tab ORAL SCH (09:12)
[2018-02-03] MEDS: Carvedilol 12.5mg tab ORAL SCH ×2 (09:12→20:58)
[2018-02-03 10:40] LABS: ANION GAP 9 mmol/L (5-15); BLOOD UREA NITROGEN 53 mg/dL (7-18); CALCIUM 8.2 MG/DL (8.5-10.1); CARBON DIOXIDE 23 MMOL/L (21-32); CHLORIDE 107 MMOL/L (98-107); CREATININE 2.2 MG/DL (0.55-1.30); POTASSIUM 4.5 MMOL/L (3.5-5.1); SODIUM 138 MMOL/L (136-145)
--- NOTE | 2018-02-03 12:50 | Nephrology Progress Note ---
Assessment/Plan Problem List: (1) CKD (chronic kidney disease) (2) Cardiomyopathy (3) Anemia (4) Pacemaker (5) UTI (urinary tract infection) Assessment Renal failure- Likely CKD Cr taj 2.5 Anemia related to above others: 1. Acute systolic and diastolic CHF, LVEF at 35%, last nuclear stress test showed no ischemia and scar/myocardial infarction in the inferior wall. 2. Slight elevation of troponin not typical for ACS, most likely due to heart failure. 3. Dual-chamber pacemaker implantation, [employer], implanted in 2017, appears to be functioning normally. 4. Permanent atrial fibrillation, continue Pradaxa. 5. History of coronary artery disease, no prior hx of cardiac cath per patient. Plan Stop Zestril down on hydralazine stop lasix NS bollous Optimize cardiac status- avoid nephrotoxics- monitor renal parameters Kidney CÉSAR Unremarkable per orders Subjective ROS Limited/Unobtainable: No Constitutional: Reports: malaise Objective Objective Last 24 Hour Vital Signs Date Time Temp Pulse Resp B/P (MAP) Pulse Ox O2 Delivery O2 Flow Rate FiO2 02/03/18 12:00 97.7 61 20 114/84 99 Room Air 97.7 02/03/18 10:50 71 133/58 02/03/18 09:12 139/59 02/03/18 09:12 65 139/59 02/03/18 08:00 96.9 65 20 139/59 99 Room Air 96.9 02/03/18 04:00 97.4 60 20 121/56 98 Room Air 97.4 02/03/18 00:00 98.6 60 20 127/55 99 Room Air 98.6 02/02/18 20:45 63 111/50 02/02/18 20:00 98.1 63 20 111/50 98 Room Air 98.1 02/02/18 16:00 98.2 62 19 109/56 99 Room Air 98.2 Intake and Output 02/02/18 02/03/18 19:00 07:00 Intake Total 1155 ml Output Total 750 ml Balance 1155 ml -750 ml Intake Oral 600 ml IV Total 555 ml Output Urine Total 750 ml # Voids 4 2 Laboratory Tests 02/03/18 05:40: Sodium Level 138, Potassium Level 4.5, Chloride Level 107, Carbon Dioxide Level 23, Anion Gap 9, Blood Urea Nitrogen 53H, Creatinine 2.2H, Estimat Glomerular Filtration Rate , Glucose Level 96, Calcium Level 8.2L, Pro-B-Type Natriuretic Peptide 8734H Height (Feet): 5 Height (Inches): 5.00 Weight (Pounds): 120 General Appearance: no apparent distress Objective no change- no signs of chf SHARRON ORTA Feb 03, 2018 12:50
--- NOTE | 2018-02-03 13:52 | Pulmonology Progress Note ---
Assessment/Plan Problems: (1) Infection due to ESBL-producing Klebsiella pneumoniae (2) UTI (urinary tract infection) (3) Acute end-stage systolic heart failure (4) EF 30% (5) ATN (acute tubular necrosis) (6) Severe protein-calorie malnutrition Assessment/Plan no new complains creatinine stable, stop lasix for now, check electrolytes. on iv abx, on Ertapenem day 04/07 afebrile, wbc normal check ESR, CRP check cultures symptomatic treatment Subjective ROS Limited/Unobtainable: No Constitutional: Reports: no symptoms HEENT: Repors: no symptoms Respiratory: Reports: no symptoms Allergies: Coded Allergies: No Known Allergies (Unverified , 09/27/15) Objective Last 24 Hour Vital Signs Date Time Temp Pulse Resp B/P (MAP) Pulse Ox O2 Delivery O2 Flow Rate FiO2 02/03/18 12:00 97.7 61 20 114/84 99 Room Air 97.7 02/03/18 10:50 71 133/58 02/03/18 09:12 139/59 02/03/18 09:12 65 139/59 02/03/18 08:00 96.9 65 20 139/59 99 Room Air 96.9 02/03/18 04:00 97.4 60 20 121/56 98 Room Air 97.4 02/03/18 00:00 98.6 60 20 127/55 99 Room Air 98.6 02/02/18 20:45 63 111/50 02/02/18 20:00 98.1 63 20 111/50 98 Room Air 98.1 02/02/18 16:00 98.2 62 19 109/56 99 Room Air 98.2 Intake and Output 02/02/18 02/03/18 19:00 07:00 Intake Total 1155 ml Output Total 750 ml Balance 1155 ml -750 ml Intake Oral 600 ml IV Total 555 ml Output Urine Total 750 ml # Voids 4 2 Objective General Appearance: cachetic Lines, tubes and drains: peripheral HEENT: normocephalic, atraumatic Neck: non-tender, normal alignment Respiratory/Chest: chest wall non-tender, lungs clear Cardiovascular/Chest: normal peripheral pulses, regular rhythm, regularly irregular Abdomen: normal bowel sounds, non tender, soft Extremities: normal range of motion, normal inspection Laboratory Tests 02/03/18 05:40: Sodium Level 138, Potassium Level 4.5, Chloride Level 107, Carbon Dioxide Level 23, Anion Gap 9, Blood Urea Nitrogen 53H, Creatinine 2.2H, Estimat Glomerular Filtration Rate , Glucose Level 96, Calcium Level 8.2L, Pro-B-Type Natriuretic Peptide 8734H Current Medications Medications (Trade) Dose Ordered Sig/Soumya Route PRN Reason Start Time Stop Time Status Last Admin Dose Admin Acetaminophen (Tylenol) 650 mg Q4H PRN ORAL Mild Pain/Temp > 100.5 01/28/18 22:30 02/24/18 18:29 Allopurinol (Zyloprim) 100 mg DAILY ORAL 01/30/18 14:00 03/01/18 13:59 02/03/18 09:12 Atorvastatin Calcium (Lipitor) 40 mg BEDTIME ORAL 01/28/18 21:00 02/27/18 20:59 02/02/18 20:46 Carvedilol (Coreg) 12.5 mg EVERY 12 HOURS ORAL 01/28/18 21:00 02/24/18 20:59 02/03/18 09:12 Dabigatran (Pradaxa) 75 mg EVERY 12 HOURS ORAL 01/28/18 21:00 02/24/18 20:59 02/03/18 09:13 Donepezil HCl (Aricept) 5 mg DAILY ORAL 01/29/18 09:00 02/25/18 08:59 02/03/18 09:12 Ertapenem 0.5 gm/ Sodium Chloride 55 ml @ 110 mls/hr Q24H IVPB 01/29/18 14:00 02/06/18 23:59 02/02/18 15:18 Isosorbide Mononitrate (Imdur) 30 mg DAILY ORAL 01/29/18 09:00 02/24/18 19:59 02/03/18 09:12 Loperamide HCl (Imodium) 2 mg Q4H PRN ORAL Diarrhea 01/28/18 19:30 02/26/18 15:29 Pantoprazole (Protonix) 40 mg DAILY ORAL 01/29/18 09:00 02/25/18 08:59 02/03/18 09:12 Tamsulosin HCl (Flomax) 0.4 mg BEDTIME ORAL 01/28/18 21:00 02/24/18 20:59 02/02/18 20:46 Eileen Reyna MD Feb 03, 2018 13:52
[2018-02-03] MEDS: Ertapenem 0.5 GM in NS 55 ML IVPB SCH (15:24)
--- NOTE | 2018-02-03 15:32 | Infectious Diseases Prog Note ---
Assessment/Plan Assessment/Plan ASSESSMENT: The patient is an 87-year-old male with, Fever, SP Probable urinary tract infection UCx ESBL E. Coli influenza. Neg Hard of hearing. hx of syncopal episodes in the past. CAD, status post myocardial infarction in the past, status post pacemaker placement. Hypertension. Osteoarthritis. History of renal insufficiency PLAN: will continue the patient on ertapenem d# 7 / 10 d Monitor CBC. Monitor BMP. Monitor culture (blood) Subjective Constitutional: Denies: no symptoms, fever, chills, fatigue, anorexia, drenching sweats, other Allergies: Coded Allergies: No Known Allergies (Unverified , 09/27/15) Objective Vital Signs Last 24 Hour Vital Signs Date Time Temp Pulse Resp B/P (MAP) Pulse Ox O2 Delivery O2 Flow Rate FiO2 02/03/18 12:00 97.7 61 20 114/84 99 Room Air 97.7 02/03/18 10:50 71 133/58 02/03/18 09:12 139/59 02/03/18 09:12 65 139/59 02/03/18 08:00 96.9 65 20 139/59 99 Room Air 96.9 02/03/18 04:00 97.4 60 20 121/56 98 Room Air 97.4 02/03/18 00:00 98.6 60 20 127/55 99 Room Air 98.6 02/02/18 20:45 63 111/50 02/02/18 20:00 98.1 63 20 111/50 98 Room Air 98.1 02/02/18 16:00 98.2 62 19 109/56 99 Room Air 98.2 Height (Feet): 5 Height (Inches): 5.00 Weight (Pounds): 120 HEENT: anicteric Respiratory/Chest: no respiratory distress Cardiovascular: regular rhythm Abdomen: no organomegaly Laboratory Tests Test 02/03/18 05:40 Sodium Level 138 MMOL/L (136-145) Potassium Level 4.5 MMOL/L (3.5-5.1) Chloride Level 107 MMOL/L (98-107) Carbon Dioxide Level 23 MMOL/L (21-32) Anion Gap 9 mmol/L (5-15) Blood Urea Nitrogen 53 mg/dL (7-18) H Creatinine 2.2 MG/DL (0.55-1.30) H Estimat Glomerular Filtration Rate mL/min (>60) Glucose Level 96 MG/DL (74-106) Calcium Level 8.2 MG/DL (8.5-10.1) L Pro-B-Type Natriuretic Peptide 8734 pg/mL (0-125) H Current Medications Medications (Trade) Dose Ordered Sig/Soumya Route PRN Reason Start Time Stop Time Status Last Admin Dose Admin Acetaminophen (Tylenol) 650 mg Q4H PRN ORAL Mild Pain/Temp > 100.5 01/28/18 22:30 02/24/18 18:29 Allopurinol (Zyloprim) 100 mg DAILY ORAL 01/30/18 14:00 03/01/18 13:59 02/03/18 09:12 Atorvastatin Calcium (Lipitor) 40 mg BEDTIME ORAL 01/28/18 21:00 02/27/18 20:59 02/02/18 20:46 Carvedilol (Coreg) 12.5 mg EVERY 12 HOURS ORAL 01/28/18 21:00 02/24/18 20:59 02/03/18 09:12 Dabigatran (Pradaxa) 75 mg EVERY 12 HOURS ORAL 01/28/18 21:00 02/24/18 20:59 02/03/18 09:13 Donepezil HCl (Aricept) 5 mg DAILY ORAL 01/29/18 09:00 02/25/18 08:59 02/03/18 09:12 Ertapenem 0.5 gm/ Sodium Chloride 55 ml @ 110 mls/hr Q24H IVPB 01/29/18 14:00 02/06/18 23:59 02/03/18 15:24 Isosorbide Mononitrate (Imdur) 30 mg DAILY ORAL 01/29/18 09:00 02/24/18 19:59 02/03/18 09:12 Loperamide HCl (Imodium) 2 mg Q4H PRN ORAL Diarrhea 01/28/18 19:30 02/26/18 15:29 Pantoprazole (Protonix) 40 mg DAILY ORAL 01/29/18 09:00 02/25/18 08:59 02/03/18 09:12 Tamsulosin HCl (Flomax) 0.4 mg BEDTIME ORAL 01/28/18 21:00 02/24/18 20:59 02/02/18 20:46 Toni Rios MD Feb 03, 2018 15:32
--- NOTE | 2018-02-03 19:56 | Cardiology Progress Note ---
Assessment/Plan Assessment/Plan 1. Acute systolic and diastolic CHF, LVEF at 35%, continue coreg and Imdur. 2. Slight elevation of troponin not typical for ACS, most likely due to heart failure. Recent nuclear stress test has shown no myocardial wall ischemia but myocardial infarction in the inferior wall. 3. Dual-chamber pacemaker implantation, [employer], implanted in 2017, appears to be functioning normally. 4. Permanent atrial fibrillation, continue Pradaxa. 5. History of coronary artery disease, no prior hx of cardiac cath per patient. 6. ALEXANDRE, creat downtrending, off lasix and ACEI. Subjective Subjective In non-telemetry unit. No chest pain or SOB at this time. Objective Last 24 Hour Vital Signs Date Time Temp Pulse Resp B/P (MAP) Pulse Ox O2 Delivery O2 Flow Rate FiO2 02/03/18 16:00 97.5 61 19 106/45 98 Room Air 97.5 02/03/18 12:00 97.7 61 20 114/84 99 Room Air 97.7 02/03/18 10:50 71 133/58 02/03/18 09:12 139/59 02/03/18 09:12 65 139/59 02/03/18 08:00 96.9 65 20 139/59 99 Room Air 96.9 02/03/18 04:00 97.4 60 20 121/56 98 Room Air 97.4 02/03/18 00:00 98.6 60 20 127/55 99 Room Air 98.6 02/02/18 20:45 63 111/50 02/02/18 20:00 98.1 63 20 111/50 98 Room Air 98.1 Intake and Output 02/02/18 02/03/18 19:00 07:00 Intake Total 1155 ml Output Total 750 ml Balance 1155 ml -750 ml Intake Oral 600 ml IV Total 555 ml Output Urine Total 750 ml # Voids 4 2 2D Echo: EF 35%, Global HK, HAMILTON,elevated RAP,Mild AR/MR,Grade II LVDD,RVSP 41 mmHg Laboratory Tests Test 02/03/18 05:40 Sodium Level 138 MMOL/L (136-145) Potassium Level 4.5 MMOL/L (3.5-5.1) Chloride Level 107 MMOL/L (98-107) Carbon Dioxide Level 23 MMOL/L (21-32) Anion Gap 9 mmol/L (5-15) Blood Urea Nitrogen 53 mg/dL (7-18) H Creatinine 2.2 MG/DL (0.55-1.30) H Estimat Glomerular Filtration Rate mL/min (>60) Glucose Level 96 MG/DL (74-106) Calcium Level 8.2 MG/DL (8.5-10.1) L Pro-B-Type Natriuretic Peptide 8734 pg/mL (0-125) H Objective HEENT: Atraumatic and normocephalic. ENT, pupils are equal, round, and reactive to light and accommodation. There is periorbital edema. Conjunctival pallor. NECK: JVP is less than 5 cm. No carotid bruit. Carotid upstrokes 2+ bilaterally. CARDIOVASCULAR: Normal S1 and S2. Regular rate and rhythm. There is 2/6 mid systolic murmur at the left sternal border. PMI is at fourth intercostal space at the midclavicular line. LUNGS: Clear to auscultation bilaterally. ABDOMEN: Soft, nontender, and nondistended. No hepatosplenomegaly. Positive bowel sounds. EXTREMITIES: No evidence of edema, clubbing, or cyanosis. MALINDA FREY Feb 03, 2018 19:56
[2018-02-03] MEDS: Tamsulosin 0.4mg cap ORAL SCH (20:57)
[2018-02-03] MEDS: Atorvastatin 20mg tab ORAL SCH (20:58)
[2018-02-04] VITALS (8 sets, daily range): BP systolic 116–145; BP diastolic 54–63
--- NOTE | 2018-02-04 08:03 | Cardiology Progress Note ---
Assessment/Plan Assessment/Plan 1. Acute systolic and diastolic CHF, LVEF at 35%, continue coreg and Imdur. Other meds for heart failure on hold temporarily due to worsening of renal failure. Jamie lresume once ALEXANDRE resolved and renal function stable. 2. Slight elevation of troponin not typical for ACS, most likely due to heart failure. Recent nuclear stress test has shown no myocardial wall ischemia but myocardial infarction in the inferior wall. 3. Dual-chamber pacemaker implantation, [employer], implanted in 2017, appears to be functioning normally. 4. Permanent atrial fibrillation, continue Pradaxa. 5. History of coronary artery disease, no prior hx of cardiac cath per patient. 6. ALEXANDRE, creat downtrending, off lasix and ACEI for now. Subjective Subjective In non-telemetry unit. No chest pain or SOB at this time. Objective Last 24 Hour Vital Signs Date Time Temp Pulse Resp B/P (MAP) Pulse Ox O2 Delivery O2 Flow Rate FiO2 02/04/18 04:00 98.2 60 18 116/54 99 Room Air 98.2 02/04/18 00:26 97.7 66 18 132/61 99 Room Air 97.7 02/03/18 20:58 61 123/54 02/03/18 20:00 97.4 61 18 123/54 98 Room Air 97.4 02/03/18 16:00 97.5 61 19 106/45 98 Room Air 97.5 02/03/18 12:00 97.7 61 20 114/84 99 Room Air 97.7 02/03/18 10:50 71 133/58 02/03/18 09:12 139/59 02/03/18 09:12 65 139/59 02/03/18 08:00 96.9 65 20 139/59 99 Room Air 96.9 Intake and Output 02/03/18 02/04/18 19:00 07:00 Intake Total 600 ml Output Total 3 ml 600 ml Balance 597 ml -600 ml Intake Oral 600 ml Output Urine Total 3 ml 600 ml 2D Echo: EF 35%, Global HK, HAMILTON,elevated RAP,Mild AR/MR,Grade II LVDD,RVSP 41 mmHg Objective HEENT: Atraumatic and normocephalic. ENT, pupils are equal, round, and reactive to light and accommodation. There is periorbital edema. Conjunctival pallor. NECK: JVP is less than 5 cm. No carotid bruit. Carotid upstrokes 2+ bilaterally. CARDIOVASCULAR: Normal S1 and S2. Regular rate and rhythm. There is 2/6 mid systolic murmur at the left sternal border. PMI is at fourth intercostal space at the midclavicular line. LUNGS: Clear to auscultation bilaterally. ABDOMEN: Soft, nontender, and nondistended. No hepatosplenomegaly. Positive bowel sounds. EXTREMITIES: No evidence of edema, clubbing, or cyanosis. MALINDA FREY Feb 04, 2018 08:02
[2018-02-04] MEDS: Donepezil 5mg Tab ORAL SCH (09:02)
[2018-02-04] MEDS: Allopurinol 100mg Tab ORAL SCH (09:02)
[2018-02-04] MEDS: Imdur 30mg tab ORAL SCH (10:09)
[2018-02-04] MEDS: Carvedilol 12.5mg tab ORAL SCH ×2 (10:09→21:45)
[2018-02-04] MEDS ORDERED: NS 500ML ONE (10:54)
--- NOTE | 2018-02-04 14:40 | Pulmonology Progress Note ---
Assessment/Plan Problems: (1) Infection due to ESBL-producing Klebsiella pneumoniae (2) UTI (urinary tract infection) (3) Acute end-stage systolic heart failure (4) EF 30% (5) ATN (acute tubular necrosis) (6) Severe protein-calorie malnutrition Assessment/Plan no new complains creatinine stable, check electrolytes. on iv abx, on Ertapenem day 06/07 afebrile, wbc normal check ESR, CRP check cultures symptomatic treatment Subjective ROS Limited/Unobtainable: No Constitutional: Reports: no symptoms HEENT: Repors: no symptoms Respiratory: Reports: no symptoms Allergies: Coded Allergies: No Known Allergies (Unverified , 09/27/15) Objective Last 24 Hour Vital Signs Date Time Temp Pulse Resp B/P (MAP) Pulse Ox O2 Delivery O2 Flow Rate FiO2 02/04/18 12:00 97.7 67 21 130/63 100 Room Air 97.7 02/04/18 10:09 125/62 02/04/18 10:09 61 125/62 02/04/18 10:08 61 125/62 02/04/18 09:04 62 121/59 02/04/18 08:00 98.9 63 22 145/59 99 Room Air 98.9 02/04/18 04:00 98.2 60 18 116/54 99 Room Air 98.2 02/04/18 00:26 97.7 66 18 132/61 99 Room Air 97.7 02/03/18 20:58 61 123/54 02/03/18 20:00 97.4 61 18 123/54 98 Room Air 97.4 02/03/18 16:00 97.5 61 19 106/45 98 Room Air 97.5 Intake and Output 02/03/18 02/04/18 19:00 07:00 Intake Total 600 ml Output Total 3 ml 600 ml Balance 597 ml -600 ml Intake Oral 600 ml Output Urine Total 3 ml 600 ml Objective General Appearance: cachetic Lines, tubes and drains: peripheral HEENT: normocephalic, atraumatic Neck: non-tender, normal alignment Respiratory/Chest: chest wall non-tender, lungs clear Cardiovascular/Chest: normal peripheral pulses, regular rhythm, regularly irregular Abdomen: normal bowel sounds, non tender, soft Extremities: normal range of motion, normal inspection Current Medications Medications (Trade) Dose Ordered Sig/Soumya Route PRN Reason Start Time Stop Time Status Last Admin Dose Admin Acetaminophen (Tylenol) 650 mg Q4H PRN ORAL Mild Pain/Temp > 100.5 01/28/18 22:30 02/24/18 18:29 Allopurinol (Zyloprim) 100 mg DAILY ORAL 01/30/18 14:00 03/01/18 13:59 02/04/18 09:02 Atorvastatin Calcium (Lipitor) 40 mg BEDTIME ORAL 01/28/18 21:00 02/27/18 20:59 02/03/18 20:58 Carvedilol (Coreg) 12.5 mg EVERY 12 HOURS ORAL 01/28/18 21:00 02/24/18 20:59 02/04/18 10:09 Dabigatran (Pradaxa) 75 mg EVERY 12 HOURS ORAL 01/28/18 21:00 02/24/18 20:59 02/04/18 09:02 Donepezil HCl (Aricept) 5 mg DAILY ORAL 01/29/18 09:00 02/25/18 08:59 02/04/18 09:02 Ertapenem 0.5 gm/ Sodium Chloride 55 ml @ 110 mls/hr Q24H IVPB 01/29/18 14:00 02/06/18 23:59 02/03/18 15:24 Isosorbide Mononitrate (Imdur) 30 mg DAILY ORAL 01/29/18 09:00 02/24/18 19:59 02/04/18 10:09 Loperamide HCl (Imodium) 2 mg Q4H PRN ORAL Diarrhea 01/28/18 19:30 02/26/18 15:29 Pantoprazole (Protonix) 40 mg DAILY ORAL 01/29/18 09:00 02/25/18 08:59 02/04/18 09:02 Tamsulosin HCl (Flomax) 0.4 mg BEDTIME ORAL 01/28/18 21:00 02/24/18 20:59 02/03/18 20:57 Eileen Reyna MD Feb 04, 2018 14:40
[2018-02-04] MEDS: Ertapenem 0.5 GM in NS 55 ML IVPB SCH (14:47)
--- NOTE | 2018-02-04 15:33 | Nephrology Progress Note ---
Assessment/Plan Problem List: (1) CKD (chronic kidney disease) (2) Cardiomyopathy (3) Anemia (4) Pacemaker (5) UTI (urinary tract infection) Assessment Renal failure- Likely CKD Cr taj 2.5 Anemia related to above others: 1. Acute systolic and diastolic CHF, LVEF at 35%, last nuclear stress test showed no ischemia and scar/myocardial infarction in the inferior wall. 2. Slight elevation of troponin not typical for ACS, most likely due to heart failure. 3. Dual-chamber pacemaker implantation, [employer], implanted in 2017, appears to be functioning normally. 4. Permanent atrial fibrillation, continue Pradaxa. 5. History of coronary artery disease, no prior hx of cardiac cath per patient. Plan Stop Zestril down on hydralazine stop lasix NS bollous Optimize cardiac status- avoid nephrotoxics- monitor renal parameters Kidney CÉSAR Unremarkable per orders Subjective ROS Limited/Unobtainable: No Constitutional: Reports: malaise Objective Objective Last 24 Hour Vital Signs Date Time Temp Pulse Resp B/P (MAP) Pulse Ox O2 Delivery O2 Flow Rate FiO2 02/04/18 12:00 97.7 67 21 130/63 100 Room Air 97.7 02/04/18 10:09 125/62 02/04/18 10:09 61 125/62 02/04/18 10:08 61 125/62 02/04/18 09:04 62 121/59 02/04/18 08:00 98.9 63 22 145/59 99 Room Air 98.9 02/04/18 04:00 98.2 60 18 116/54 99 Room Air 98.2 02/04/18 00:26 97.7 66 18 132/61 99 Room Air 97.7 02/03/18 20:58 61 123/54 02/03/18 20:00 97.4 61 18 123/54 98 Room Air 97.4 02/03/18 16:00 97.5 61 19 106/45 98 Room Air 97.5 Intake and Output 02/03/18 02/04/18 19:00 07:00 Intake Total 600 ml Output Total 3 ml 600 ml Balance 597 ml -600 ml Intake Oral 600 ml Output Urine Total 3 ml 600 ml Height (Feet): 5 Height (Inches): 5.00 Weight (Pounds): 120 General Appearance: no apparent distress Respiratory/Chest: decreased breath sounds Abdomen: soft Objective no change- no signs of chf SHARRON ORTA Feb 04, 2018 15:33
[2018-02-04] MEDS ORDERED: NS 275ml ONE (18:10)
[2018-02-04] MEDS ORDERED: Tubing IV Secondary IV ONE (18:10)
--- NOTE | 2018-02-04 19:34 | Infectious Diseases Prog Note ---
Assessment/Plan Assessment/Plan ASSESSMENT: The patient is an 87-year-old male with, Fever, SP Probable urinary tract infection UCx ESBL E. Coli influenza. Neg Hard of hearing. hx of syncopal episodes in the past. CAD, status post myocardial infarction in the past, status post pacemaker placement. Hypertension. Osteoarthritis. History of renal insufficiency PLAN: will continue the patient on ertapenem d# 8 / 10 d Monitor CBC. Monitor BMP. Monitor culture (blood) Subjective Constitutional: Denies: no symptoms, fever, chills, fatigue, anorexia, drenching sweats, other Allergies: Coded Allergies: No Known Allergies (Unverified , 09/27/15) Objective Vital Signs Last 24 Hour Vital Signs Date Time Temp Pulse Resp B/P (MAP) Pulse Ox O2 Delivery O2 Flow Rate FiO2 02/04/18 16:00 97.7 62 20 126/56 99 Room Air 97.7 02/04/18 12:00 97.7 67 21 130/63 100 Room Air 97.7 02/04/18 10:09 125/62 02/04/18 10:09 61 125/62 02/04/18 10:08 61 125/62 02/04/18 09:04 62 121/59 02/04/18 08:00 98.9 63 22 145/59 99 Room Air 98.9 02/04/18 04:00 98.2 60 18 116/54 99 Room Air 98.2 02/04/18 00:26 97.7 66 18 132/61 99 Room Air 97.7 02/03/18 20:58 61 123/54 02/03/18 20:00 97.4 61 18 123/54 98 Room Air 97.4 Height (Feet): 5 Height (Inches): 5.00 Weight (Pounds): 120 HEENT: anicteric Respiratory/Chest: no respiratory distress Cardiovascular: no JVD Abdomen: non distended Current Medications Medications (Trade) Dose Ordered Sig/Soumya Route PRN Reason Start Time Stop Time Status Last Admin Dose Admin Acetaminophen (Tylenol) 650 mg Q4H PRN ORAL Mild Pain/Temp > 100.5 01/28/18 22:30 02/24/18 18:29 Allopurinol (Zyloprim) 100 mg DAILY ORAL 01/30/18 14:00 03/01/18 13:59 02/04/18 09:02 Atorvastatin Calcium (Lipitor) 40 mg BEDTIME ORAL 01/28/18 21:00 02/27/18 20:59 02/03/18 20:58 Carvedilol (Coreg) 12.5 mg EVERY 12 HOURS ORAL 01/28/18 21:00 02/24/18 20:59 02/04/18 10:09 Dabigatran (Pradaxa) 75 mg EVERY 12 HOURS ORAL 01/28/18 21:00 02/24/18 20:59 02/04/18 09:02 Donepezil HCl (Aricept) 5 mg DAILY ORAL 01/29/18 09:00 02/25/18 08:59 02/04/18 09:02 Ertapenem 0.5 gm/ Sodium Chloride 55 ml @ 110 mls/hr Q24H IVPB 01/29/18 14:00 02/06/18 23:59 02/04/18 14:47 Isosorbide Mononitrate (Imdur) 30 mg DAILY ORAL 01/29/18 09:00 02/24/18 19:59 02/04/18 10:09 Loperamide HCl (Imodium) 2 mg Q4H PRN ORAL Diarrhea 01/28/18 19:30 02/26/18 15:29 Pantoprazole (Protonix) 40 mg DAILY ORAL 01/29/18 09:00 02/25/18 08:59 02/04/18 09:02 Tamsulosin HCl (Flomax) 0.4 mg BEDTIME ORAL 01/28/18 21:00 02/24/18 20:59 02/03/18 20:57 Toni Rios MD Feb 04, 2018 19:34
[2018-02-04] MEDS: Tamsulosin 0.4mg cap ORAL SCH (21:45)
[2018-02-04] MEDS: Atorvastatin 20mg tab ORAL SCH (21:45)
[2018-02-05] VITALS: BP 114/56
[2018-02-05 04:00] VITALS: BP 102/56
[2018-02-05 08:00] VITALS: BP 139/60
--- NOTE | 2018-02-05 08:53 | Infectious Diseases Prog Note ---
Assessment/Plan Assessment/Plan ASSESSMENT: The patient is an 87-year-old male with, Fever, SP Probable urinary tract infection UCx ESBL E. Coli influenza. Neg Hard of hearing. hx of syncopal episodes in the past. CAD, status post myocardial infarction in the past, status post pacemaker placement. Hypertension. Osteoarthritis. History of renal insufficiency PLAN: will continue the patient on ertapenem d# 9 / 10 d Monitor CBC. Monitor BMP Subjective Constitutional: Denies: no symptoms, fever, chills, fatigue, anorexia, drenching sweats, other Allergies: Coded Allergies: No Known Allergies (Unverified , 09/27/15) Objective Vital Signs Last 24 Hour Vital Signs Date Time Temp Pulse Resp B/P (MAP) Pulse Ox O2 Delivery O2 Flow Rate FiO2 02/05/18 04:01 Room Air 02/05/18 04:00 98.3 61 20 102/56 95 98.3 02/05/18 00:00 98.8 62 20 114/56 98 98.8 02/04/18 21:45 73 130/54 02/04/18 20:00 98.3 73 20 130/54 97 98.3 02/04/18 16:00 97.7 62 20 126/56 99 Room Air 97.7 02/04/18 12:00 97.7 67 21 130/63 100 Room Air 97.7 02/04/18 10:09 125/62 02/04/18 10:09 61 125/62 02/04/18 10:08 61 125/62 02/04/18 09:04 62 121/59 Height (Feet): 5 Height (Inches): 5.00 Weight (Pounds): 120 HEENT: mucous membranes moist Respiratory/Chest: normal breath sounds Cardiovascular: regularly irregular Abdomen: non distended Current Medications Medications (Trade) Dose Ordered Sig/Soumya Route PRN Reason Start Time Stop Time Status Last Admin Dose Admin Acetaminophen (Tylenol) 650 mg Q4H PRN ORAL Mild Pain/Temp > 100.5 01/28/18 22:30 02/24/18 18:29 Allopurinol (Zyloprim) 100 mg DAILY ORAL 01/30/18 14:00 03/01/18 13:59 02/04/18 09:02 Atorvastatin Calcium (Lipitor) 40 mg BEDTIME ORAL 01/28/18 21:00 02/27/18 20:59 02/04/18 21:45 Carvedilol (Coreg) 12.5 mg EVERY 12 HOURS ORAL 01/28/18 21:00 02/24/18 20:59 02/04/18 21:45 Dabigatran (Pradaxa) 75 mg EVERY 12 HOURS ORAL 01/28/18 21:00 02/24/18 20:59 02/04/18 21:45 Donepezil HCl (Aricept) 5 mg DAILY ORAL 01/29/18 09:00 02/25/18 08:59 02/04/18 09:02 Ertapenem 0.5 gm/ Sodium Chloride 55 ml @ 110 mls/hr Q24H IVPB 01/29/18 14:00 02/06/18 23:59 02/04/18 14:47 Isosorbide Mononitrate (Imdur) 30 mg DAILY ORAL 01/29/18 09:00 02/24/18 19:59 02/04/18 10:09 Loperamide HCl (Imodium) 2 mg Q4H PRN ORAL Diarrhea 01/28/18 19:30 02/26/18 15:29 Pantoprazole (Protonix) 40 mg DAILY ORAL 01/29/18 09:00 02/25/18 08:59 02/04/18 09:02 Tamsulosin HCl (Flomax) 0.4 mg BEDTIME ORAL 01/28/18 21:00 02/24/18 20:59 02/04/18 21:45 Toni Rios MD Feb 05, 2018 08:53
[2018-02-05] MEDS: Imdur 30mg tab ORAL SCH (09:11)
[2018-02-05] MEDS: Donepezil 5mg Tab ORAL SCH (09:11)
[2018-02-05] MEDS: Allopurinol 100mg Tab ORAL SCH (09:11)
[2018-02-05] MEDS: Carvedilol 12.5mg tab ORAL SCH (09:11)
[2018-02-05 11:39] VITALS: BP 130/71
--- NOTE | 2018-02-05 13:27 | Nephrology Progress Note ---
Assessment/Plan Problem List: (1) CKD (chronic kidney disease) (2) Cardiomyopathy (3) Anemia (4) Pacemaker (5) UTI (urinary tract infection) Assessment Renal failure- Likely CKD Cr taj 2.5 Anemia related to above others: 1. Acute systolic and diastolic CHF, LVEF at 35%, last nuclear stress test showed no ischemia and scar/myocardial infarction in the inferior wall. 2. Slight elevation of troponin not typical for ACS, most likely due to heart failure. 3. Dual-chamber pacemaker implantation, [employer], implanted in 2017, appears to be functioning normally. 4. Permanent atrial fibrillation, continue Pradaxa. 5. History of coronary artery disease, no prior hx of cardiac cath per patient. Plan no labs Stop Zestril down on hydralazine stop lasix NS bollous Optimize cardiac status- avoid nephrotoxics- monitor renal parameters Kidney CÉSAR Unremarkable per orders Subjective ROS Limited/Unobtainable: No Constitutional: Reports: malaise Objective Objective Last 24 Hour Vital Signs Date Time Temp Pulse Resp B/P (MAP) Pulse Ox O2 Delivery O2 Flow Rate FiO2 02/05/18 11:39 98.8 82 17 130/71 98 Room Air 98.8 02/05/18 09:11 139/60 02/05/18 09:11 63 139/60 02/05/18 08:00 98.9 63 18 139/60 100 Room Air 98.9 02/05/18 04:01 Room Air 02/05/18 04:00 98.3 61 20 102/56 95 98.3 02/05/18 00:00 98.8 62 20 114/56 98 98.8 02/04/18 21:45 73 130/54 02/04/18 20:00 98.3 73 20 130/54 97 98.3 02/04/18 16:00 97.7 62 20 126/56 99 Room Air 97.7 Intake and Output 02/04/18 02/05/18 19:00 07:00 Intake Total 775 ml Output Total 300 ml 400 ml Balance 475 ml -400 ml Intake Oral 720 ml IV Total 55 ml Output Urine Total 300 ml 400 ml # Voids 3 Height (Feet): 5 Height (Inches): 5.00 Weight (Pounds): 120 General Appearance: no apparent distress Objective no change- no signs of chf SHARRON ORTA Feb 05, 2018 13:27
[2018-02-05] MEDS: Ertapenem 0.5 GM in NS 55 ML IVPB SCH (14:26)
[2018-02-05 16:13] VITALS: BP 136/64
[2018-02-05] MEDS ORDERED: PRADAXA75 MG ORAL (16:25)
[2018-02-05] MEDS ORDERED: COREG12.5 MG ORAL (16:25)
[2018-02-05] MEDS ORDERED: FLOMAX0.4 MG ORAL (16:25)
--- NOTE | 2018-02-05 19:42 | Pulmonology Progress Note ---
Assessment/Plan Problems: (1) Infection due to ESBL-producing Klebsiella pneumoniae (2) UTI (urinary tract infection) (3) Acute end-stage systolic heart failure (4) EF 30% (5) ATN (acute tubular necrosis) (6) Severe protein-calorie malnutrition Assessment/Plan no new complains creatinine stable, check electrolytes. finishing abx afebrile, wbc normal check ESR, CRP check cultures symptomatic treatment Subjective ROS Limited/Unobtainable: No Constitutional: Reports: no symptoms HEENT: Repors: no symptoms Respiratory: Reports: no symptoms Allergies: Coded Allergies: No Known Allergies (Unverified , 09/27/15) Objective Last 24 Hour Vital Signs Date Time Temp Pulse Resp B/P (MAP) Pulse Ox O2 Delivery O2 Flow Rate FiO2 02/05/18 16:13 97.0 63 18 136/64 100 Room Air 97.0 02/05/18 11:39 98.8 82 17 130/71 98 Room Air 98.8 02/05/18 09:11 139/60 02/05/18 09:11 63 139/60 02/05/18 08:00 98.9 63 18 139/60 100 Room Air 98.9 02/05/18 04:01 Room Air 02/05/18 04:00 98.3 61 20 102/56 95 98.3 02/05/18 00:00 98.8 62 20 114/56 98 98.8 02/04/18 21:45 73 130/54 02/04/18 20:00 98.3 73 20 130/54 97 98.3 Intake and Output 02/04/18 02/05/18 19:00 07:00 Intake Total 775 ml Output Total 300 ml 400 ml Balance 475 ml -400 ml Intake Oral 720 ml IV Total 55 ml Output Urine Total 300 ml 400 ml # Voids 3 Objective General Appearance: cachetic Lines, tubes and drains: peripheral HEENT: normocephalic, atraumatic Neck: non-tender, normal alignment Respiratory/Chest: chest wall non-tender, lungs clear Cardiovascular/Chest: normal peripheral pulses, regular rhythm, regularly irregular Abdomen: normal bowel sounds, non tender, soft Extremities: normal range of motion, normal inspection Eileen Reyna MD Feb 05, 2018 19:42
--- NOTE | 2018-02-05 21:31 | Cardiology Progress Note ---
Assessment/Plan Assessment/Plan 1. Acute systolic and diastolic CHF, LVEF at 35%, continue coreg and Imdur. Other meds for heart failure on hold temporarily due to worsening of renal failure. Creatinine has dropped to 2.2. 2. Slight elevation of troponin not typical for ACS, most likely due to heart failure. Recent nuclear stress test has shown no myocardial wall ischemia but myocardial infarction in the inferior wall. 3. Dual-chamber pacemaker implantation, Medtronic, implanted in 2017, appears to be functioning normally. 4. Permanent atrial fibrillation, continue Pradaxa. 5. History of coronary artery disease, no prior hx of cardiac cath per patient. 6. ALEXANDRE, creat downtrending, off lasix and ACEI for now. Subjective Subjective No cardiac events. No chest pain or SOB at this time. Objective Last 24 Hour Vital Signs Date Time Temp Pulse Resp B/P (MAP) Pulse Ox O2 Delivery O2 Flow Rate FiO2 02/05/18 16:13 97.0 63 18 136/64 100 Room Air 97.0 02/05/18 11:39 98.8 82 17 130/71 98 Room Air 98.8 02/05/18 09:11 139/60 02/05/18 09:11 63 139/60 02/05/18 08:00 98.9 63 18 139/60 100 Room Air 98.9 02/05/18 04:01 Room Air 02/05/18 04:00 98.3 61 20 102/56 95 98.3 02/05/18 00:00 98.8 62 20 114/56 98 98.8 02/04/18 21:45 73 130/54 Intake and Output 02/04/18 02/05/18 19:00 07:00 Intake Total 775 ml Output Total 300 ml 400 ml Balance 475 ml -400 ml Intake Oral 720 ml IV Total 55 ml Output Urine Total 300 ml 400 ml # Voids 3 2D Echo: EF 35%, Global HK, HAMILTON,elevated RAP,Mild AR/MR,Grade II LVDD,RVSP 41 mmHg Objective HEENT: Atraumatic and normocephalic. ENT, pupils are equal, round, and reactive to light and accommodation. There is periorbital edema. Conjunctival pallor. NECK: JVP is less than 5 cm. No carotid bruit. Carotid upstrokes 2+ bilaterally. CARDIOVASCULAR: Normal S1 and S2. Regular rate and rhythm. There is 2/6 mid systolic murmur at the left sternal border. PMI is at fourth intercostal space at the midclavicular line. LUNGS: Clear to auscultation bilaterally. ABDOMEN: Soft, nontender, and nondistended. No hepatosplenomegaly. Positive bowel sounds. EXTREMITIES: No evidence of edema, clubbing, or cyanosis. MALINDA FREY Feb 05, 2018 21:31
--- NOTE | 2018-02-07 13:00 | Discharge Summary ---
Discharge Summary Discharge Summary Discharge Summary DATE OF ADMISSION: 01/25/2018 DATE OF DISCHARGE: 02/05/2018 CONSULTANTS: Dr. Eileen Sotelo BRIEF HOSPITAL COURSE: Patient is an 87-year-old male who presented with chief complaint cough " I passed out". He has history of atrial fibrillation and pacemaker and noted to be falling several times over the last month. Symptoms started on the day prior to admission, he was sitting and suddenly stood up he felt the room spinning and patient passed out. Unknown how long the patient was out. He was transferred to [place] emergency room. Chest medical history significant for coronary artery disease status post myocardial infarction 5 years ago, cerebrovascular accident, hypertension, atrial fibrillation. On evaluation at ED, EKG did not show any signs of acute injury with normal paced rhythm. Chest x-ray showed pacemaker on the left side. CT scan of the head showed a large old right frontoparietal infarct without bleed or mass effect. Blood work showed renal insufficiency, creatinine was elevated to 1.9, BUN 47. Initial troponin was 0.019. BNP elevated to 12,654. Urinalysis with 10-15 WBC, 0-2 RBC, 2+ leukocyte esterase, positive nitrite. He was admitted for evaluation of syncope, renal insufficiency and possible UTI. He was given empirically Rocephin in ED, urine culture was growing Klebsiella ESBL. He was given ertapenem. He underwent cardiac evaluation, he was continued on Pradaxa. Echocardiogram showed EF 30%. There was mild aortic and mitral regurgitation, peak right ventricular systolic pressure of 41 consistent with mild pulmonary hypertension. He was given Lasix, lisinopril, Coreg and Imdur. Lasix and lisinopril was placed on hold due to worsened creatinine levels. Renal ultrasound was negative for hydronephrosis or renal stones. He had slight elevation in troponin which is not typical for ACS, most likely due to heart failure. He had a recent stress test that has showed no myocardial wall ischemia with scar/myocardial infarction in the inferior wall. He had a Medtronic pacemaker which appeared to be functioning normally. Creatinine eventually improved. Blood culture did not isolate any growth, influenza screen was negative, C. difficile was negative. He completed antibiotic treatment with ertapenem and was cleared for discharge off antibiotics. He was discharged home with home health. FINAL DIAGNOSES: Acute systolic and diastolic congestive heart failure and exacerbation Slight elevation of troponin not typical for ACS, most likely due to heart failure Dual-chamber pacemaker implantation with Medtronic functioning normally Permanent atrial fibrillation on Pradaxa History of coronary artery disease Acute kidney injury Urinary tract infection with ESBL Klebsiella Severe protein calorie malnutrition Cardiomyopathy Anemia Hypertension DISPOSITION: Patient was discharged home with home health DISCHARGE MEDICATIONS: Refer to Discharge Medication List. DISCHARGE INSTRUCTIONS: Follow up with PCP in a week. I have been assigned to dictate discharge summary on this account, and I was not involved in the patient's management. Shaniqua Waters NP Feb 07, 2018 13:00
== END 2018-02-05 18:34 | disposition home health service (06) | DRG 194 ==
LOC: EDUNIT# 13:56 → EDBD 13:56 → EMR 14:43 → 2E 15:50 → EDBEDREQ 16:14 → 2E 18:54 → 4E 01-28 18:25
DX: I11.0 Hypertensive heart disease with heart failure (principal); N17.0 Acute kidney failure with tubular necrosis; E43 Unspecified severe protein-calorie malnutrition; G30.9 Alzheimer's disease, unspecified; N39.0 Urinary tract infection, site not specified; I48.2 Chronic atrial fibrillation; I42.9 Cardiomyopathy, unspecified; F02.80 Dementia in other diseases classified elsewhere, unspecified severity, without behavioral disturbance, psychotic disturbance, mood disturbance, and anxiety; I50.41 Acute combined systolic (congestive) and diastolic (congestive) heart failure; B96.1 Klebsiella pneumoniae [K. pneumoniae] as the cause of diseases classified elsewhere; Z16.12 Extended spectrum beta lactamase (ESBL) resistance; Z79.01 Long term (current) use of anticoagulants; Z95.0 Presence of cardiac pacemaker; I25.10 Atherosclerotic heart disease of native coronary artery without angina pectoris; I25.2 Old myocardial infarction; Z87.891 Personal history of nicotine dependence; N40.0 Benign prostatic hyperplasia without lower urinary tract symptoms; D64.9 Anemia, unspecified
CPT/HCPCS: 36415; 70450; 71045; 76770; 80048; 80053; 80061; 80150; 81001; 81003; 82550; 82553; 82607; 82728; 82746; 82977; 83036; 83605; 83735; 83880; 84100; 84300; 84443; 84484; 84550; 85025; 85610; 85651; 85730; 86140; 86710; 87040; 87086; 87181; 87324; 93005; 93306; 93880; 99285

== ENCOUNTER 2018-08-13 16:41 | Outpatient (CLI) | payer MEDICARE, OTHER ==
[~2018-08-13 16:41] MED LIST changes: +COREG12.5 MG ORAL; +FLOMAX0.4 MG ORAL; +MECLIZINE HCL12.5 MG ORAL
--- NOTE | 2018-08-14 12:55 | Diagnostic Imaging Report ---
Indication: Pain, status post fall Technique: 2 views of the left ribs Comparison: none Findings: There is a pacemaker power pack which may obscure pathology. No definite acute fractures. No pneumothorax. Impression: Negative
--- NOTE | 2018-08-14 12:57 | Diagnostic Imaging Report ---
Indication: Back pain Technique: 2 views of the lumbar spine Comparison: None Findings: There is mild anterior wedging of the L1 vertebral body. This could be developmental or on the basis of degenerative remodeling, but could also represent a mild age-indeterminate compression fracture. The remaining vertebral body heights are preserved. There is mild degenerative disc disease at L5-S1, and degenerative proliferative changes at multiple levels. No other acute fractures. No dislocations. The pedicles are intact. The extra spinal soft tissues are unremarkable. There is bilateral hip degeneration Impression:Mild wedging of the L1 vertebral body, possibly developmental or on the basis of degenerative remodeling, but could also represent age indeterminate compression fracture. Consider MRI if clinically indicated Degenerative changes, as described
== END 2018-08-13 18:41 | disposition home or self-care (01) ==
LOC: RAD 16:41
DX: M51.37 Other intervertebral disc degeneration, lumbosacral region (principal); R07.81 Pleurodynia; Z95.0 Presence of cardiac pacemaker
CPT/HCPCS: 72020

== ENCOUNTER 2019-02-14 13:41 | Inpatient (IN) | payer OTHER, MEDICARE ==
[~2019-02-14] VITALS: Ht 162.6 cm; Wt 71.2 kg
--- NOTE | 2019-02-14 14:13 | NUR ---
ED Nurse Note: patient went down for CT
[2019-02-14 14:18] LABS: BASOPHILS % (AUTO) 1.3 % (0.0-2.0); EOSINOPHILS % (AUTO) 2.4 % (0.0-3.0); HEMATOCRIT 30.2 % (42.0-52.0); HEMOGLOBIN 9.5 G/DL (14.2-18.0); LYMPHOCYTES % (AUTO) 23.8 % (20.0-45.0); MEAN CORPUSCULAR VOLUME 97 FL (80-99); MONOCYTES % (AUTO) 9.5 % (1.0-10.0); NEUTROPHILS % (AUTO) 63.1 % (45.0-75.0); PLATELET COUNT 203 K/UL (150-450); RED BLOOD COUNT 3.13 M/UL (4.70-6.10); RED CELL DISTRIBUTION WIDTH 14.2 % (11.6-14.8); WHITE BLOOD COUNT 5.9 K/UL (4.8-10.8)
--- NOTE | 2019-02-14 14:22 | Emergency Room Report ---
History of Present Illness General Chief Complaint: Altered Mental Status Source: Friend Present Illness HPI 88-year-old male presents ED for evaluation. Brought in by EMS in mental status. Friend told EMS that patient has been more altered than baseline for the last month. Upon arrival patient is lethargic not answering questions. No Fall or injury today. No signs of distress upon arrival. Unable to answer any additional questions at this time no reported fevers or chills. No reported chest pain or shortness of breath. No other aggravating relieving factors. No other associated symptoms Allergies: Coded Allergies: FUROSEMIDE (Unverified Allergy, Unknown, 02/14/19) MECLIZINE (Unverified Allergy, Unknown, 02/14/19) Patient History Past Medical History: HTN, CAD, CVA/TIA Past Surgical History: pacemaker Pertinent Family History: none Social History: Denies: smoking, alcohol use, drug use Immunizations: UTD Reviewed Nursing Documentation: PMH: Agreed; PSxH: Agreed Nursing Documentation-PMH Hx Cardiac Problems: Yes Hx Hypertension: Yes Hx Pacemaker: Yes - CHRISTIE Hx Asthma: No Hx COPD: No Hx Diabetes: No Hx Cancer: No Hx Gastrointestinal Problems: No Hx Dialysis: No Hx Neurological Problems: Yes Hx Cerebrovascular Accident: Yes Hx Seizures: No Hx Dizziness: Yes Hx Syncope: Yes Review of Systems All Other Systems: limited Physical Exam Vital Signs Date Time Temp Pulse Resp B/P (MAP) Pulse Ox O2 Delivery O2 Flow Rate FiO2 02/14/19 13:31 98.6 112 16 140/79 99 Room Air Sp02 EP Interpretation: reviewed, normal General Appearance: no apparent distress, lethargic Head: normocephalic, atraumatic Eyes: bilateral eye normal inspection, bilateral eye other - pinpoint pupils ENT: hearing grossly normal, normal pharynx, no angioedema, normal voice Neck: full range of motion, supple/symm/no masses Respiratory: chest non-tender, lungs clear, normal breath sounds, speaking full sentences Cardiovascular #1: regular rate, rhythm, no edema Cardiovascular #2: 2+ carotid (R), 2+ carotid (L), 2+ radial (R), 2+ radial (L) , 2+ dorsalis pedis (R), 2+ dorsalis pedis (L) Gastrointestinal: normal bowel sounds, non tender, soft, non-distended, no guarding, no rebound Rectal: deferred Genitourinary: normal inspection, no CVA tenderness Musculoskeletal: back normal, gait/station normal, normal range of motion, non- tender Neurologic: other - lethargic Psychiatric: other - lethargic Reflexes: 3+ bicep (R), 3+ bicep (L), 3+ tricep (R), 3+ tricep (L), 3+ knee (R) , 3+ knee (L) Skin: normal color, no rash, warm/dry, well hydrated Lymphatic: no adenopathy Medical Decision Making Diagnostic Impression: Primary Impression: Altered mental status Qualified Codes: R41.82 - Altered mental status, unspecified Additional Impression: CKD (chronic kidney disease) Qualified Codes: N18.9 - Chronic kidney disease, unspecified ER Course Hospital Course 88-year-old male presenting to ED with generalized weakness, weakness Differential diagnoses include: Pneumonia, UTI, sepsis, dehydration, OH/ unstable angina Clinical course Patient placed on stretcher. On cardiac rehabilitation program director with stable vitals are ED course. After initial history and physical, I ordered labs, IV fluids, EKG, chest x-ray, blood cultures, UA. Labs - BUN/Cr elevated, no leukocytosis, troponins 0.06, UA negative EKG - paced rhythm, no acute ischemic changes interpreted by me CXR - cardiomegaly, R sided congestion/infiltrate CT head - chronic changes, no acute process Abx given. IVFs given. Case discussed with Dr Denton and they agreed to admit patient to their service for further care and support I feel this is a highly complex case requiring extensive working including EKG/ Rhythm strip, Xray/CT/US, Blood/urine lab work, repeat exams while in ED, and administration of strong opiates/narcotics for pain control, admission to hospital or close patient follow up. Diagnosis - AMS, CKD Patient admitted to telemetry in serious condition Labs Test 02/14/19 14:08 02/14/19 14:23 02/14/19 15:22 White Blood Count 5.9 K/UL (4.8-10.8) Red Blood Count 3.13 M/UL (4.70-6.10) Hemoglobin 9.5 G/DL (14.2-18.0) Hematocrit 30.2 % (42.0-52.0) Mean Corpuscular Volume 97 FL (80-99) Mean Corpuscular Hemoglobin 30.4 PG (27.0-31.0) Mean Corpuscular Hemoglobin Concent 31.4 G/DL (32.0-36.0) Red Cell Distribution Width 14.2 % (11.6-14.8) Platelet Count 203 K/UL (150-450) Mean Platelet Volume 5.9 FL (6.5-10.1) Neutrophils (%) (Auto) 63.1 % (45.0-75.0) Lymphocytes (%) (Auto) 23.8 % (20.0-45.0) Monocytes (%) (Auto) 9.5 % (1.0-10.0) Eosinophils (%) (Auto) 2.4 % (0.0-3.0) Basophils (%) (Auto) 1.3 % (0.0-2.0) Sodium Level 138 MMOL/L (136-145) Potassium Level 4.7 MMOL/L (3.5-5.1) Chloride Level 104 MMOL/L (98-107) Carbon Dioxide Level 28 MMOL/L (21-32) Anion Gap 6 mmol/L (5-15) Blood Urea Nitrogen 45 mg/dL (7-18) Creatinine 2.1 MG/DL (0.55-1.30) Estimat Glomerular Filtration Rate mL/min (>60) Glucose Level 117 MG/DL (74-106) Calcium Level 8.1 MG/DL (8.5-10.1) Total Bilirubin 0.4 MG/DL (0.2-1.0) Aspartate Amino Transf (AST/SGOT) 29 U/L (15-37) Alanine Aminotransferase (ALT/SGPT) 27 U/L (12-78) Alkaline Phosphatase 170 U/L (46-116) Total Creatine Kinase 37 U/L (26-308) Creatine Kinase MB 0.6 NG/ML (0.0-3.6) Creatine Kinase MB Relative Index 1.6 Troponin I 0.062 ng/mL (0.000-0.056) Total Protein 7.3 G/DL (6.4-8.2) Albumin 3.1 G/DL (3.4-5.0) Globulin 4.2 g/dL Albumin/Globulin Ratio 0.7 (1.0-2.7) Lipase 178 U/L (73-393) Urine Color Pale yellow Urine Appearance Clear Urine pH 5 (4.5-8.0) Urine Specific Thornton 1.010 (1.005-1.035) Urine Protein Negative (NEGATIVE) Urine Glucose (UA) Negative (NEGATIVE) Urine Ketones Negative (NEGATIVE) Urine Blood 1+ (NEGATIVE) Urine Nitrite Negative (NEGATIVE) Urine Bilirubin Negative (NEGATIVE) Urine Urobilinogen Normal MG/DL (0.0-1.0) Urine Leukocyte Esterase 1+ (NEGATIVE) Urine RBC 2-4 /HPF (0 - 0) Urine WBC 2-4 /HPF (0 - 0) Urine Squamous Epithelial Cells Few /LPF (NONE/OCC) Urine Bacteria Occasional /HPF (NONE) Lactic Acid Level 0.80 mmol/L (0.4-2.0) Arterial Blood pH 7.422 (7.350-7.450) Arterial Blood Partial Pressure CO2 37.3 mmHg (35.0-45.0) Arterial Blood Partial Pressure O2 89.0 mmHg (75.0-100.0) Arterial Blood HCO3 23.8 mmol/L (22.0-26.0) Arterial Blood Oxygen Saturation 96.2 % (95-100) Arterial Blood Base Excess -0.5 (-2-2) Nito Test Positive EKG Diagnostic Results Rate: bradycardiac Rhythm: other - paced ST Segments: no acute changes ASA given to the pt in ED: No Rhythm Strip Diag. Results EP Interpretation: yes Rhythm: no PVC's, no ectopy Chest X-Ray Diagnostic Results Chest X-Ray Diagnostic Results : Chest X-Ray Ordered: Yes # of Views/Limited/Complete: 1 View Indication: Other - ams EP Interpretation: Yes Interpretation: no pneumothorax, other - increased R side congestion/ hazziness Impression: Other - chf/pnuemonia Electronically Signed by: Electronically signed by Jose Guidry MD Last Vital Signs Date Time Temp Pulse Resp B/P (MAP) Pulse Ox O2 Delivery O2 Flow Rate FiO2 02/14/19 13:31 98.6 112 16 140/79 99 Room Air Status: improved Disposition: ADMITTED INPATIENT Condition: Serious Referrals: NOT CHOSEN IPA/,REFERRING (PCP) Jose Guidry MD Feb 14, 2019 14:22
[2019-02-14 14:32] LABS: ANION GAP 6 mmol/L (5-15); BLOOD UREA NITROGEN 45 mg/dL (7-18); CALCIUM 8.1 MG/DL (8.5-10.1); CARBON DIOXIDE 28 MMOL/L (21-32); CHLORIDE 104 MMOL/L (98-107); CREATININE 2.1 MG/DL (0.55-1.30); POTASSIUM 4.7 MMOL/L (3.5-5.1); SODIUM 138 MMOL/L (136-145)
--- NOTE | 2019-02-14 14:34 | Diagnostic Imaging Report ---
Indication: Shortness of breath Technique: XRAY Chest 1v Comparison: 01/30/2018 Findings: Heart is enlarged but stable in size compared to the prior exam. Midsternal contours are sharp. There is a left-sided dual-lead pacer is unchanged in position. The pulmonary vascularity is hazy and somewhat indistinct. No definite pneumothorax or pleural effusion is appreciated. There are degenerative changes in the spine. No definite acute osseous abnormality. Impression: Cardiomegaly with indwelling pacemaker. Dominant and somewhat indistinct pulmonary vasculature suggestive of mild congestive changes/CHF. No appreciable pleural effusion or pneumothorax.
[2019-02-14 14:39] VITALS: BP 131/71
[2019-02-14 14:39] LABS: APPEARANCE,URINE CLEAR; BILIRUBIN, URINE NEGATIVE (NEGATIVE); COLOR,URINE PALE YELLOW; GLUCOSE, URINE (UA) NEGATIVE (NEGATIVE); KETONES,URINE NEGATIVE (NEGATIVE); LEUKOCYTE ESTERASE ,URINE 1+ (NEGATIVE); NITRITE,URINE NEGATIVE (NEGATIVE); PH,URINE 5 (4.5-8.0); PROTEIN,URINE NEGATIVE (NEGATIVE); UROBILINOGEN,URINE NORMAL MG/DL (0.0-1.0)
--- NOTE | 2019-02-14 14:42 | Diagnostic Imaging Report ---
Indication: Altered mental status Technique: Continuous helical CT scanning of the head was performed utilizing automated exposure control without intravenous contrast material. Axial and coronal reconstructions were obtained. Comparison: 01/25/2018 CT dose: Total DLP 1337.38 mGycm; CTDI vol 70.38 mGy Findings: There is no acute intracranial hemorrhage, mass effect, or shift of midline structures.. There is change encephalomalacia the right frontal-parietal region likely representing area of chronic infarct. There are bilateral basal ganglia calcifications. The ventricles, cisterns and sulci are prominent consistent with atrophy. Periventricular hypoattenuation is seen, a nonspecific finding. Atherosclerotic vascular calcifications are noted. Mastoid air cells and paranasal sinuses are clear. There is no depressed calvarial fracture. No focal lesion of the scalp is appreciated. IMPRESSION: No evidence of acute intracranial hemorrhage, mass effect or cortical edema. Unchanged chronic infarct in the right frontoparietal region. Atrophy and nonspecific periventricular hypoattenuation suggestive of chronic ischemic microvascular changes. The CT scanner at [facility] is accredited by the [employer] and the scans are performed using protocols designed to limit radiation exposure to as low as reasonably achievable to attain images of sufficient resolution adequate for diagnostic evaluation.
[2019-02-14 14:46] LABS: ALANINE AMINOTRANSFERASE 27 U/L (12-78); ALBUMIN 3.1 G/DL (3.4-5.0); ALBUMIN/GLOBULIN RATIO 0.7 (1.0-2.7); ALKALINE PHOSPHATASE 170 U/L (46-116); ASPARTATE AMINO TRANSFERASE 29 U/L (15-37); BILIRUBIN,TOTAL 0.4 MG/DL (0.2-1.0); CKMB 0.6 NG/ML (0.0-3.6); CREATINE KINASE 37 U/L (26-308)
[2019-02-14] MEDS ORDERED: UNOBMED (15:30)
--- NOTE | 2019-02-14 16:21 | NUR ---
ED Nurse Note: Dr. Clark by the bedside
[2019-02-14] MEDS ORDERED: Flonase Nasal Inhaler 16gm NASAL PRN (16:45)
[2019-02-14] MEDS ORDERED: traMADol 50mg tab ORAL PRN (16:45)
--- NOTE | 2019-02-14 16:45 | History and Physical ---
History of Present Illness General Date patient seen: Feb 14, 2019 Time patient seen: 16:30 Reason for Hospitalization: Altered Mental Status Present Illness HPI 88 year old man with chronic sCHF with EF of 18%, secondary to ICM, moderate pulmonary hypertension, MR, TR, atrial fibrillation on Pradaxa, s/p PPM, HTN, PM , CKD IV, RBBB, dementia who comes in to the ED with daughter with complaints of cough and, lethargy and weakness. Patient is a limited historian due to his dementia and encephalopathy. Spoke with his daughter at the bedside who tells me that patient was admitted to [facility] last month for 5 days for respiratory problems, subsequently was discharged to [facility] but was only there for 1 day as patient's . Patient has been at baseline mentation over the past month but today he was noted by the daughter to be more sleepy and drowsy, had difficulty waking him up from his nap todaty. She reports that he does not know where he is (thinks he is at home and that it is nighttime). She is unaware of any fever, chills, flu-like symptoms. No signficant chest pain or dyspnea. In ED initial investigations including labs, UA, EKG, head CT and CXR did not show a source for his encephalopathy. Troponin was noted to be mildly elevated. Social History, patient is a former smoker and alcoholic Family History, no significant premature CAD Allergies: Coded Allergies: No Known Allergies (Unverified , 02/14/19) Medication History Scheduled Albuterol Sulfate (Ventolin Hfa), 1 PUFF INH EVERY 6 HOURS, (Reported) Amoxicillin* (Amoxil*), 500 MG ORAL THREE TIMES A DAY Atorvastatin Calcium* (Lipitor*), 10 MG ORAL BEDTIME, (Reported) Carvedilol (Coreg), 12.5 MG ORAL EVERY 12 HOURS Dabigatran Etexilate Mesylate (Pradaxa), 75 MG ORAL EVERY 12 HOURS Donepezil Hcl* (Donepezil Hcl*), 5 MG ORAL DAILY, (Reported) Escitalopram Oxalate* (Lexapro*), 10 MG ORAL DAILY, (Reported) Ezetimibe (Zetia*), 10 MG ORAL DAILY, (Reported) Febuxostat (Uloric), 40 MG ORAL DAILY, (Reported) Furosemide* (Lasix*), 20 MG ORAL Mo, (Reported) Furosemide* (Lasix*), Unknown Dose ORAL DAILY, (Reported) Levofloxacin (Levofloxacin*), 250 MG ORAL DAILY, (Reported) Loratadine (Loratadine), 10 MG ORAL DAILY, (Reported) Losartan Potassium (Losartan Potassium), 50 MG ORAL DAILY, (Reported) Meclizine Hcl* (Meclizine*), 25 MG ORAL TWICE A DAY, (Reported) Meclizine Hcl* (Meclizine*), Unknown Dose ORAL THREE TIMES A DAY, (Reported) Omeprazole (Omeprazole), 20 MG ORAL DAILY, (Reported) Potassium Chloride (Klor-Con 10), 10 MEQ ORAL q sunday, (Reported) Silodosin (Rapaflo), 8 MG ORAL DAILY, (Reported) Tamsulosin HCl (Flomax), 0.4 MG ORAL BEDTIME Scheduled PRN Fluticasone Propionate* (Fluticasone Propionate*), 50 MCG NASAL BID PRN, ( Reported) Nitroglycerin (Nitrostat), 0.4 MG SL q 5 mins x3 PRN, (Reported) Tramadol Hcl* (Ultram*), 50 MG ORAL Q6H PRN for For Pain, (Reported) Miscellaneous Medications Furosemide* (Lasix*), 20 MG ORAL, (Reported) Unable to Obtain Medications (Unable To Obtain Meds), (Reported) Patient History Healthcare decision maker Resuscitation status Advanced Directive on File Review of Systems ROS Narrative Unable to obtain due to dementia and encephalopathy Physical Exam General Appearance: no apparent distress, alert HEENT: normocephalic, atraumatic, anicteric Neck: non-tender, normal alignment, supple, normal inspection Respiratory/Chest: chest wall non-tender, lungs clear, other - Mild bilateral expiratory wheeze Cardiovascular/Chest: normal peripheral pulses, normal rate, no JVD, irregularly irregular Abdomen: normal bowel sounds, non tender, soft, no organomegaly Extremities: non-tender, normal inspection, no calf tenderness Skin Exam: normal pigmentation, warm/dry, no diaphoresis Neurologic: ad compositor II-XII grossly normal, no motor/sensory deficits, alert, responsive Last 24 Hour Vital Signs Date Time Temp Pulse Resp B/P (MAP) Pulse Ox O2 Delivery O2 Flow Rate FiO2 02/14/19 14:40 60 17 Room Air 02/14/19 14:39 98.6 60 17 131/71 100 Room Air 02/14/19 13:31 98.6 112 16 140/79 99 Room Air Laboratory Tests Test 02/14/19 14:08 02/14/19 14:23 02/14/19 15:22 White Blood Count 5.9 K/UL (4.8-10.8) Red Blood Count 3.13 M/UL (4.70-6.10) L Hemoglobin 9.5 G/DL (14.2-18.0) L Hematocrit 30.2 % (42.0-52.0) L Mean Corpuscular Volume 97 FL (80-99) Mean Corpuscular Hemoglobin 30.4 PG (27.0-31.0) Mean Corpuscular Hemoglobin Concent 31.4 G/DL (32.0-36.0) L Red Cell Distribution Width 14.2 % (11.6-14.8) Platelet Count 203 K/UL (150-450) Mean Platelet Volume 5.9 FL (6.5-10.1) L Neutrophils (%) (Auto) 63.1 % (45.0-75.0) Lymphocytes (%) (Auto) 23.8 % (20.0-45.0) Monocytes (%) (Auto) 9.5 % (1.0-10.0) Eosinophils (%) (Auto) 2.4 % (0.0-3.0) Basophils (%) (Auto) 1.3 % (0.0-2.0) Sodium Level 138 MMOL/L (136-145) Potassium Level 4.7 MMOL/L (3.5-5.1) Chloride Level 104 MMOL/L (98-107) Carbon Dioxide Level 28 MMOL/L (21-32) Anion Gap 6 mmol/L (5-15) Blood Urea Nitrogen 45 mg/dL (7-18) H Creatinine 2.1 MG/DL (0.55-1.30) H Estimat Glomerular Filtration Rate mL/min (>60) Glucose Level 117 MG/DL (74-106) H Calcium Level 8.1 MG/DL (8.5-10.1) L Total Bilirubin 0.4 MG/DL (0.2-1.0) Aspartate Amino Transf (AST/SGOT) 29 U/L (15-37) Alanine Aminotransferase (ALT/SGPT) 27 U/L (12-78) Alkaline Phosphatase 170 U/L (46-116) H Total Creatine Kinase 37 U/L (26-308) Creatine Kinase MB 0.6 NG/ML (0.0-3.6) Creatine Kinase MB Relative Index 1.6 Troponin I 0.062 ng/mL (0.000-0.056) Total Protein 7.3 G/DL (6.4-8.2) Albumin 3.1 G/DL (3.4-5.0) L Globulin 4.2 g/dL Albumin/Globulin Ratio 0.7 (1.0-2.7) L Lipase 178 U/L (73-393) Urine Color Pale yellow Urine Appearance Clear Urine pH 5 (4.5-8.0) Urine Specific [place] 1.010 (1.005-1.035) Urine Protein Negative (NEGATIVE) Urine Glucose (UA) Negative (NEGATIVE) Urine Ketones Negative (NEGATIVE) Urine Blood 1+ (NEGATIVE) H Urine Nitrite Negative (NEGATIVE) Urine Bilirubin Negative (NEGATIVE) Urine Urobilinogen Normal MG/DL (0.0-1.0) Urine Leukocyte Esterase 1+ (NEGATIVE) H Urine RBC 2-4 /HPF (0 - 0) H Urine WBC 2-4 /HPF (0 - 0) Urine Squamous Epithelial Cells Few /LPF (NONE/OCC) Urine Bacteria Occasional /HPF (NONE) Lactic Acid Level 0.80 mmol/L (0.4-2.0) Arterial Blood pH 7.422 (7.350-7.450) Arterial Blood Partial Pressure CO2 37.3 mmHg (35.0-45.0) Arterial Blood Partial Pressure O2 89.0 mmHg (75.0-100.0) Arterial Blood HCO3 23.8 mmol/L (22.0-26.0) Arterial Blood Oxygen Saturation 96.2 % (95-100) Arterial Blood Base Excess -0.5 (-2-2) Nito Test Positive Height (Feet): 5 Height (Inches): 8.00 Weight (Pounds): 170 Assessment/Plan Problem List: (1) Acute metabolic encephalopathy ICD Codes: G93.41 - Metabolic encephalopathy SNOMED: [id number], [id number] Assessment: 88 year old man with history of dementia, CKD III, chronic sCHF, atrial fibrillation on Pradaxa,s/p PPM, mod pulmonary HTN who comes in from home with weakness and confusion. #Acute metabolic encephalopathy, unclear etiology at this time #Dementia -admit to medical service -supportive care -fall and aspiration precautions -frequent orienting -avoid sedative-hypnotics and reversal of sleep-wake cycle -Neurology eval Dr Vega #Chronic systolic and diastolic CHF, not in acute exacerbation #NSTEMI, likely due to demand ischemia #Atrial fibrillation #HTN #Pulmonary HTN -admit to telemetry unit -cardiac monitoring -check serial cardiac enzymes -continue Lasix, losartan, Coreg, Lipitor. -add ASA 81 -consult Cardiology, Dr. Lozano #CKD IV, baseline creatinine ~2.0-2.2 -continue to monitor renal function -avoid nephrotoxic agents #BPH -continue Flomax ~~~~~~~~~~~~~~~~~~~~~~~~~~~~~~~~~Hospital Classification Declaration ~~INPATIENT~level of care is warranted for this patient because patient is a 88 year old man with multiple medical problems who presents with suspicion acute encephalopathy. Patient is at high risk for complications related to encephalopathy and possible undiagnosed infectious process. Plan of care/ treatment include neurological and cardiology evaluation Disposition:~Once the patient is stable to leave the hospital, I anticipate the patient will likely be discharged to the following environment: Home Estimated discharge date: MIPS (Merit-based Incentive Payment System) Applicable CPT: 21656, 64756 ~CHECK ALL THAT ARE MET: ~~Measure #5 (CHF): All ages. Prescribe EDWARDO/ARB upon discharge for patients with left ventricular systolic dysfunction. If not, the reason is clearly documented in the medical chart. ~~Measure #8 (CHF):~All ages. Prescribe a beta natalee upon discharge for patients with left ventricular systolic dysfunction. If not, the reason is clearly documented in the medical chart. ~~Measure #47:~~Advance care plan or surrogate decision maker documented in the medical record. ~~Measure #130 The provider has documented, updated, or reviewed the patients current medication list and has documented it in the patients note. ~ ~~Measure #374 (All): Send report to referring provider. ~~Measure #407(Sepsis due to MSSA bacteremia): Age 18+~Patient treated with a beta-lactam antibiotic (Nafcillin, Oxacillin or Cefazolin) as definitive therapy. MEDICAL COMPLEXITY High complexity medical decision making (need 2/3 categories) Problem - need 4 points XAcute/new problem with new plan for workup (4 points, 1 max) Acute/new problem without additional workup (3 points, 1 max) Unstable chronic problem actively being managed (2 point each, 2 max) XStable chronic problem actively being managed (1 point each, 2 max) XSelf-limited/transient process (constipation, muscle ache, etc) (1 point each, 2 max) Data - need 4 points XReviewed labs/imaging studies (1 points, 2 max) XIndependent review of imaging (EKG, xrays, etc) (2 points, 2 max) XDiscussed case with consult/other MD/RN (2 points, 2 max) High Risk - qualify if have one of the following: Severe exacerbation of acute problem, acute mental status change, IV narcotics, monitoring drug levels (vancomycin, INR, tacrolimus etc) I spent 70 minutes on this patient's case, and 35 minutes was dedicated to counseling and/or care coordination. Time of note may not reflect time of encounter. Edin Fried MD Feb 14, 2019 16:45
--- NOTE | 2019-02-14 16:54 | NUR ---
ED Nurse Note: 2E called unable to give report to Nathaly, he is unavailable. will call back in 10 minutes
[2019-02-14 16:56] VITALS: BP 131/71
--- NOTE | 2019-02-14 17:24 | NUR ---
ED Nurse Note: Report given to Nathaly GARCIAS patient transferred to without complication. Endorsed all of his belongings to Nathaly GARCIAS, patient has upper/lower dentures in his mouth.
[2019-02-14] MEDS ORDERED: LEXAPRO10 MG ORAL (17:38)
[2019-02-14] MEDS ORDERED: MECLIZINE HCL25 MG ORAL (17:44)
[2019-02-14] MEDS ORDERED: ELIQUIS2.5 MG PO (17:52)
[2019-02-14] MEDS ORDERED: FOLIC ACID1 MG ORAL (17:57)
[2019-02-14] MEDS ORDERED: LOPERAMIDE2 MG PO (17:58)
[2019-02-14] MEDS ORDERED: ZYRTEC10 MG ORAL (17:58)
[2019-02-14] MEDS ORDERED: VITAMIN D250000 UNI1 ORAL (17:59)
[2019-02-14] MEDS ORDERED: FUROSEMIDE20 M1 ORAL (18:01)
[2019-02-14] MEDS ORDERED: ENTRESTO 24 MG1 EACH PO (18:02)
[2019-02-14] MEDS ORDERED: MULTI VITAMIN1 EACH ORAL (18:03)
[2019-02-14] MEDS ORDERED: AFRIN NASAL SPR30 ML NASAL (18:04)
[2019-02-14] MEDS ORDERED: ACETAMINOPHEN325 M1 ORAL (18:06)
[2019-02-14 18:10] VITALS: BP 127/75
--- NOTE | 2019-02-14 18:14 | NUR ---
NURSE NOTES: REPORT RECEIVED FROM SYD. PATIENT IS AWAKE. A/O X 2, NAMIBIAN SPEAKING.ALL BELONGING REVIEWED WITH ER NURSE SYD. CHIEF PROJECTIONIST INITIATED. NO C/O PAIN AND SOB AT THIS TIME. CALL LIGHT WITH IN REACH, BED AT LOWEST POSITION, RAILS UP X 3. DAUGHTER AT BEDSIDE. SKIN INTACT. WILL CONTINUE TO MONITOR.
[2019-02-14] MEDS: Aspirin Baby 81mg ORAL SCH (18:23)
--- NOTE | 2019-02-14 19:21 | NUR ---
HAND-OFF: Report given to Olu GARCIAS.
--- NOTE | 2019-02-14 19:30 | NUR ---
NURSE NOTES: pt in bed, daughter at bedside, pt UPPER SKAGIT, Aox4, Fijian speaking, no acute distress, no c/o pain. safety and fall precautions in place
[2019-02-14 20:00] VITALS: BP 126/61
[2019-02-14] MEDS: Albuterol/Ipratropium 3ml neb HHN PRN (20:09)
[2019-02-14] MEDS: Carvedilol 12.5mg tab ORAL SCH (20:16)
[2019-02-14] MEDS: Docusate 100mg cap ORAL SCH (20:17)
[2019-02-14] MEDS: Heparin 5000 units/ml inj SUBQ SCH (20:20)
[2019-02-14] MEDS ORDERED: Tamsulosin 0.4mg cap ORAL SCH (21:00)
--- NOTE | 2019-02-14 21:59 | Consultation ---
History of Present Illness General Chief Complaint: Altered Mental Status Present Illness Allergies: Coded Allergies: No Known Allergies (Unverified , 02/14/19) Medication History Scheduled Albuterol Sulfate (Ventolin Hfa), 1 PUFF INH EVERY 6 HOURS, (Reported) Apixaban (Eliquis), 2.5 MG PO BID, (Reported) Atorvastatin Calcium* (Lipitor*), 10 MG ORAL BEDTIME, (Reported) Carvedilol (Coreg), 12.5 MG ORAL EVERY 12 HOURS Cetirizine Hcl* (Zyrtec*), 10 MG ORAL DAILY, (Reported) Donepezil Hcl* (Donepezil Hcl*), 5 MG ORAL DAILY, (Reported) Ergocalciferol (Vitamin D2)* (Vitamin D*), 50,000 UNIT ORAL ONCE A WEEK, ( Reported) Escitalopram Oxalate* (Lexapro*), 5 MG ORAL QHS, (Reported) Folic Acid* (Folic Acid*), 1 MG ORAL DAILY, (Reported) Furosemide* (Lasix*), 20 MG ORAL qMON, SUN, SUN, (Reported) Multivitamin (Multi Vitamin Daily), 1 TAB ORAL DAILY, (Reported) Omeprazole (Omeprazole), 20 MG ORAL DAILY, (Reported) Sacubitril/Valsartan (Entresto 24 mg-26 mg Tablet), 1 EACH PO BID, (Reported) Tamsulosin HCl (Flomax), 0.4 MG ORAL BEDTIME Scheduled PRN Acetaminophen* (Acetaminophen 325MG Tablet*), 325 MG ORAL Q4H PRN for For Pain, (Reported) Loperamide Hcl (Loperamide), 2 MG PO for Diarrhea, (Reported) Meclizine Hcl* (Meclizine*), 25 MG ORAL DAILY PRN for for dizziness, (Reported) Miscellaneous Medications Oxymetazoline HCl (Afrin), 2 SPRAY NASAL, (Reported) Patient History Healthcare decision maker N Resuscitation status Full Code Advanced Directive on File Physical Exam Last 24 Hour Vital Signs Date Time Temp Pulse Resp B/P (MAP) Pulse Ox O2 Delivery O2 Flow Rate FiO2 02/14/19 20:16 75 133/85 02/14/19 20:12 59 20 99 Room Air 21 02/14/19 20:06 60 20 99 Room Air 21 02/14/19 20:05 61 20 Room Air 21 02/14/19 18:10 97.2 82 19 127/75 (92) 96 02/14/19 18:03 Room Air 02/14/19 17:22 98.6 64 18 131/71 99 Room Air 21 02/14/19 16:56 98.6 64 18 131/71 99 Room Air 21 02/14/19 14:40 60 17 Room Air 02/14/19 14:39 98.6 60 17 131/71 100 Room Air 02/14/19 13:31 98.6 112 16 140/79 99 Room Air Laboratory Tests Test 02/14/19 14:08 02/14/19 14:23 02/14/19 15:22 White Blood Count 5.9 K/UL (4.8-10.8) Red Blood Count 3.13 M/UL (4.70-6.10) L Hemoglobin 9.5 G/DL (14.2-18.0) L Hematocrit 30.2 % (42.0-52.0) L Mean Corpuscular Volume 97 FL (80-99) Mean Corpuscular Hemoglobin 30.4 PG (27.0-31.0) Mean Corpuscular Hemoglobin Concent 31.4 G/DL (32.0-36.0) L Red Cell Distribution Width 14.2 % (11.6-14.8) Platelet Count 203 K/UL (150-450) Mean Platelet Volume 5.9 FL (6.5-10.1) L Neutrophils (%) (Auto) 63.1 % (45.0-75.0) Lymphocytes (%) (Auto) 23.8 % (20.0-45.0) Monocytes (%) (Auto) 9.5 % (1.0-10.0) Eosinophils (%) (Auto) 2.4 % (0.0-3.0) Basophils (%) (Auto) 1.3 % (0.0-2.0) Sodium Level 138 MMOL/L (136-145) Potassium Level 4.7 MMOL/L (3.5-5.1) Chloride Level 104 MMOL/L (98-107) Carbon Dioxide Level 28 MMOL/L (21-32) Anion Gap 6 mmol/L (5-15) Blood Urea Nitrogen 45 mg/dL (7-18) H Creatinine 2.1 MG/DL (0.55-1.30) H Estimat Glomerular Filtration Rate mL/min (>60) Glucose Level 117 MG/DL (74-106) H Calcium Level 8.1 MG/DL (8.5-10.1) L Total Bilirubin 0.4 MG/DL (0.2-1.0) Aspartate Amino Transf (AST/SGOT) 29 U/L (15-37) Alanine Aminotransferase (ALT/SGPT) 27 U/L (12-78) Alkaline Phosphatase 170 U/L (46-116) H Total Creatine Kinase 37 U/L (26-308) Creatine Kinase MB 0.6 NG/ML (0.0-3.6) Creatine Kinase MB Relative Index 1.6 Troponin I 0.062 ng/mL (0.000-0.056) Total Protein 7.3 G/DL (6.4-8.2) Albumin 3.1 G/DL (3.4-5.0) L Globulin 4.2 g/dL Albumin/Globulin Ratio 0.7 (1.0-2.7) L Lipase 178 U/L (73-393) Urine Color Pale yellow Urine Appearance Clear Urine pH 5 (4.5-8.0) Urine Specific [place] 1.010 (1.005-1.035) Urine Protein Negative (NEGATIVE) Urine Glucose (UA) Negative (NEGATIVE) Urine Ketones Negative (NEGATIVE) Urine Blood 1+ (NEGATIVE) H Urine Nitrite Negative (NEGATIVE) Urine Bilirubin Negative (NEGATIVE) Urine Urobilinogen Normal MG/DL (0.0-1.0) Urine Leukocyte Esterase 1+ (NEGATIVE) H Urine RBC 2-4 /HPF (0 - 0) H Urine WBC 2-4 /HPF (0 - 0) Urine Squamous Epithelial Cells Few /LPF (NONE/OCC) Urine Bacteria Occasional /HPF (NONE) Lactic Acid Level 0.80 mmol/L (0.4-2.0) Arterial Blood pH 7.422 (7.350-7.450) Arterial Blood Partial Pressure CO2 37.3 mmHg (35.0-45.0) Arterial Blood Partial Pressure O2 89.0 mmHg (75.0-100.0) Arterial Blood HCO3 23.8 mmol/L (22.0-26.0) Arterial Blood Oxygen Saturation 96.2 % (95-100) Arterial Blood Base Excess -0.5 (-2-2) Nito Test Positive Height (Feet): 5 Height (Inches): 4.00 Weight (Pounds): 157 Medications Current Medications Medications (Trade) Dose Ordered Sig/Soumya Route PRN Reason Start Time Stop Time Status Last Admin Dose Admin Acetaminophen (Tylenol) 650 mg Q4H PRN ORAL Mild Pain (Pain Scale 1-3) 02/14/19 16:45 03/16/19 16:44 Albuterol/ Ipratropium (Albuterol/ Ipratropium) 3 ml Q6H PRN HHN Shortness of Breath 02/14/19 16:45 02/19/19 16:44 02/14/19 20:09 Aspirin (ASA) 81 mg DAILY ORAL 02/14/19 18:00 03/16/19 17:59 02/14/19 18:23 Atorvastatin Calcium (Lipitor) 10 mg BEDTIME ORAL 02/14/19 21:00 03/16/19 20:59 02/14/19 20:17 Carvedilol (Coreg) 12.5 mg EVERY 12 HOURS ORAL 02/14/19 21:00 03/16/19 20:59 02/14/19 20:16 Dabigatran (Pradaxa) 75 mg EVERY 12 HOURS ORAL 02/14/19 21:00 03/16/19 20:59 02/14/19 21:03 Dextrose (Dextrose 50%) 25 ml Q30M PRN IV Hypoglycemia 02/14/19 16:45 03/16/19 16:44 Dextrose (Dextrose 50%) 50 ml Q30M PRN IV Hypoglycemia 02/14/19 16:45 03/16/19 16:44 Docusate Sodium (Colace) 100 mg EVERY 12 HOURS ORAL 02/14/19 21:00 03/16/19 20:59 02/14/19 20:17 Donepezil HCl (Aricept) 5 mg DAILY ORAL 02/15/19 09:00 03/17/19 08:59 Escitalopram Oxalate (Lexapro) 10 mg DAILY ORAL 02/15/19 09:00 03/17/19 08:59 EZETIMIBE (Zetia) 10 mg DAILY ORAL 02/15/19 09:00 03/17/19 08:59 Fluticasone Propionate (Flonase) 1 spray BIDPRN PRN NASAL allergies 02/14/19 16:45 03/16/19 16:44 Furosemide (Lasix) 20 mg DAILY ORAL 02/15/19 09:00 03/17/19 08:59 Heparin Sodium (Porcine) (Heparin 5000 units/ml) 5,000 units EVERY 12 HOURS SUBQ 02/14/19 21:00 03/16/19 20:59 02/14/19 20:20 Losartan Potassium (Cozaar) 50 mg DAILY ORAL 02/15/19 09:00 03/17/19 08:59 Ondansetron HCl (Zofran) 4 mg Q6H PRN IVP Nausea & Vomiting 02/14/19 16:45 03/16/19 16:44 Tamsulosin HCl (Flomax) 0.4 mg BEDTIME ORAL 02/14/19 21:00 03/16/19 20:59 02/14/19 20:17 Tramadol HCl (Ultram) 50 mg Q6H PRN ORAL For Pain 02/14/19 16:45 02/21/19 16:44 Nancy Kilpatrick N.P. Feb 14, 2019 21:59
[2019-02-15] VITALS: BP 130/84
--- NOTE | 2019-02-15 | NUR ---
NURSE NOTES: pt sleeping, no acute distress noted, safety precautions in place. will continue to monitor.
[2019-02-15] MEDS: Albuterol/Ipratropium 3ml neb HHN PRN ×2 (03:02→08:32)
[2019-02-15 04:00] VITALS: BP 133/85
--- NOTE | 2019-02-15 06:29 | NUR ---
NURSE NOTES: pt remains in stable condition, no acute distress, no change of condition, all needs met during my shift. will endorse pt to incoming nurse.
[2019-02-15 07:19] LABS: BASOPHILS % (AUTO) 0.9 % (0.0-2.0); EOSINOPHILS % (AUTO) 3.6 % (0.0-3.0); HEMATOCRIT 29.3 % (42.0-52.0); HEMOGLOBIN 9.3 G/DL (14.2-18.0); MEAN CORPUSCULAR VOLUME 98 FL (80-99); MONOCYTES % (AUTO) 9.6 % (1.0-10.0); NEUTROPHILS % (AUTO) 62.9 % (45.0-75.0); PLATELET COUNT 182 K/UL (150-450); RED CELL DISTRIBUTION WIDTH 14.2 % (11.6-14.8); WHITE BLOOD COUNT 5.7 K/UL (4.8-10.8)
--- NOTE | 2019-02-15 07:29 | NUR ---
HAND-OFF: Report given to KATERINE Abad.
--- NOTE | 2019-02-15 07:30 | NUR ---
NURSE NOTES: Received report from KATERINE Botello. The patient is alert and awake and is about to have a breakfast. The patient's bed in the lowest position, call light in reach, fall precaution reinforced. Will continue plan of care.
[2019-02-15 07:38] LABS: ALANINE AMINOTRANSFERASE 26 U/L (12-78); ALBUMIN/GLOBULIN RATIO 0.7 (1.0-2.7); ALKALINE PHOSPHATASE 154 U/L (46-116); ANION GAP 7 mmol/L (5-15); ASPARTATE AMINO TRANSFERASE 24 U/L (15-37); BILIRUBIN,TOTAL 0.6 MG/DL (0.2-1.0); BLOOD UREA NITROGEN 43 mg/dL (7-18); CALCIUM 8.1 MG/DL (8.5-10.1); CARBON DIOXIDE 28 MMOL/L (21-32); CHLORIDE 105 MMOL/L (98-107); CREATININE 2.3 MG/DL (0.55-1.30); POTASSIUM 4.5 MMOL/L (3.5-5.1); SODIUM 140 MMOL/L (136-145)
[2019-02-15 08:00] VITALS: BP 136/63
[2019-02-15] MEDS: Docusate 100mg cap ORAL SCH (08:12)
[2019-02-15] MEDS: Aspirin Baby 81mg ORAL SCH (08:12)
[2019-02-15] MEDS: Losartan 50mg tab ORAL SCH (08:12)
[2019-02-15] MEDS: Carvedilol 12.5mg tab ORAL SCH (08:12)
[2019-02-15] MEDS: Heparin 5000 units/ml inj SUBQ SCH ×2 (08:14→20:34)
[2019-02-15] MEDS ORDERED: Donepezil 5mg Tab ORAL SCH (09:00)
[2019-02-15] MEDS ORDERED: FERROUS SULFAT325 MG ORAL (10:39)
[2019-02-15 12:00] VITALS: BP 132/66
[2019-02-15] MEDS ORDERED: guaiFENesin 100mg/5ml Liq ud ORAL PRN ×2 (12:30)
--- NOTE | 2019-02-15 15:27 | Cardiology Report ---
APPROVED REPORT EXAM: Two-dimensional and M-mode echocardiogram with Doppler and color Doppler. INDICATION Congestive Heart Failure M-Mode DIMENSIONS IVSd1.7 (0.7-1.1cm)Left Atrium (MM)4.0 (1.6-4.0cm) LVDd4.3 (3.5-5.6cm)Aortic Root2.9 (2.0-3.7cm) PWd1.1 (0.7-1.1cm)Aortic Cusp Exc.1.7 (1.5-2.0cm) LVDs3.5 (2.5-4.0cm) PWs1.1 cm Technically difficult study due to patients breathing. Study quality precludes accurate assessment of regional wall motion. Global left ventricular hypokinesis. Normal left ventricular chamber size. Left ventricular ejection fraction estimated to be 20-25 %. Mild left ventricular hypertrophy. No evidence of pericardial effusion. Mild bi-atrial enlargement. Right ventricular chamber sizes is within normal limits. Mild focal aortic valve sclerosis with adequate cusp excursion. Thickened mitral valve leaflets with normal excursion. Mild mitral annulus and aortic root calcification. Pulmonic valve not well visualized. Normal tricuspid valve structure. IVC dilated at 2.5 cm without physiological collapse, suggestive of increased RA pressure. A color flow and spectral Doppler study was performed and revealed: Moderate aortic insufficiency. Moderate mitral regurgitation. Mitral inflow indicates increased left atrial pressure, suggestive restrictive pattern (Grade III). Moderate tricuspid regurgitation. Tricuspid systolic velocities suggests peak right ventricular systolic pressure of 62 mmHg, consistent with severe pulmonary hypertension. Severe pulmonic regurgitation present.
[2019-02-15 16:00] VITALS: BP 131/61
--- NOTE | 2019-02-15 16:22 | Neurology Progress Note ---
Interim History Interim History ROS Limited/Unobtainable: No Objective Physical Exam Last Vital Signs Date Time Temp Pulse Resp B/P (MAP) Pulse Ox O2 Delivery O2 Flow Rate FiO2 02/15/19 12:00 97.2 60 18 132/66 (88) 98 02/15/19 09:00 Room Air 02/15/19 08:38 21 Laboratory Tests Test 02/15/19 05:45 White Blood Count 5.7 K/UL (4.8-10.8) Red Blood Count 3.00 M/UL (4.70-6.10) L Hemoglobin 9.3 G/DL (14.2-18.0) L Hematocrit 29.3 % (42.0-52.0) L Mean Corpuscular Volume 98 FL (80-99) Mean Corpuscular Hemoglobin 30.9 PG (27.0-31.0) Mean Corpuscular Hemoglobin Concent 31.6 G/DL (32.0-36.0) L Red Cell Distribution Width 14.2 % (11.6-14.8) Platelet Count 182 K/UL (150-450) Mean Platelet Volume 7.0 FL (6.5-10.1) Neutrophils (%) (Auto) 62.9 % (45.0-75.0) Lymphocytes (%) (Auto) 23.0 % (20.0-45.0) Monocytes (%) (Auto) 9.6 % (1.0-10.0) Eosinophils (%) (Auto) 3.6 % (0.0-3.0) H Basophils (%) (Auto) 0.9 % (0.0-2.0) Sodium Level 140 MMOL/L (136-145) Potassium Level 4.5 MMOL/L (3.5-5.1) Chloride Level 105 MMOL/L (98-107) Carbon Dioxide Level 28 MMOL/L (21-32) Anion Gap 7 mmol/L (5-15) Blood Urea Nitrogen 43 mg/dL (7-18) H Creatinine 2.3 MG/DL (0.55-1.30) H Estimat Glomerular Filtration Rate mL/min (>60) Glucose Level 98 MG/DL (74-106) Calcium Level 8.1 MG/DL (8.5-10.1) L Total Bilirubin 0.6 MG/DL (0.2-1.0) Aspartate Amino Transf (AST/SGOT) 24 U/L (15-37) Alanine Aminotransferase (ALT/SGPT) 26 U/L (12-78) Alkaline Phosphatase 154 U/L (46-116) H Troponin I 0.056 ng/mL (0.000-0.056) Total Protein 7.1 G/DL (6.4-8.2) Albumin 3.0 G/DL (3.4-5.0) L Globulin 4.1 g/dL Albumin/Globulin Ratio 0.7 (1.0-2.7) L Nancy Kilpatrick N.P. Feb 15, 2019 16:22
--- NOTE | 2019-02-15 17:19 | NUR ---
CASE MANAGEMENT: REVIEW BIBA FROM HOME CC: ALOC . WEAKNESS SI: AMS . ACUTE METABOLIC ENCEPHALOPATHY . CKD T 98.2 HR 112 RR 16 BP 140/79 SAT 99% ROOM AIR H/H 9.5/30.2 BUN 45 CR 2.1 ALK PHOS 170 TROPONIN I 0.062 IS: NS IVF BOLUS X1 LEVOFLOXACIN IV X1 PATIENT ADMITTED TO TELEMETRY UNIT 02/14/2019 DCP: PATIENT IS FROM HOME
--- NOTE | 2019-02-15 18:28 | NUR ---
NURSE NOTES: Left VM to Dr. Almeida for notifying Echo, EKG, and Troponin lab result. Waiting for reply for further plan for the patient.
--- NOTE | 2019-02-15 19:10 | NUR ---
NURSE NOTES: Received patient from KATERINE Cota and KATERINE Abad. Will continue plan of care.
--- NOTE | 2019-02-15 19:11 | NUR ---
HAND-OFF: Report given to KATERINE Lau. The patient is stable without acute distress or shortness of breath. Endorsed that needs to get reply about the further care plan after 2D Echo, EKG, and lab. Endorsed plan of care.
--- NOTE | 2019-02-15 19:21 | Consultation ---
Consult Note Consult Note asked to eval for renal failure 88 year old man with history of dementia, CKD III, chronic sCHF, atrial fibrillation on Pradaxa,s/p PPM, mod pulmonary HTN who comes in from home with weakness and confusion. examined discussed with daughter record reviewed Assessment/Plan CKD IV, baseline creatinine ~2.0-2.2 Acute metabolic encephalopathy, unclear etiology at this time Dementia Chronic systolic and diastolic CHF, not in acute exacerbation / Cardiomyopathy NSTEMI, likely due to demand ischemia Atrial fibrillation / Pacemaker HTN Pulmonary HTN BPH Plan: adjust BP meds after load and pre load reduction Anemia rivera lower mind altering meds echo: Global left ventricular hypokinesis. Normal left ventricular chamber size. Left ventricular ejection fraction estimated to be 20-25 %. Mild left ventricular hypertrophy. Robel Novak MD Feb 15, 2019 19:21
[2019-02-15 20:00] VITALS: BP 127/65
--- NOTE | 2019-02-15 20:03 | General Progress Note ---
Assessment/Plan Assessment: Problem List: (1) Acute metabolic encephalopathy ICD Codes: G93.41 - Metabolic encephalopathy SNOMED: 01065191, [id number] Assessment: 88 year old man with history of dementia, CKD III, chronic sCHF, atrial fibrillation on Pradaxa,s/p PPM, mod pulmonary HTN who comes in from home with weakness and confusion. #Acute metabolic encephalopathy, unclear etiology at this time #Dementia -supportive care -fall and aspiration precautions -frequent orienting -avoid sedative-hypnotics and reversal of sleep-wake cycle -Neurology eval Dr Vega #Chronic systolic and diastolic CHF, not in acute exacerbation #NSTEMI, likely due to demand ischemia #Atrial fibrillation #HTN #Pulmonary HTN -Cont telemetry -cardiac monitoring -f/userial cardiac enzymes -continue Lasix, losartan, Coreg, Lipitor. -add ASA 81 -consult Cardiology, Dr. Lozano/Qian #CKD IV, baseline creatinine ~2.0-2.2 -continue to monitor renal function -avoid nephrotoxic agents -Nephrology consultation #BPH -continue Flomax Subjective Date patient seen: Feb 15, 2019 Time patient seen: 08:20 ROS Limited/Unobtainable: No Allergies: Coded Allergies: No Known Allergies (Unverified , 02/14/19) Subjective No acute overnight events, no new complaints. Denies any chest pain or dysnea Objective Last 24 Hour Vital Signs Date Time Temp Pulse Resp B/P (MAP) Pulse Ox O2 Delivery O2 Flow Rate FiO2 02/15/19 18:30 Room Air 02/15/19 16:00 60 02/15/19 16:00 97.6 61 20 131/61 (84) 96 02/15/19 12:00 97.2 60 18 132/66 (88) 98 02/15/19 12:00 62 02/15/19 09:00 Room Air 02/15/19 08:38 66 18 97 Room Air 21 02/15/19 08:30 64 20 99 Room Air 21 02/15/19 08:12 136/63 02/15/19 08:12 62 136/63 02/15/19 08:00 61 02/15/19 08:00 97.6 62 20 136/63 (87) 97 02/15/19 04:00 61 02/15/19 04:00 97.2 78 18 133/85 (101) 96 02/15/19 03:12 62 18 97 Room Air 21 02/15/19 03:02 60 18 96 Room Air 21 02/15/19 00:00 97.6 79 18 130/84 (99) 96 02/15/19 00:00 60 02/14/19 21:00 Room Air 02/14/19 20:16 75 133/85 02/14/19 20:12 59 20 99 Room Air 21 02/14/19 20:06 60 20 99 Room Air 21 02/14/19 20:05 61 20 Room Air 21 Intake and Output 02/14/19 02/15/19 19:00 07:00 Intake Total 240 ml Output Total 300 ml Balance 240 ml -300 ml Intake Oral 240 ml Output Urine Total 300 ml # Voids 1 2 # Bowel Movements 1 Laboratory Tests 02/15/19 05:45: White Blood Count 5.7, Red Blood Count 3.00L, Hemoglobin 9.3L, Hematocrit 29.3L , Mean Corpuscular Volume 98, Mean Corpuscular Hemoglobin 30.9, Mean Corpuscular Hemoglobin Concent 31.6L, Red Cell Distribution Width 14.2, Platelet Count 182, Mean Platelet Volume 7.0, Neutrophils (%) (Auto) 62.9, Lymphocytes (%) (Auto) 23.0, Monocytes (%) (Auto) 9.6, Eosinophils (%) (Auto) 3.6H, Basophils (%) (Auto) 0.9, Sodium Level 140, Potassium Level 4.5, Chloride Level 105, Carbon Dioxide Level 28, Anion Gap 7, Blood Urea Nitrogen 43H, Creatinine 2.3H, Estimat Glomerular Filtration Rate , Glucose Level 98, Calcium Level 8.1L, Total Bilirubin 0.6, Aspartate Amino Transf (AST/SGOT) 24, Alanine Aminotransferase (ALT/SGPT) 26, Alkaline Phosphatase 154H, Troponin I 0.056, Total Protein 7.1, Albumin 3.0L, Globulin 4.1, Albumin/Globulin Ratio 0.7L Height (Feet): 5 Height (Inches): 4.00 Weight (Pounds): 157 Objective General: alert, cooperative, no distress, appears stated age Head: normocephalic, without obvious abnormality, atraumatic Eyes: conjunctivae/corneas clear. PERRL, EOM's intact Throat: lips, mucosa, and tongue normal. MMM Neck: supple, symmetrical, trachea midline, and no JVD Lungs: clear to auscultation bilaterally Heart: regular rate and rhythm, S1, S2 normal, no murmur, click, rub or gallop Abdomen: soft, non-tender, non-distended, bowel sounds normal; no masses or organomegaly Extremities: extremities normal, atraumatic, no cyanosis or edema Pulses: 2+ and symmetric Skin: skin color, texture, turgor normal; no rashes or lesions Neurologic: grossly normal, no focal deficits Kenisha Gonzalez MD Feb 15, 2019 20:03
--- NOTE | 2019-02-15 20:04 | Cardiology Progress Note ---
Assessment/Plan Problem List: (1) Cardiomyopathy (2) Pacemaker (3) CKD (chronic kidney disease) (4) Acute metabolic encephalopathy (5) Acute on chronic systolic (congestive) heart failure Status: stable, progressing Status Narrative Mr Paulino was adm w/ worsening CHF. Appears improved, on diuretics, losartan , isordil and hydralazine. ECHO results noted - EF 20-25% He is chronically RV paced, in AF Assessment/Plan continue current meds. ? anticoagulation for AF Consider upgrade of pacemaker to biventricular device as pt w/ chronic RV pacing , which may contribute to worsening CHF. Subjective ROS Limited/Unobtainable: No Subjective Cardiology for Dr. Lozano Pt reports improvement in dyspnea. Appears comfortable, on room air. Objective Last 24 Hour Vital Signs Date Time Temp Pulse Resp B/P (MAP) Pulse Ox O2 Delivery O2 Flow Rate FiO2 02/15/19 18:30 Room Air 02/15/19 16:00 60 02/15/19 16:00 97.6 61 20 131/61 (84) 96 02/15/19 12:00 97.2 60 18 132/66 (88) 98 02/15/19 12:00 62 02/15/19 09:00 Room Air 02/15/19 08:38 66 18 97 Room Air 21 02/15/19 08:30 64 20 99 Room Air 21 02/15/19 08:12 136/63 02/15/19 08:12 62 136/63 02/15/19 08:00 61 02/15/19 08:00 97.6 62 20 136/63 (87) 97 02/15/19 04:00 61 02/15/19 04:00 97.2 78 18 133/85 (101) 96 02/15/19 03:12 62 18 97 Room Air 21 02/15/19 03:02 60 18 96 Room Air 21 02/15/19 00:00 97.6 79 18 130/84 (99) 96 02/15/19 00:00 60 02/14/19 21:00 Room Air 02/14/19 20:16 75 133/85 02/14/19 20:12 59 20 99 Room Air 21 02/14/19 20:06 60 20 99 Room Air 21 02/14/19 20:05 61 20 Room Air 21 02/14/19 20:00 97.5 89 17 126/61 (82) 99 02/14/19 20:00 60 General Appearance: WD/WN, no apparent distress, alert EENT: PERRL/EOMI Neck: supple, no JVD Rhythm: Afib, other - v paced Cardiovascular: normal rate, regular rhythm, other - paced s1s2 Respiratory/Chest: expiratory wheezing Abdomen: normal bowel sounds, non tender, soft Extremities: no swelling Intake and Output 02/14/19 02/15/19 19:00 07:00 Intake Total 240 ml Output Total 300 ml Balance 240 ml -300 ml Intake Oral 240 ml Output Urine Total 300 ml # Voids 1 2 # Bowel Movements 1 Laboratory Tests Test 02/15/19 05:45 White Blood Count 5.7 K/UL (4.8-10.8) Red Blood Count 3.00 M/UL (4.70-6.10) L Hemoglobin 9.3 G/DL (14.2-18.0) L Hematocrit 29.3 % (42.0-52.0) L Mean Corpuscular Volume 98 FL (80-99) Mean Corpuscular Hemoglobin 30.9 PG (27.0-31.0) Mean Corpuscular Hemoglobin Concent 31.6 G/DL (32.0-36.0) L Red Cell Distribution Width 14.2 % (11.6-14.8) Platelet Count 182 K/UL (150-450) Mean Platelet Volume 7.0 FL (6.5-10.1) Neutrophils (%) (Auto) 62.9 % (45.0-75.0) Lymphocytes (%) (Auto) 23.0 % (20.0-45.0) Monocytes (%) (Auto) 9.6 % (1.0-10.0) Eosinophils (%) (Auto) 3.6 % (0.0-3.0) H Basophils (%) (Auto) 0.9 % (0.0-2.0) Sodium Level 140 MMOL/L (136-145) Potassium Level 4.5 MMOL/L (3.5-5.1) Chloride Level 105 MMOL/L (98-107) Carbon Dioxide Level 28 MMOL/L (21-32) Anion Gap 7 mmol/L (5-15) Blood Urea Nitrogen 43 mg/dL (7-18) H Creatinine 2.3 MG/DL (0.55-1.30) H Estimat Glomerular Filtration Rate mL/min (>60) Glucose Level 98 MG/DL (74-106) Calcium Level 8.1 MG/DL (8.5-10.1) L Total Bilirubin 0.6 MG/DL (0.2-1.0) Aspartate Amino Transf (AST/SGOT) 24 U/L (15-37) Alanine Aminotransferase (ALT/SGPT) 26 U/L (12-78) Alkaline Phosphatase 154 U/L (46-116) H Troponin I 0.056 ng/mL (0.000-0.056) Total Protein 7.1 G/DL (6.4-8.2) Albumin 3.0 G/DL (3.4-5.0) L Globulin 4.1 g/dL Albumin/Globulin Ratio 0.7 (1.0-2.7) Aurora Vuong MD Feb 15, 2019 20:04
[2019-02-15] MEDS: Carvedilol 6.25mg Tab ORAL SCH (20:37)
[2019-02-15] MEDS: HydrALAZINE 10mg Tab ORAL SCH (23:17)
[2019-02-16] VITALS: BP 133/67
[2019-02-16 04:00] VITALS: BP 130/62
[2019-02-16] MEDS: HydrALAZINE 10mg Tab ORAL SCH ×3 (05:08→17:22)
[2019-02-16] MEDS: Albuterol/Ipratropium 3ml neb HHN PRN ×2 (05:58→23:09)
[2019-02-16 06:57] LABS: BASOPHILS % (AUTO) 1.1 % (0.0-2.0); EOSINOPHILS % (AUTO) 3.3 % (0.0-3.0); HEMATOCRIT 26.8 % (42.0-52.0); HEMOGLOBIN 8.6 G/DL (14.2-18.0); LYMPHOCYTES % (AUTO) 25.9 % (20.0-45.0); MEAN CORPUSCULAR VOLUME 96 FL (80-99); MONOCYTES % (AUTO) 11.3 % (1.0-10.0); NEUTROPHILS % (AUTO) 58.4 % (45.0-75.0); PLATELET COUNT 184 K/UL (150-450); RED BLOOD COUNT 2.79 M/UL (4.70-6.10); RED CELL DISTRIBUTION WIDTH 14.2 % (11.6-14.8); WHITE BLOOD COUNT 5.3 K/UL (4.8-10.8)
--- NOTE | 2019-02-16 07:06 | NUR ---
NURSE NOTES: Received report from KATERINE Nguyễn. Patient is in stable condition. No acute distress/SOB noted. Patient denies any pain/discomfort at this time. Will continue plan of carel
--- NOTE | 2019-02-16 07:06 | NUR ---
HAND-OFF: Report given to KATERINE DAVID.
[2019-02-16 07:11] LABS: ALANINE AMINOTRANSFERASE 20 U/L (12-78); ALBUMIN 2.8 G/DL (3.4-5.0); ALBUMIN/GLOBULIN RATIO 0.7 (1.0-2.7); ALKALINE PHOSPHATASE 130 U/L (46-116); ANION GAP 7 mmol/L (5-15); ASPARTATE AMINO TRANSFERASE 17 U/L (15-37); BILIRUBIN,TOTAL 0.6 MG/DL (0.2-1.0); BLOOD UREA NITROGEN 45 mg/dL (7-18); CARBON DIOXIDE 27 MMOL/L (21-32); CHLORIDE 104 MMOL/L (98-107); CHOLESTEROL 108 MG/DL (< 200); CREATININE 2.3 MG/DL (0.55-1.30); FERRITIN 28 NG/ML (8-388); GAMMA GLUTAMYL TRANSPEPTIDASE 154 U/L (5-85); HDL CHOLESTEROL 68 MG/DL (40-60); PHOSPHORUS 4.1 MG/DL (2.5-4.9); POTASSIUM 4.4 MMOL/L (3.5-5.1); SODIUM 138 MMOL/L (136-145); TRIGLYCERIDES 25 MG/DL (30-150)
[2019-02-16 08:00] VITALS: BP 137/67
[2019-02-16] MEDS: Docusate 100mg cap ORAL SCH ×3 (08:42→17:22)
[2019-02-16] MEDS: Losartan 50mg tab ORAL SCH (08:42)
[2019-02-16] MEDS: Tamsulosin 0.4mg cap ORAL SCH ×2 (08:42→20:16)
[2019-02-16] MEDS: Aspirin Baby 81mg ORAL SCH (08:42)
[2019-02-16] MEDS: Heparin 5000 units/ml inj SUBQ SCH (08:45)
[2019-02-16] MEDS: Carvedilol 6.25mg Tab ORAL SCH ×2 (08:45→20:16)
[2019-02-16 09:38] LABS: % IRON SATURATION 50 % (15-50); IRON 160 ug/dL (50-175); TOTAL IRON BINDING CAPACITY 318 ug/dL (250-450)
--- NOTE | 2019-02-16 10:54 | NUR ---
NURSE NOTES: Called Dr. Almeida and informed that His troponin, hgb and his medication/pradaxa and heparin. She said she will come to see him today. Will continue plan of care.
[2019-02-16 12:00] VITALS: BP 133/61
--- NOTE | 2019-02-16 12:47 | NUR ---
NURSE NOTES: Informed Dr. Gonzalez that pt's hgb is treding down. New orders carried out.
--- NOTE | 2019-02-16 14:12 | Cardiology Progress Note ---
Assessment/Plan Problem List: (1) Cardiomyopathy (2) Pacemaker (3) CKD (chronic kidney disease) (4) Acute metabolic encephalopathy (5) Acute on chronic systolic (congestive) heart failure Status: stable - , progressing Status Narrative Mr Paulino is hemodynamically stable. Mild troponin elevation may be due to demand ischemia or CKD Assessment/Plan continue current meds, including lasix, coreg, losartan for CHF ? anticoagulation for AF Consider upgrade of pacemaker to biventricular device as pt w/ chronic RV pacing , which may contribute to worsening CHF. Subjective ROS Limited/Unobtainable: No Subjective Cardiology for Dr. Lozano Mr. Paulino feels well, no c/o dyspnea or pain Objective Last 24 Hour Vital Signs Date Time Temp Pulse Resp B/P (MAP) Pulse Ox O2 Delivery O2 Flow Rate FiO2 02/16/19 12:21 133/61 02/16/19 12:21 133/61 02/16/19 12:00 98.1 64 20 133/61 (85) 96 02/16/19 12:00 61 02/16/19 09:00 Room Air 02/16/19 08:45 63 137/67 02/16/19 08:42 137/67 02/16/19 08:00 61 02/16/19 08:00 97.7 63 20 137/67 (90) 97 02/16/19 06:08 70 18 99 Room Air 21 02/16/19 05:58 61 18 95 Room Air 21 02/16/19 05:08 130/62 02/16/19 05:08 130/62 02/16/19 04:00 98.0 62 17 130/62 (84) 93 02/16/19 03:48 63 02/16/19 00:00 97.5 63 18 133/67 (89) 99 02/15/19 23:56 61 02/15/19 23:17 133/61 02/15/19 23:17 133/61 02/15/19 20:37 62 127/65 02/15/19 20:00 98.9 62 18 127/65 (85) 99 02/15/19 19:22 62 02/15/19 18:30 Room Air 02/15/19 16:00 60 02/15/19 16:00 97.6 61 20 131/61 (84) 96 General Appearance: WD/WN, no apparent distress, alert EENT: PERRL/EOMI Neck: non-tender, supple, no JVD Rhythm: Afib Cardiovascular: normal rate, regular rhythm, other - paced s1s2 without m Respiratory/Chest: lungs clear, other - clear anteriorly Abdomen: non tender, soft, no mass Extremities: no swelling Intake and Output 02/15/19 02/16/19 19:00 07:00 Intake Total 360 ml Output Total 350 ml 150 ml Balance 10 ml -150 ml Intake Oral 360 ml Output Urine Total 350 ml 150 ml # Voids 2 # Bowel Movements 1 Laboratory Tests Test 02/16/19 05:20 White Blood Count 5.3 K/UL (4.8-10.8) Red Blood Count 2.79 M/UL (4.70-6.10) L Hemoglobin 8.6 G/DL (14.2-18.0) L Hematocrit 26.8 % (42.0-52.0) L Mean Corpuscular Volume 96 FL (80-99) Mean Corpuscular Hemoglobin 30.8 PG (27.0-31.0) Mean Corpuscular Hemoglobin Concent 32.0 G/DL (32.0-36.0) Red Cell Distribution Width 14.2 % (11.6-14.8) Platelet Count 184 K/UL (150-450) Mean Platelet Volume 6.0 FL (6.5-10.1) L Neutrophils (%) (Auto) 58.4 % (45.0-75.0) Lymphocytes (%) (Auto) 25.9 % (20.0-45.0) Monocytes (%) (Auto) 11.3 % (1.0-10.0) H Eosinophils (%) (Auto) 3.3 % (0.0-3.0) H Basophils (%) (Auto) 1.1 % (0.0-2.0) Sodium Level 138 MMOL/L (136-145) Potassium Level 4.4 MMOL/L (3.5-5.1) Chloride Level 104 MMOL/L (98-107) Carbon Dioxide Level 27 MMOL/L (21-32) Anion Gap 7 mmol/L (5-15) Blood Urea Nitrogen 45 mg/dL (7-18) H Creatinine 2.3 MG/DL (0.55-1.30) H Estimat Glomerular Filtration Rate mL/min (>60) Glucose Level 97 MG/DL (74-106) Hemoglobin A1c 6.5 % (4.3-6.0) H Uric Acid 7.5 MG/DL (2.6-7.2) H Calcium Level 8.0 MG/DL (8.5-10.1) L Phosphorus Level 4.1 MG/DL (2.5-4.9) Magnesium Level 1.8 MG/DL (1.8-2.4) Iron Level 160 ug/dL (50-175) Total Iron Binding Capacity 318 ug/dL (250-450) Percent Iron Saturation 50 % (15-50) Unsaturated Iron Binding 158 ug/dL (112-346) Ferritin 28 NG/ML (8-388) Total Bilirubin 0.6 MG/DL (0.2-1.0) Gamma Glutamyl Transpeptidase 154 U/L (5-85) H Aspartate Amino Transf (AST/SGOT) 17 U/L (15-37) Alanine Aminotransferase (ALT/SGPT) 20 U/L (12-78) Alkaline Phosphatase 130 U/L (46-116) H Troponin I 0.069 ng/mL (0.000-0.056) C-Reactive Protein, Quantitative 0.7 mg/dL (0.00-0.90) Pro-B-Type Natriuretic Peptide 20848 pg/mL (0-125) H Total Protein 6.6 G/DL (6.4-8.2) Albumin 2.8 G/DL (3.4-5.0) L Globulin 3.8 g/dL Albumin/Globulin Ratio 0.7 (1.0-2.7) L Triglycerides Level 25 MG/DL (30-150) L Cholesterol Level 108 MG/DL (< 200) LDL Cholesterol 33 mg/dL (<100) HDL Cholesterol 68 MG/DL (40-60) H Cholesterol/HDL Ratio 1.6 (3.3-4.4) L Vitamin B12 Level 459 PG/ML (193-986) Folate 67.0 NG/ML (8.6-58.9) H Thyroid Stimulating Hormone (TSH) 4.575 uiU/mL (0.358-3.740) Microbiology Date/Time Source Procedure Growth Status 02/14/19 14:08 Blood Blood Culture - Preliminary NO GROWTH AFTER 24 HOURS Resulted 02/14/19 14:08 Blood Blood Culture - Preliminary NO GROWTH AFTER 24 HOURS Resulted Aurora Almeida MD Feb 16, 2019 14:12
--- NOTE | 2019-02-16 14:41 | NUR ---
PT Note PT fady completed, treatment initiated. Patient was able to ambulate with a FWW x 80 ft. He c/o SOB during and after gait training. O2 sat during and after gait training ranged from 94-99%. Patient can benefit from PT services to increased his muscle strength and balance and instruct on energy conservations techniques to improve his functional mobility and gait. Addendum: 02/16/19 at 1442 by EDY POON PT Amended: Links added.
[2019-02-16 16:00] VITALS: BP 129/69
--- NOTE | 2019-02-16 17:15 | General Progress Note ---
Assessment/Plan Assessment: Problem List: (1) Acute metabolic encephalopathy ICD Codes: G93.41 - Metabolic encephalopathy SNOMED: [id number], [id number] Assessment: 88 year old man with history of dementia, CKD III, chronic sCHF, atrial fibrillation on Pradaxa,s/p PPM, mod pulmonary HTN who comes in from home with weakness and confusion. #Acute metabolic encephalopathy, unclear etiology at this time #Dementia -supportive care -fall and aspiration precautions -frequent orienting -avoid sedative-hypnotics and reversal of sleep-wake cycle -Neurology eval Dr Vega noted #Chronic systolic and diastolic CHF, not in acute exacerbation #NSTEMI, likely due to demand ischemia #Atrial fibrillation #HTN #Pulmonary HTN -Cont telemetry -cardiac monitoring -f/userial cardiac enzymes -continue Lasix, losartan, Coreg, Lipitor. -add ASA 81 -consult Cardiology, Dr. Lozano/Qian #CKD IV, baseline creatinine ~2.0-2.2 -continue to monitor renal function -avoid nephrotoxic agents -Nephrology consultation #BPH -continue Flomax Subjective Date patient seen: Feb 16, 2019 Time patient seen: 12:30 ROS Limited/Unobtainable: No Allergies: Coded Allergies: No Known Allergies (Unverified , 02/14/19) Subjective No acute overnight events, no new complaints. Denies any chest pain or dysnea Objective Last 24 Hour Vital Signs Date Time Temp Pulse Resp B/P (MAP) Pulse Ox O2 Delivery O2 Flow Rate FiO2 02/16/19 16:00 98.3 62 20 129/69 (89) 96 02/16/19 16:00 63 02/16/19 12:21 133/61 02/16/19 12:21 133/61 02/16/19 12:00 98.1 64 20 133/61 (85) 96 02/16/19 12:00 61 02/16/19 09:00 Room Air 02/16/19 08:45 63 137/67 02/16/19 08:42 137/67 02/16/19 08:00 61 02/16/19 08:00 97.7 63 20 137/67 (90) 97 02/16/19 06:08 70 18 99 Room Air 21 02/16/19 05:58 61 18 95 Room Air 21 02/16/19 05:08 130/62 02/16/19 05:08 130/62 02/16/19 04:00 98.0 62 17 130/62 (84) 93 02/16/19 03:48 63 02/16/19 00:00 97.5 63 18 133/67 (89) 99 02/15/19 23:56 61 02/15/19 23:17 133/61 02/15/19 23:17 133/61 02/15/19 20:37 62 127/65 02/15/19 20:00 98.9 62 18 127/65 (85) 99 02/15/19 19:22 62 02/15/19 18:30 Room Air Intake and Output 02/15/19 02/16/19 19:00 07:00 Intake Total 360 ml Output Total 350 ml 150 ml Balance 10 ml -150 ml Intake Oral 360 ml Output Urine Total 350 ml 150 ml # Voids 2 # Bowel Movements 1 Laboratory Tests 02/16/19 05:20: White Blood Count 5.3, Red Blood Count 2.79L, Hemoglobin 8.6L, Hematocrit 26.8L , Mean Corpuscular Volume 96, Mean Corpuscular Hemoglobin 30.8, Mean Corpuscular Hemoglobin Concent 32.0, Red Cell Distribution Width 14.2, Platelet Count 184, Mean Platelet Volume 6.0L, Neutrophils (%) (Auto) 58.4, Lymphocytes ( %) (Auto) 25.9, Monocytes (%) (Auto) 11.3H, Eosinophils (%) (Auto) 3.3H, Basophils (%) (Auto) 1.1, Sodium Level 138, Potassium Level 4.4, Chloride Level 104, Carbon Dioxide Level 27, Anion Gap 7, Blood Urea Nitrogen 45H, Creatinine 2.3H, Estimat Glomerular Filtration Rate , Glucose Level 97, Hemoglobin A1c 6.5H , Uric Acid 7.5H, Calcium Level 8.0L, Phosphorus Level 4.1, Magnesium Level 1.8 , Iron Level 160, Total Iron Binding Capacity 318, Percent Iron Saturation 50, Unsaturated Iron Binding 158, Ferritin 28, Total Bilirubin 0.6, Gamma Glutamyl Transpeptidase 154H, Aspartate Amino Transf (AST/SGOT) 17, Alanine Aminotransferase (ALT/SGPT) 20, Alkaline Phosphatase 130H, Troponin I 0.069H, C- Reactive Protein, Quantitative 0.7, Pro-B-Type Natriuretic Peptide [id number], Total Protein 6.6, Albumin 2.8L, Globulin 3.8, Albumin/Globulin Ratio 0.7L, Triglycerides Level 25L, Cholesterol Level 108, LDL Cholesterol 33, HDL Cholesterol 68H, Cholesterol/HDL Ratio 1.6L, Vitamin B12 Level 459, Folate 67.0H , Thyroid Stimulating Hormone (TSH) 4.575H Height (Feet): 5 Height (Inches): 4.00 Weight (Pounds): 157 Objective General: alert, cooperative, no distress, appears stated age Head: normocephalic, without obvious abnormality, atraumatic Eyes: conjunctivae/corneas clear. PERRL, EOM's intact Throat: lips, mucosa, and tongue normal. MMM Neck: supple, symmetrical, trachea midline, and no JVD Lungs: clear to auscultation bilaterally Heart: regular rate and rhythm, S1, S2 normal, no murmur, click, rub or gallop Abdomen: soft, non-tender, non-distended, bowel sounds normal; no masses or organomegaly Extremities: extremities normal, atraumatic, no cyanosis or edema Pulses: 2+ and symmetric Skin: skin color, texture, turgor normal; no rashes or lesions Neurologic: grossly normal, no focal deficits Kenisha Gonzalez MD Feb 16, 2019 17:15
--- NOTE | 2019-02-16 19:00 | NUR ---
NURSE NOTES: received pt from [facility] nurse, pt in bed, no SOB, discomfort noted, no change in condition during the day, safety precautions in place, education provided about using call aid when help needed, pt verbalized understanding. Addendum: 02/16/19 at 2000 by Rosmery Raines RN no discomfort noted.
--- NOTE | 2019-02-16 19:03 | NUR ---
HAND-OFF: Report given to KATERINE Botello. Patient is in stable condition. No acute distress/SOB noted. Endorsed plan of care.
[2019-02-16 20:00] VITALS: BP 130/59
[2019-02-16] MEDS: Donepezil 5mg Tab ORAL SCH (20:17)
[2019-02-16] MEDS ORDERED: Donepezil 5mg Tab ORAL SCH (21:00)
[2019-02-17] VITALS: BP 132/62
--- NOTE | 2019-02-17 | NUR ---
NURSE NOTES: pt sleeping, no acute distress noted, no s/s of pain. bed alarm in place. bed at lowest positing, call light within reach. will continue to monitor.
[2019-02-17] MEDS: HydrALAZINE 10mg Tab ORAL SCH ×4 (00:19→18:15)
[2019-02-17 04:00] VITALS: BP 140/73
--- NOTE | 2019-02-17 06:45 | NUR ---
NURSE NOTES: pt remains in stable condition, no acute distress noted, bed locked and at the lowest position, call light within reach, all needs met during my shift. will endorse pt to incoming pt. Addendum: 02/17/19 at 0724 by Rosmery Raines RN will endorse to incoming nurse
--- NOTE | 2019-02-17 07:08 | NUR ---
HAND-OFF: Report given to KATERINE Manning.
--- NOTE | 2019-02-17 07:09 | NUR ---
NURSE NOTES: Received report from KATERINE Botello. Patient in bed resting, no active s/s cardiac, respiratory distress noticed at this time, denies pain at this time. Patient on room air, V-paced with HR 60, AOx4. IV site on left hand 20G, right hand 20 G, asymptomatic, patent, intact. Bed in lowest position, side rails upx2, call light within reach. Will continue to monitor.
[2019-02-17 08:00] VITALS: BP 138/95
--- NOTE | 2019-02-17 08:02 | NUR ---
CASE MANAGEMENT:REVIEW 02/16/19 SI: ACUTE ENCEPHALOPATHY. NSTEMI 98.1 62 20 129/69 96% 0N RA H/H-8.6/26.8 BUN+45 CR+2.3 TROPONIN(+) 0.069 IS; ARICEPT PO QHS FLOMAX PO Q12 HYDRALAZINE PO Q6HRS ISORDIL PO Q6 COREG PO Q12 LASIX PO QD COZAAR PO QD PRADAXA PO Q12 ASA PO QD : TELEMETRY STATUS DCP: PATIENT IS FROM HOME 02/17/19 SI: ACUTE ENCEPHALOPATHY. NSTEMI 98.1 67 16 140/73 99% ON RA IS: DUONEB HHN Q4HRS RTC ARICEPT PO QHS FLOMAX PO Q12 HYDRALAZINE PO Q6HRS ISORDIL PO Q6 COREG PO Q12 LASIX PO QD COZAAR PO QD PRADAXA PO Q12 ASA PO QD : TELEMETRY STATUS DCP: PATIENT IS FROM HOME
[2019-02-17] MEDS: Albuterol/Ipratropium 3ml neb HHN PRN (08:15)
[2019-02-17] MEDS: Carvedilol 6.25mg Tab ORAL SCH ×2 (09:00→20:31)
[2019-02-17] MEDS: Docusate 100mg cap ORAL SCH ×3 (09:10→18:15)
[2019-02-17] MEDS: Losartan 50mg tab ORAL SCH (09:10)
[2019-02-17] MEDS: Tamsulosin 0.4mg cap ORAL SCH ×2 (09:10→20:31)
[2019-02-17] MEDS: Aspirin Baby 81mg ORAL SCH (09:11)
--- NOTE | 2019-02-17 10:39 | NUR ---
SWALLOW/SPEECH THERAPY NOTE: REFERRED FOR SWALLOW EVALUATION BY MS. RADHA BOLIVAR AND PRIMARY DR GOLD. SEE FULL REPORT COMPLETED POST CHART REVIEW DYSPHAGIA RISK FACTORS FOR THIS 88 Y.O. RUSSIAN-SPEAKING ([facility]) MALE: ACUTE PNA (R INFILTRATE), WEAK, AMS METABOLIC ENCEPHALOPATHY AND CONFUSED, CKD III, COUGH X ONE MONTH. 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 ADVANCE DIRECTIVE HAS ADVOCATE ? TUBE FEEDING PREFERENCES IF NEEDS AT HOME ON REG TEXTURE DIET AND THIN LIQUIDS W/O OVERT ASPIRATION AND SWALLOWING PROBLEMS PER CAREGIVER CURRENTLY ON A CARDIAC REG TEXTURE DIET AND THIN LIQUIDS WITH 50-75% INTAKE AND GOOD APPETITE. ALERT ON ROOM AIR, UPPER/LOWER DENTURES (CG WILL CLEAN) SLIGHTLY LOOSE THE LOWER. EXPRESSES BASIC NEEDS IN RUSSIAN BUT IS VERY BARROW. NOT ORIENTED DUE TO DEMENTIA. 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 LIPS/TONGUE GROSSLY FUNCTIONAL. MIN LEFT LABIAL ASYMMETRY BUT NO ORAL SPILLAGE WITH TSP NOR CUP. VOICE CLEAR BUT HAS WEAKER VOLITIONAL COUGH (NONE OBSERVED SPONTANEOUSLY) ALTHOUGH NO S/S OF OVERT ASPIRATION WITH THIN LIQUIDS SEQUENTIAL SIPS (3 OZ LIS SWALLOW PROTOCOL), HAD SOB INCREASED RR 18 OR MORE (FROM BASELINE 16) AND EXTRA SWALLOW AFTER THE LAST SWALLOW WITH FAIR HYOLARYNGEAL EXCURSION. NO OVERT S/S OF ASPIRATION WITH PUREED TSP BUT DOES TEND TO CHEW BOLUS UNNECESSARILY AND MAY HAVE SOME ORAL SENSORY ISSUES. EXTRA SWALLOW NOTED AND APPEARED PHARYNEGAL RESIDUE SINCE NO ORAL RESIDUE AFTER THE FIRST SWALLOW. NO OVERT ASPIRATION. SLOWER IN MASTICATING 1/2 CRACKER AND NEEDED LIQUID WASH TO CLEAR PHARYNGEAL RESIDUE AFTER THE FIRST SWALLOW, NO OVERT ASPIRATION. POOR TO FAIR BUT SLOWER INTAKE ON CURRENT REG TEXTURE DIET. RECOMMENDATIONS: COMPLETE MOD BARIUM SWALLOW STUDY IP OR OP TO FURTHER ASSESS SWALLOW, DETERMINE SILENT ASP RISK AND ETIOLOGY, AND ATTEMPT TRIAL TX TECHNIQUES. IF PO CONTINUES FOR QUALITY OF LIFE, [facility]GR[facility] FIN[facility] CHOPPED AND NECTAR THICK LIQUIDS WITH POSTED ASPIRATION AND REFLUX PRECAUTIONS WITH ASSIST WITH MEALS. ENSURE AT BEDSIDE PER RD RECOMMENDATIONS DYSPHAGIA MANAGEMENT AND TX (SEE REPORT FOR GOALS) COGNITIVE-COMMUNICATIVE EVAL/TX FOR COMMUNICATION TIPS MOSTLY D/W RN (GARCIA), ADMINISTRATOR OF HOME HEALTH (CRYSTAL),PATIENT, AND CG, LEFT MESSAGE WITH KILN SETTER EDUCATED/TRAINED STAFF AND CG IN POSTED ASP/REFLUX PRECAUTIONS. Addendum: 02/17/19 at 1155 by LEN FAY VETERAN APPEALS REVIEWER SPOKE WITH CONTACT LENS BLOCKER DR MENCHACA WHO SAID PATIENT HAD CT SCAN AT [facility] RECENTLY THAT LOOKED BET[place] [facility] [place] APPROVED MOD BARIUM SWALLOW STUDY HERE IP OR OP IF DC. Addendum: 02/17/19 at 1158 by LEN FAY VETERAN APPEALS REVIEWER HIGHEST ASPIRATION RISK RELATED TO SOB OR INCREASE RR AND SWALLOW AND BREATHING INCOORDINATION, OROPHARYNGEAL WEAKNESS, AND DELAYED SWALLOW RESPONSE.
--- NOTE | 2019-02-17 10:50 | General Progress Note ---
Assessment/Plan Problem List: (1) Acute metabolic encephalopathy ICD Codes: G93.41 - Metabolic encephalopathy SNOMED: 48448002, [id number] Assessment: 88 year old man with history of dementia, CKD III, chronic sCHF, atrial fibrillation on Pradaxa,s/p PPM, mod pulmonary HTN who comes in from home with weakness and confusion. #Acute metabolic encephalopathy, unclear etiology #Dementia -continue supportive care -fall and aspiration precautions -frequent orienting -avoid sedative-hypnotics and reversal of sleep-wake cycle -Neurology following #Recent history of tracheobronchitis #Expiratory wheeze today -started Duoneb -Pulm eval #Chronic systolic and diastolic CHF, not in acute exacerbation #NSTEMI, likely due to demand ischemia #Atrial fibrillation #HTN #Pulmonary HTN -cardiac monitoring -check serial cardiac enzymes -continue Lasix, losartan, Coreg, Lipitor, ASA -cardiology following #CKD IV, baseline creatinine ~2.0-2.2 -continue to monitor renal function -avoid nephrotoxic agents I spent 70 minutes on this patient's case, and 35 minutes was dedicated to counseling and/or care coordination. Time of note may not reflect time of encounter. Subjective Date patient seen: Feb 17, 2019 Time patient seen: 07:30 ROS Limited/Unobtainable: No Constitutional: Denies: chills, fever Cardiovascular: Denies: chest pain, edema Respiratory: Reports: shortness of breath, wheezing; Denies: cough, orthopnea Gastrointestinal/Abdominal: Denies: abdomen distended Allergies: Coded Allergies: No Known Allergies (Unverified , 02/14/19) Subjective Medicine follow up for acute metabolic encephalopathy. He reports dyspnea and wheeze this morning. Objective Last 24 Hour Vital Signs Date Time Temp Pulse Resp B/P (MAP) Pulse Ox O2 Delivery O2 Flow Rate FiO2 02/17/19 09:10 138/95 02/17/19 09:00 63 138/95 02/17/19 09:00 Room Air 02/17/19 08:16 72 18 99 Room Air 21 02/17/19 08:04 71 16 97 Room Air 21 02/17/19 08:00 61 02/17/19 08:00 97.8 64 18 138/95 (109) 97 02/17/19 07:58 66 16 Room Air 21 02/17/19 05:55 140/73 02/17/19 05:55 140/73 02/17/19 04:00 98.1 67 20 140/73 (95) 99 02/17/19 04:00 60 02/17/19 00:19 132/62 02/17/19 00:19 132/62 02/17/19 00:00 60 02/17/19 00:00 98.4 60 18 132/62 (85) 97 02/16/19 23:19 68 16 99 Room Air 21 02/16/19 23:10 69 14 98 Room Air 21 02/16/19 21:00 Room Air 02/16/19 20:16 68 130/59 02/16/19 20:00 98.6 63 17 130/59 (82) 97 02/16/19 20:00 60 02/16/19 18:50 65 16 Room Air 21 02/16/19 17:22 129/69 02/16/19 17:22 129/69 02/16/19 16:00 98.3 62 20 129/69 (89) 96 02/16/19 16:00 63 02/16/19 12:21 133/61 02/16/19 12:21 133/61 02/16/19 12:00 98.1 64 20 133/61 (85) 96 02/16/19 12:00 61 Intake and Output 02/16/19 02/17/19 18:59 06:59 Intake Total 480 ml 360 ml Output Total 200 ml Balance 280 ml 360 ml Intake Oral 480 ml 360 ml Output Urine Total 200 ml # Voids 3 3 # Bowel Movements 2 1 Height (Feet): 5 Height (Inches): 4.00 Weight (Pounds): 157 General Appearance: no apparent distress, alert EENT: normal ENT inspection Neck: normal alignment, supple, normal inspection Cardiovascular: normal rate, regular rhythm Respiratory/Chest: no respiratory distress, no accessory muscle use, expiratory wheezing Abdomen: non tender, soft Edin Fried MD Feb 17, 2019 10:50
[2019-02-17] MEDS: Albuterol/Ipratropium 3ml neb HHN SCH ×4 (11:35→23:07)
--- NOTE | 2019-02-17 11:58 | Nephrology Progress Note ---
Assessment/Plan Problem List: (1) CKD (chronic kidney disease) (2) Acute metabolic encephalopathy (3) Cardiomyopathy (4) Pacemaker (5) Acute on chronic systolic (congestive) heart failure (6) UTI (urinary tract infection) Assessment CKD IV, baseline creatinine ~2.0-2.2 Acute metabolic encephalopathy, unclear etiology at this time Dementia Chronic systolic and diastolic CHF, not in acute exacerbation / Cardiomyopathy NSTEMI, likely due to demand ischemia Atrial fibrillation / Pacemaker HTN Pulmonary HTN BPH Plan adjust BP meds after load and pre load reduction Anemia rivera lower mind altering meds echo: Global left ventricular hypokinesis. Normal left ventricular chamber size. Left ventricular ejection fraction estimated to be 20-25 %. Mild left ventricular hypertrophy. Subjective ROS Limited/Unobtainable: No Constitutional: Reports: malaise Objective Objective Last 24 Hour Vital Signs Date Time Temp Pulse Resp B/P (MAP) Pulse Ox O2 Delivery O2 Flow Rate FiO2 02/17/19 11:24 59 16 100 Room Air 02/17/19 11:15 61 16 97 Room Air 02/17/19 11:15 36 02/17/19 09:10 138/95 02/17/19 09:00 63 138/95 02/17/19 09:00 Room Air 02/17/19 08:16 72 18 99 Room Air 02/17/19 08:04 71 16 97 Room Air 02/17/19 08:00 61 02/17/19 08:00 97.8 64 18 138/95 (109) 97 02/17/19 07:58 66 16 Room Air 02/17/19 05:55 140/73 02/17/19 05:55 140/73 02/17/19 04:00 98.1 67 20 140/73 (95) 99 02/17/19 04:00 60 02/17/19 00:19 132/62 02/17/19 00:19 132/62 02/17/19 00:00 60 02/17/19 00:00 98.4 60 18 132/62 (85) 97 02/16/19 23:19 68 16 99 Room Air 21 02/16/19 23:10 69 14 98 Room Air 21 02/16/19 21:00 Room Air 02/16/19 20:16 68 130/59 02/16/19 20:00 98.6 63 17 130/59 (82) 97 02/16/19 20:00 60 02/16/19 18:50 65 16 Room Air 21 02/16/19 17:22 129/69 02/16/19 17:22 129/69 02/16/19 16:00 98.3 62 20 129/69 (89) 96 02/16/19 16:00 63 02/16/19 12:21 133/61 02/16/19 12:21 133/61 02/16/19 12:00 98.1 64 20 133/61 (85) 96 02/16/19 12:00 61 Intake and Output 02/16/19 02/17/19 18:59 06:59 Intake Total 480 ml 360 ml Output Total 200 ml Balance 280 ml 360 ml Intake Oral 480 ml 360 ml Output Urine Total 200 ml # Voids 3 3 # Bowel Movements 2 1 Height (Feet): 5 Height (Inches): 4.00 Weight (Pounds): 157 General Appearance: no apparent distress Cardiovascular: normal rate Respiratory/Chest: decreased breath sounds Abdomen: distended Robel Novak MD Feb 17, 2019 11:58
[2019-02-17 12:00] VITALS: BP 131/71
--- NOTE | 2019-02-17 12:00 | Consultation ---
Consult Note Assessment/Plan DICT # [id number] Yuval Robles MD Feb 17, 2019 12:00
--- NOTE | 2019-02-17 14:59 | NUR ---
*-* INSURANCE *-*- ALL CLINCALS AND REVIEWS HAVE BEEN FAXED TO: [facility] NCM: MAYANK P- [phone] [phone]....REVIEW/CLINICAL
[2019-02-17 16:00] VITALS: BP 125/61
--- NOTE | 2019-02-17 18:15 | Consultation ---
DATE OF CONSULTATION: 02/17/2019 PULMONARY CONSULTATION CONSULTING PHYSICIAN: Yuval Robles M.D. REFERRING PHYSICIAN: . REASON FOR CONSULTATION: Recent pneumonia, shortness of breath, and wheezing. HISTORY OF PRESENT ILLNESS: The patient is a very pleasant 88-year-old male with a history of ischemic cardiomyopathy, congestive heart failure, pulmonary hypertension, mitral regurgitation, tricuspid regurgitation, atrial fibrillation, hypertension, pacemaker, hyperlipidemia, CKD, right bundle branch block, former smoker, and former alcohol use, recently admitted to [facility] with community-acquired tracheobronchitis versus URI with acute decompensated heart failure, who I last saw in the office on 02/12/2019. At that point, I referred him for a followup scan. The patient was using home nebulizers and Dr. Lozano had just increased his diuretics. Nonetheless, he presented to [facility] with weakness and confusion and has been admitted for further management of encephalopathy likely secondary to progression of his dementia with superimposed toxic metabolic process. The patient does not appear to be in decompensated heart failure. History is very limited given his dementia, but per his family at bedside, decreased cough, no congestion, and some wheezing. No fevers or chills. No nausea, vomiting, abdominal pain, or urinary complaints. PAST MEDICAL HISTORY: 1. CVA. 2. Ischemic cardiomyopathy. 3. Congestive heart failure. 4. Pulmonary hypertension. 5. Mitral regurgitation. 6. Tricuspid regurgitation. 7. Atrial fibrillation. 8. Hypertension. 9. Pacemaker. 10. Hyperlipidemia. 11. CKD. 12. Right bundle branch block. 13. Former history of tobacco and alcohol use. PAST SURGICAL HISTORY: Colonoscopy and pacemaker. MEDICATIONS: Prior to admission medications reviewed. Current medications reviewed. ALLERGIES: No known drug allergies. SOCIAL HISTORY: He is . Former smoker. Has supportive family. No drug or alcohol use. FAMILY HISTORY: Noncontributory. REVIEW OF SYSTEMS: Unobtainable. PHYSICAL EXAMINATION: VITAL SIGNS: Temperature is 98.1, pulse 59, blood pressure 138/95, respiratory rate 16, and saturating 100% on room air. GENERAL: He is an elderly, frail, confused male, in no acute distress. Awake, alert, and oriented x2. HEENT: Normocephalic and atraumatic. Oropharynx is clear with moist mucous membranes. NECK: Supple without lymphadenopathy or JVD. CHEST: Fairly clear to auscultation bilaterally. HEART: Irregularly irregular. ABDOMEN: Soft, nontender, and nondistended. EXTREMITIES: No cyanosis, clubbing, or edema. ANCILLARY DATA: On 02/14/2019 CT of the chest without contrast at [facility], mild cardiomegaly with trace pericardial effusion, new small bilateral pleural effusions, and 1 cm left upper lobe ground-glass opacity minimally increased since 2012, and decreasing size of right adrenal myelolipoma. White count 5.3, hemoglobin 8.6, and platelet count 184,000. ABG, 7.42/37/89/23/96. Sodium 138, potassium 4.4, chloride 104, bicarbonate 27, BUN 45, creatinine 2.3, and glucose 97. Hemoglobin A1c 6.5. Lactic acid 0.8. Uric acid 7.5, calcium 8.0, phosphorus 4.1, magnesium 1.8. Iron 160, TIBC 318, saturation 15%, and ferritin 26. Total bilirubin 0.6. GGT 154. ALT 20, AST 17, and alkaline phosphatase 130. Troponin 0.056 and 0.069. CRP 0.7. ProBNP 26,276. Total protein 6.6. Albumin 2.8. Globulin 3.8. Triglycerides 25, cholesterol 108, LDL 33, HDL 68, B12 65, folate 67, and TSH 4.57. Lipase 178. Urinalysis, 1+ blood, 1+ leukocyte esterase. Blood culture x2 is still pending. Echocardiogram shows an LVEF of 20 to 25 percent, global LV hypokinesis, normal LV chamber size, biatrial enlargement, and thickened mitral valve leaflets. Pulmonic valve not visualized. IVC 2.5 cm with decreased collapse. A 02/14/2019 chest x-ray, congestive heart failure, pulmonary vascularity, and pacemaker. A 02/14/2019 CT of the head shows no evidence of acute intracranial hemorrhage, mass effect, or cortical edema. Unchanged chronic infarct in the right frontoparietal. Atrophy and nonspecific periventricular hypoattenuation suggestive of chronic ischemic microvascular changes. ASSESSMENT: The patient is a very pleasant 88-year-old male with a history of ischemic cardiomyopathy, congestive heart failure, pulmonary hypertension, mitral regurgitation, tricuspid regurgitation, atrial fibrillation, hypertension, pacemaker, hyperlipidemia, CKD, right bundle-branch block, former smoker and drinker, recently admitted to [facility] with cough productive of yellow phlegm and shortness of breath, thought to be secondary to community-acquired tracheobronchitis and decompensated heart failure, now presenting with toxic metabolic encephalopathy and altered mental status. PROBLEM LIST: 1. Altered mental status likely toxic metabolic encephalopathy on top of underlying dementia. 2. Stable left upper lobe ground-glass opacity 1 cm (was 8 mm in 2012). 3. Congestive heart failure with acute decompensated heart failure. 4. Ischemic cardiomyopathy. 5. Pulmonary hypertension. 6. MR, TR. 7. Atrial fibrillation on anticoagulation. 8. History of pacemaker. 9. Hypertension, hyperlipidemia. 10. CKD. 11. History of ETOH and tobacco use. TREATMENT PLAN: 1. Optimize pulmonary hygiene/mobilize as tolerated. 2. Cpfsa-[id number] and p.r.n. DuoNebs. 3. Continue Flonase. 4. Observe off antibiotics. 5. Monitor volumes and renal function, cautious diuresis as permitted. 6. Monitor mental status. 7. The patient can theoretically have PFTs as an outpatient if within goals of care. 8. 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 9. Full Code. 10. Continue goals of care. 11. DVT prophylaxis. The patient is on anticoagulation. 12. Aspiration precautions, discussed case with supportive care, agree with video swallow evaluation. , thank you for allowing me to assist in care of your patient. If I may be of any assistance, please do not hesitate to ask. Yuval Robles M.D. DR: LEENA JOB#: [id number] CC:
--- NOTE | 2019-02-17 19:20 | NUR ---
NURSE NOTES: received pt from KATERINE Olivares. pt alert and talkative. daughter at bedside. no acute distress noted, no c/o or discomfort. bed locked and at the lowest position, call light within reach. education provided to call for help when help needed, pt verbalized understanding. will continue to monitor.
--- NOTE | 2019-02-17 19:34 | NUR ---
HAND-OFF: Report given to KATERINE Botello.
--- NOTE | 2019-02-17 19:50 | Neurology Progress Note ---
Interim History Interim History ROS Limited/Unobtainable: No Objective Physical Exam Last Vital Signs Date Time Temp Pulse Resp B/P (MAP) Pulse Ox O2 Delivery O2 Flow Rate FiO2 02/17/19 19:44 64 18 98 Room Air 21 02/17/19 19:35 2.0 02/17/19 18:15 125/61 02/17/19 16:00 97.5 Impression/Recommendations Status: stable - , progressing Nancy Kilpatrick N.P. Feb 17, 2019 19:50
[2019-02-17 20:00] VITALS: BP 124/65
[2019-02-17] MEDS: Donepezil 5mg Tab ORAL SCH (20:31)
[2019-02-18] VITALS: BP 119/66
--- NOTE | 2019-02-18 | NUR ---
NURSE NOTES: pt sleeping no acute distress noted. safety precautions in place. will continue to monitor.
[2019-02-18] MEDS: HydrALAZINE 10mg Tab ORAL SCH ×3 (00:07→12:22)
--- NOTE | 2019-02-18 00:33 | Neurology Progress Note ---
Interim History Interim History ROS Limited/Unobtainable: No Objective Physical Exam Last Vital Signs Date Time Temp Pulse Resp B/P (MAP) Pulse Ox O2 Delivery O2 Flow Rate FiO2 02/18/19 00:07 119/66 02/17/19 23:16 64 18 98 Nasal Cannula 2.0 28 02/17/19 20:00 97.6 Impression/Recommendations Status: stable - , progressing Nancy Kilpatrick N.P. Feb 18, 2019 00:33
[2019-02-18] MEDS: Albuterol/Ipratropium 3ml neb HHN SCH ×4 (03:04→14:07)
[2019-02-18 04:00] VITALS: BP 111/62
--- NOTE | 2019-02-18 06:21 | NUR ---
NURSE NOTES: pt remains in stable condition, no acute distress, no change of condition, all needs met during my shift. will endorse pt to incoming nurse.
--- NOTE | 2019-02-18 07:15 | NUR ---
HAND-OFF: Report given to KATERINE Villarreal.
--- NOTE | 2019-02-18 07:20 | NUR ---
NURSE NOTES: Received shift report from KATERINE Garg. The patient is sleeping without acute distress or shortness of breath. The patient's bed is in the lowest position, call light in reach, and fall precaution reinforced. Will continue plan of care.
--- NOTE | 2019-02-18 07:54 | NUR ---
CASE MANAGEMENT:REVIEW 02/18/19 SI: ACUTE TOXIC METABOLIC ENCEPHALOPATHY CHF. NSTEMI. 97.7 60 20 111/62 98% 0N RA IS: DUONEB HHN Q4HRS RTC HYDRALAZINE PO Q6 ARICEPT PO QHS FLOMAX POQ12 ISORDIL PO Q6 COREG PO Q12 LASIX PO QD COZAAR PO QD PRADAXA PO Q12 ASA PO QD : TELEMETRY STATUS DCP: FROM HOME PLAN: VIDEO SWALLOW PENDING URINE CX PENDING
[2019-02-18 08:00] VITALS: BP 136/65
[2019-02-18] MEDS: Docusate 100mg cap ORAL SCH ×2 (09:09→12:23)
[2019-02-18] MEDS: Losartan 50mg tab ORAL SCH (09:10)
[2019-02-18] MEDS: Aspirin Baby 81mg ORAL SCH (09:10)
[2019-02-18] MEDS: Tamsulosin 0.4mg cap ORAL SCH (09:10)
[2019-02-18] MEDS: Carvedilol 6.25mg Tab ORAL SCH (09:10)
--- NOTE | 2019-02-18 09:52 | Discharge Summary ---
Discharge Summary Hospital Course Date of Admission Feb 14, 2019 at 14:55 Date of Discharge 02/18/19 Admitting Diagnosis ams, weakness HPI Sav Paulino is a 88 year old male who was admitted on Feb 14, 2019 at 14:55 for Altered Mental Status,Weakness Hospital Course 88 year old man with history of dementia, CKD III, chronic sCHF, atrial fibrillation on anticoagulation,s/p PPM, mod pulmonary HTN who presented from home with weakness and confusion. #Acute metabolic encephalopathy, unclear etiology, resolved #Dementia -treated supportively with resolution of weakness and confusion. -seen by Neurology -Cleared to go home by PT -will resume home health services #Recent history of tracheobronchitis #Expiratory wheeze today -continue inhaled bronchodilators -Pulm eval apprecitaed #Chronic systolic and diastolic CHF, not in acute exacerbation #NSTEMI, likely due to demand ischemia #Atrial fibrillation #HTN #Pulmonary HTN -seen by cardiology -continue Lasix, losartan, Coreg, Lipitor -hold ASA as outpatient given concomitant use of DOAC #CKD IV, baseline creatinine ~2.0-2.2 -stable renal function -seen by nephrology Time spent preparing discharge was 32 minutes which included time spent coordinating with family, nurse and consulting MDs I spent 70 minutes on this patient's case, and 35 minutes was dedicated to counseling and/or care coordination. Time of note may not reflect time of encounter. Discharge Discharge Disposition Patient was discharged to Home Discharge Diagnoses: (1) Acute metabolic encephalopathy Edin Fried MD Feb 18, 2019 09:52
--- NOTE | 2019-02-18 10:00 | NUR ---
NURSE NOTES: Communicated with Dr. Segal regarding discharge plan today. The patient was informed about the possible discharge today in the public relations director today at bedside. Will follow up the discharge order and inform the family member again.
--- NOTE | 2019-02-18 10:54 | NUR ---
*-* INSURANCE *-*- UPDATED CLINICALS AND REVIEWS HAVE BEEN FAXED TO: [facility] NCM: MAYANK P- [phone]....REVIEW/CLINICAL
--- NOTE | 2019-02-18 11:45 | Nephrology Progress Note ---
Assessment/Plan Problem List: (1) CKD (chronic kidney disease) (2) Acute metabolic encephalopathy (3) Cardiomyopathy (4) Pacemaker (5) Acute on chronic systolic (congestive) heart failure (6) UTI (urinary tract infection) Assessment CKD IV, baseline creatinine ~2.0-2.2 Acute metabolic encephalopathy, unclear etiology at this time Dementia Chronic systolic and diastolic CHF, not in acute exacerbation / Cardiomyopathy NSTEMI, likely due to demand ischemia Atrial fibrillation / Pacemaker HTN Pulmonary HTN BPH Plan no new labs adjust BP meds after load and pre load reduction Anemia rivera lower mind altering meds Dc planning? echo: Global left ventricular hypokinesis. Normal left ventricular chamber size. Left ventricular ejection fraction estimated to be 20-25 %. Mild left ventricular hypertrophy. Subjective ROS Limited/Unobtainable: No Constitutional: Reports: malaise Objective Objective Last 24 Hour Vital Signs Date Time Temp Pulse Resp B/P (MAP) Pulse Ox O2 Delivery O2 Flow Rate FiO2 02/18/19 11:17 70 20 98 Nasal Cannula 2.0 28 02/18/19 11:04 74 18 96 Nasal Cannula 2.0 28 02/18/19 09:10 62 136/65 02/18/19 09:10 136/65 02/18/19 09:00 Nasal Cannula 2.0 02/18/19 08:00 97.7 62 18 136/65 (88) 100 02/18/19 08:00 61 02/18/19 06:42 Nasal Cannula 2.0 28 02/18/19 06:42 98 Nasal Cannula 2.0 28 02/18/19 06:42 2.0 28 02/18/19 06:42 Nasal Cannula 2.0 28 02/18/19 05:31 111/62 02/18/19 05:30 111/62 02/18/19 04:00 97.7 60 20 111/62 (78) 100 02/18/19 04:00 65 02/18/19 03:18 61 18 97 Nasal Cannula 2.0 28 02/18/19 03:04 65 18 97 Nasal Cannula 2.0 28 02/18/19 00:07 119/66 02/18/19 00:07 119/66 02/18/19 00:00 98.7 62 20 119/66 (83) 100 02/18/19 00:00 60 02/17/19 23:16 64 18 98 Nasal Cannula 2.0 28 02/17/19 23:07 64 18 97 Nasal Cannula 2.0 28 02/17/19 21:00 Room Air 02/17/19 20:31 64 124/65 02/17/19 20:00 64 02/17/19 20:00 97.6 64 20 124/65 (84) 100 02/17/19 19:44 64 18 98 Nasal Cannula 2.0 28 02/17/19 19:35 Nasal Cannula 2.0 28 02/17/19 19:35 97 Nasal Cannula 2.0 28 02/17/19 19:33 63 18 Nasal Cannula 2.0 28 02/17/19 19:30 63 18 97 Nasal Cannula 2.0 28 02/17/19 18:15 125/61 02/17/19 18:15 125/61 02/17/19 16:00 97.5 63 18 125/61 (82) 96 02/17/19 16:00 61 02/17/19 15:35 63 18 98 Room Air 21 02/17/19 15:29 62 18 96 Room Air 21 02/17/19 12:37 131/71 02/17/19 12:37 131/71 02/17/19 12:00 60 02/17/19 12:00 98.1 61 20 131/71 (91) 96 Intake and Output 02/17/19 02/18/19 18:59 06:59 Intake Total 240 ml Output Total 400 ml Balance -160 ml Intake Oral 240 ml Output Urine Total 400 ml # Voids 1 2 # Bowel Movements 2 1 Current Medications Medications (Trade) Dose Ordered Sig/Soumya Route PRN Reason Start Time Stop Time Status Last Admin Dose Admin Acetaminophen (Tylenol) 650 mg Q4H PRN ORAL Mild Pain (Pain Scale 1-3) 02/14/19 16:45 03/16/19 16:44 Albuterol/ Ipratropium (Albuterol/ Ipratropium) 3 ml Q4HRT HHN 02/17/19 11:00 02/22/19 10:59 02/18/19 11:04 Albuterol/ Ipratropium (Albuterol/ Ipratropium) 3 ml Q6H PRN HHN Shortness of Breath 02/14/19 16:45 02/19/19 16:44 02/17/19 08:15 Aspirin (ASA) 81 mg DAILY ORAL 02/14/19 18:00 03/16/19 17:59 02/18/19 09:10 Atorvastatin Calcium (Lipitor) 10 mg BEDTIME ORAL 02/14/19 21:00 03/16/19 20:59 02/17/19 20:31 Carvedilol (Coreg) 6.25 mg EVERY 12 HOURS ORAL 02/15/19 21:00 03/16/19 20:59 02/18/19 09:10 Dabigatran (Pradaxa) 75 mg EVERY 12 HOURS ORAL 02/14/19 21:00 03/16/19 20:59 02/18/19 09:11 Dextrose (Dextrose 50%) 25 ml Q30M PRN IV Hypoglycemia 02/14/19 16:45 03/16/19 16:44 Dextrose (Dextrose 50%) 50 ml Q30M PRN IV Hypoglycemia 02/14/19 16:45 03/16/19 16:44 Docusate Sodium (Colace) 100 mg TID ORAL 02/16/19 09:00 03/16/19 20:59 02/18/19 09:09 Donepezil HCl (Aricept) 5 mg QHS ORAL 02/16/19 21:00 03/18/19 20:59 02/17/19 20:31 Escitalopram Oxalate (Lexapro) 10 mg DAILY ORAL 02/15/19 09:00 03/17/19 08:59 02/18/19 09:10 EZETIMIBE (Zetia) 10 mg DAILY ORAL 02/15/19 09:00 03/17/19 08:59 02/18/19 09:09 Fluticasone Propionate (Flonase) 1 spray BIDPRN PRN NASAL allergies 02/14/19 16:45 03/16/19 16:44 Furosemide (Lasix) 20 mg DAILY ORAL 02/15/19 09:00 03/17/19 08:59 02/18/19 09:10 Guaifenesin (Robitussin) 200 mg Q6H PRN ORAL For Cough 02/15/19 12:30 03/17/19 12:29 02/15/19 13:04 Hydralazine HCl (Apresoline) 20 mg Q6HR ORAL 02/17/19 12:00 03/18/19 00:00 02/18/19 05:31 Isosorbide Dinitrate (Isordil) 10 mg Q6HR ORAL 02/16/19 00:00 03/18/19 00:00 02/18/19 05:30 Losartan Potassium (Cozaar) 50 mg DAILY ORAL 02/15/19 09:00 03/17/19 08:59 02/18/19 09:10 Ondansetron HCl (Zofran) 4 mg Q6H PRN IVP Nausea & Vomiting 02/14/19 16:45 03/16/19 16:44 Tamsulosin HCl (Flomax) 0.4 mg Q12HR ORAL 02/16/19 09:00 03/18/19 08:59 02/18/19 09:10 Tramadol HCl (Ultram) 50 mg Q6H PRN ORAL For Pain 02/14/19 16:45 02/21/19 16:44 Height (Feet): 5 Height (Inches): 4.00 Weight (Pounds): 157 General Appearance: no apparent distress Objective no change Robel Novak MD Feb 18, 2019 11:45
[2019-02-18 12:00] VITALS: BP 124/58
--- NOTE | 2019-02-18 12:25 | NUR ---
NURSE NOTES: I spoke with the patient's daughter. Carrie provides home health services to the patient. Their number is [phone], Hilda is the manager contact.
--- NOTE | 2019-02-18 12:40 | NUR ---
DISCHARGE SWALLOW/SPEECH THERAPY SUMMARY: PATIENT SEEN FOR DYSPHAGIA, SEE SWALLOW EVALUATION REPORT. GOALS FOR INTAKE MET FOR [facility] SOFT FINELY CHOPPED DIET WITH NECTAR THICK LIQUIDS W/O OVERT ASPIRATION REPORTED. GOALS MET FOR STAFF/CAREGIVER EDUCATED/TRAINED IN POSTED ASP/REFLUX PRECAUTIONS. CG TOLD HOW TO HAVE PATIENT ARRANGE FOR OUTPT MOD BARIUM SWALLOW STUDY AT LOCAL [facility] [place] [facility] [place] NOT COM[place] DUE TO SCHEDULING CONFLICTS. CG ALSO GIVEN WRITTEN INFORMATION ON GETTING "THICK IT". PLAN: F/UP WITH [facility] OR OP SWALLOW/SPEECH PATHOLOGIST FOR DYSPHAGIA MANAGEMENT AND TX AND MOD BARIUM SWALLOW STUDY. D/W RN AND CG
--- NOTE | 2019-02-18 14:25 | Pulmonology Progress Note ---
Assessment/Plan Assessment/Plan ASSESSMENT: The patient is a very pleasant 88-year-old male with a history of ischemic cardiomyopathy, congestive heart failure, pulmonary hypertension, mitral regurgitation, tricuspid regurgitation, atrial fibrillation , hypertension, pacemaker, hyperlipidemia, CKD, right bundle-branch block, former smoker and drinker, recently admitted to [facility] with cough productive of yellow phlegm and shortness of breath, thought to be secondary to community- acquired tracheobronchitis and decompensated heart failure, now presenting with toxic metabolic encephalopathy and altered mental status. PROBLEM LIST: 1. Altered mental status likely toxic metabolic encephalopathy on top of underlying dementia. 2. Stable left upper lobe ground-glass opacity 1 cm (was 8 mm in 2012). 3. Congestive heart failure with acute decompensated heart failure. 4. Ischemic cardiomyopathy. 5. Pulmonary hypertension. 6. MR, TR. 7. Atrial fibrillation on anticoagulation. 8. History of pacemaker. 9. Hypertension, hyperlipidemia. 10. CKD. 11. History of ETOH and tobacco use. TREATMENT PLAN: 1. Optimize pulmonary hygiene/mobilize as tolerated. 2. Etmhn-hyt-pzrew and p.r.n. DuoNebs. 3. Continue Flonase. 4. Observe off antibiotics. 5. Monitor volumes and renal function, cautious diuresis as permitted. 6. Monitor mental status. 7. The patient can theoretically have PFTs as an outpatient if within goals of care. 8. 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 9. Full Code. 10. Continue to discuss goals of care. 11. DVT prophylaxis. The patient is on anticoagulation. 12. Aspiration precautions, STOCK LAYER recs Subjective Allergies: Coded Allergies: No Known Allergies (Unverified , 02/14/19) Subjective AFVSS O2 needs stable Less cough congestion wheezing no CP no FC Objective Last 24 Hour Vital Signs Date Time Temp Pulse Resp B/P (MAP) Pulse Ox O2 Delivery O2 Flow Rate FiO2 02/18/19 14:19 78 20 99 Nasal Cannula 2.0 28 02/18/19 14:08 68 16 97 Nasal Cannula 2.0 28 02/18/19 12:23 124/58 02/18/19 12:22 124/58 02/18/19 12:00 97.3 60 20 124/58 (80) 99 02/18/19 11:49 60 02/18/19 11:17 70 20 98 Nasal Cannula 2.0 28 02/18/19 11:04 74 18 96 Nasal Cannula 2.0 28 02/18/19 09:10 62 136/65 02/18/19 09:10 136/65 02/18/19 09:00 Nasal Cannula 2.0 02/18/19 08:00 97.7 62 18 136/65 (88) 100 02/18/19 08:00 61 02/18/19 06:42 Nasal Cannula 2.0 28 02/18/19 06:42 98 Nasal Cannula 2.0 28 02/18/19 06:42 2.0 28 02/18/19 06:42 Nasal Cannula 2.0 28 02/18/19 05:31 111/62 02/18/19 05:30 111/62 02/18/19 04:00 97.7 60 20 111/62 (78) 100 02/18/19 04:00 65 02/18/19 03:18 61 18 97 Nasal Cannula 2.0 28 02/18/19 03:04 65 18 97 Nasal Cannula 2.0 28 02/18/19 00:07 119/66 02/18/19 00:07 119/66 02/18/19 00:00 98.7 62 20 119/66 (83) 100 02/18/19 00:00 60 02/17/19 23:16 64 18 98 Nasal Cannula 2.0 28 02/17/19 23:07 64 18 97 Nasal Cannula 2.0 28 02/17/19 21:00 Room Air 02/17/19 20:31 64 124/65 02/17/19 20:00 64 02/17/19 20:00 97.6 64 20 124/65 (84) 100 02/17/19 19:44 64 18 98 Nasal Cannula 2.0 28 02/17/19 19:35 Nasal Cannula 2.0 28 02/17/19 19:35 97 Nasal Cannula 2.0 28 02/17/19 19:33 63 18 Nasal Cannula 2.0 28 02/17/19 19:30 63 18 97 Nasal Cannula 2.0 28 02/17/19 18:15 125/61 02/17/19 18:15 125/61 4/22/19 16:00 97.5 63 18 125/61 (82) 96 02/17/19 16:00 61 02/17/19 15:35 63 18 98 Room Air 21 02/17/19 15:29 62 18 96 Room Air 21 Intake and Output 02/17/19 02/18/19 18:59 06:59 Intake Total 240 ml Output Total 400 ml Balance -160 ml Intake Oral 240 ml Output Urine Total 400 ml # Voids 1 2 # Bowel Movements 2 1 General Appearance: no acute distress, cachetic HEENT: normocephalic, atraumatic, anicteric, mucous membranes moist Respiratory/Chest: lungs clear - but distant Cardiovascular: normal peripheral pulses, normal rate, regular rhythm Abdomen: normal bowel sounds, soft, non tender, no organomegaly, non distended , no mass Extremities: no cyanosis, no clubbing, no edema Current Medications Medications (Trade) Dose Ordered Sig/Soumya Route PRN Reason Start Time Stop Time Status Last Admin Dose Admin Acetaminophen (Tylenol) 650 mg Q4H PRN ORAL Mild Pain (Pain Scale 1-3) 02/14/19 16:45 03/16/19 16:44 Albuterol/ Ipratropium (Albuterol/ Ipratropium) 3 ml Q4HRT HHN 02/17/19 11:00 02/22/19 10:59 02/18/19 14:07 Albuterol/ Ipratropium (Albuterol/ Ipratropium) 3 ml Q6H PRN HHN Shortness of Breath 02/14/19 16:45 02/19/19 16:44 02/17/19 08:15 Aspirin (ASA) 81 mg DAILY ORAL 02/14/19 18:00 03/16/19 17:59 02/18/19 09:10 Atorvastatin Calcium (Lipitor) 10 mg BEDTIME ORAL 02/14/19 21:00 03/16/19 20:59 02/17/19 20:31 Carvedilol (Coreg) 6.25 mg EVERY 12 HOURS ORAL 02/15/19 21:00 03/16/19 20:59 02/18/19 09:10 Dabigatran (Pradaxa) 75 mg EVERY 12 HOURS ORAL 02/14/19 21:00 03/16/19 20:59 02/18/19 09:11 Dextrose (Dextrose 50%) 25 ml Q30M PRN IV Hypoglycemia 02/14/19 16:45 03/16/19 16:44 Dextrose (Dextrose 50%) 50 ml Q30M PRN IV Hypoglycemia 02/14/19 16:45 03/16/19 16:44 Docusate Sodium (Colace) 100 mg TID ORAL 02/16/19 09:00 03/16/19 20:59 02/18/19 12:23 Donepezil HCl (Aricept) 5 mg QHS ORAL 02/16/19 21:00 03/18/19 20:59 02/17/19 20:31 Escitalopram Oxalate (Lexapro) 10 mg DAILY ORAL 02/15/19 09:00 03/17/19 08:59 02/18/19 09:10 EZETIMIBE (Zetia) 10 mg DAILY ORAL 02/15/19 09:00 03/17/19 08:59 02/18/19 09:09 Fluticasone Propionate (Flonase) 1 spray BIDPRN PRN NASAL allergies 02/14/19 16:45 03/16/19 16:44 Furosemide (Lasix) 20 mg DAILY ORAL 02/15/19 09:00 03/17/19 08:59 02/18/19 09:10 Guaifenesin (Robitussin) 200 mg Q6H PRN ORAL For Cough 02/15/19 12:30 03/17/19 12:29 02/15/19 13:04 Hydralazine HCl (Apresoline) 20 mg Q6HR ORAL 02/17/19 12:00 03/18/19 00:00 02/18/19 12:22 Isosorbide Dinitrate (Isordil) 10 mg Q6HR ORAL 02/16/19 00:00 03/18/19 00:00 02/18/19 12:23 Losartan Potassium (Cozaar) 50 mg DAILY ORAL 02/15/19 09:00 03/17/19 08:59 02/18/19 09:10 Ondansetron HCl (Zofran) 4 mg Q6H PRN IVP Nausea & Vomiting 02/14/19 16:45 03/16/19 16:44 Tamsulosin HCl (Flomax) 0.4 mg Q12HR ORAL 02/16/19 09:00 03/18/19 08:59 02/18/19 09:10 Tramadol HCl (Ultram) 50 mg Q6H PRN ORAL For Pain 02/14/19 16:45 02/21/19 16:44 Yuval Robles MD Feb 18, 2019 14:25
--- NOTE | 2019-02-18 14:30 | NUR ---
NURSE NOTES: communicated with the patient spouse and daughter regarding discharge with home health order. Per Lesley/ patient's daughter, she informed that the transportation will be here around 1730. Will continue plan of care.
--- NOTE | 2019-02-18 14:36 | NUR ---
RD ASSESSMENT & RECOMMENDATIONS SEE CARE ACTIVITY FOR COMPLETE ASSESSMENT DAILY ESTIMATED NEEDS: Needs based on cardiac, DM / 62kg kg adj 25-30 kcals/kg 0772-4071 total kcals 1-1.5 g protein/kg 62-93 g total protein Fluid per MD, on lasix NUTRITION DIAGNOSIS: * Altered nutrition related lab values R/T cardiac hx, renal dysfunction, h/o DM, clinical condition as evidenced by elev creat (2.3), elev BNP (87244), elev A1C=6.5. CURRENT DIET: Cardiac ms finely chopped w/ NTL PO DIET RECOMMENDATIONS: LOW NA, CCHO LOW diet ADDITIONAL RECOMMENDATIONS: * Daily wts on calibrated bedscale or standing- on lasix * Lytes daily, replete as needed (wnl) * Rec accucheck/ need for hypoglycemic agent w/ A1C=6.5 * Monitor for cont good po intake * Diet texture per [employer]
--- NOTE | 2019-02-18 15:11 | Cardiology Progress Note ---
Assessment/Plan Assessment/Plan chf MR Pulm htn TR afib hs of pacer khurram vasquez and david to fu with me as out pt will need fu with dr pérez for icd upgrade in near futuer Subjective Cardiovascular: Denies: chest pain, lightheadedness Gastrointestinal/Abdominal: Denies: abdominal pain Genitourinary: Denies: burning Objective Last 24 Hour Vital Signs Date Time Temp Pulse Resp B/P (MAP) Pulse Ox O2 Delivery O2 Flow Rate FiO2 02/18/19 14:19 78 20 99 Nasal Cannula 2.0 28 02/18/19 14:08 68 16 97 Nasal Cannula 2.0 28 02/18/19 12:23 124/58 02/18/19 12:22 124/58 02/18/19 12:00 97.3 60 20 124/58 (80) 99 02/18/19 11:49 60 02/18/19 11:17 70 20 98 Nasal Cannula 2.0 28 02/18/19 11:04 74 18 96 Nasal Cannula 2.0 28 02/18/19 09:10 62 136/65 02/18/19 09:10 136/65 02/18/19 09:00 Nasal Cannula 2.0 02/18/19 08:00 97.7 62 18 136/65 (88) 100 02/18/19 08:00 61 02/18/19 06:42 Nasal Cannula 2.0 28 02/18/19 06:42 98 Nasal Cannula 2.0 28 02/18/19 06:42 2.0 28 02/18/19 06:42 Nasal Cannula 2.0 28 02/18/19 05:31 111/62 02/18/19 05:30 111/62 02/18/19 04:00 97.7 60 20 111/62 (78) 100 02/18/19 04:00 65 02/18/19 03:18 61 18 97 Nasal Cannula 2.0 28 02/18/19 03:04 65 18 97 Nasal Cannula 2.0 28 02/18/19 00:07 119/66 02/18/19 00:07 119/02/18/19 00:00 98.7 62 20 119/66 (83) 100 02/18/19 00:00 60 02/17/19 23:16 64 18 98 Nasal Cannula 2.0 28 02/17/19 23:07 64 18 97 Nasal Cannula 2.0 28 02/17/19 21:00 Room Air 02/17/19 20:31 64 124/65 02/17/19 20:00 64 02/17/19 20:00 97.6 64 20 124/65 (84) 100 02/17/19 19:44 64 18 98 Nasal Cannula 2.0 28 02/17/19 19:35 Nasal Cannula 2.0 28 02/17/19 19:35 97 Nasal Cannula 2.0 28 02/17/19 19:33 63 18 Nasal Cannula 2.0 28 02/17/19 19:30 63 18 97 Nasal Cannula 2.0 28 02/17/19 18:15 125/61 02/17/19 18:15 125/61 02/17/19 16:00 97.5 63 18 125/61 (82) 96 02/17/19 16:00 61 02/17/19 15:35 63 18 98 Room Air 21 02/17/19 15:29 62 18 96 Room Air 21 General Appearance: no apparent distress, alert Cardiovascular: irregularly irregular Respiratory/Chest: lungs clear, normal breath sounds Abdomen: normal bowel sounds, non tender, soft Extremities: no swelling Intake and Output 02/17/19 02/18/19 18:59 06:59 Intake Total 240 ml Output Total 400 ml Balance -160 ml Intake Oral 240 ml Output Urine Total 400 ml # Voids 1 2 # Bowel Movements 2 1 Fredo Lozano MD Feb 18, 2019 15:11
[2019-02-18 16:00] VITALS: BP 115/60
--- NOTE | 2019-02-18 17:15 | NUR ---
NURSE NOTES: Discharge instruction and education provided to patient and patient's spouse and verbalized understanding. The patient inventory checked at the bedside with the patient's spouse. Removed tele monitor and IV access on the last minute. The patient denies of acute distress or shortness of breath. The patient's safety ensured before discharge.
--- NOTE | 2019-02-18 18:01 | NUR ---
NURSE NOTES: Patient discharged in stable condition. Patient transported via wheel chair to the [facility] and was transported home in a private vehicle. Patient did not display any signs of distress or SOB.
--- NOTE | 2019-05-16 12:22 | Cardiology Report ---
APPROVED REPORT EKG Measurement Heart [id number] Electronic pacemaker with occasional premature ventricular complexes Abnormal ECG
--- NOTE | 2019-05-16 12:22 | Cardiology Report ---
APPROVED REPORT EKG Measurement Heart [id number] Abnormal ECG Electronic pacemaker
== END 2019-02-18 18:00 | disposition home or self-care (01) | DRG 52 ==
LOC: EDBD 13:41 → EMR 14:06 → 2E 14:55 → EDBEDREQSVC 14:56 → EDBEDREQ 16:51 → 2E 19:46
DX: G93.41 Metabolic encephalopathy (principal); I21.A1 Myocardial infarction type 2; I27.20 Pulmonary hypertension, unspecified; N18.4 Chronic kidney disease, stage 4 (severe); I13.0 Hypertensive heart and chronic kidney disease with heart failure and stage 1 through stage 4 chronic kidney disease, or unspecified chronic kidney disease; I50.42 Chronic combined systolic (congestive) and diastolic (congestive) heart failure; I36.1 Nonrheumatic tricuspid (valve) insufficiency; I48.91 Unspecified atrial fibrillation; Z87.891 Personal history of nicotine dependence; Z95.0 Presence of cardiac pacemaker; Z79.01 Long term (current) use of anticoagulants; I34.0 Nonrheumatic mitral (valve) insufficiency; F03.90 Unspecified dementia, unspecified severity, without behavioral disturbance, psychotic disturbance, mood disturbance, and anxiety; N40.0 Benign prostatic hyperplasia without lower urinary tract symptoms; I25.5 Ischemic cardiomyopathy; Z86.73 Personal history of transient ischemic attack (TIA), and cerebral infarction without residual deficits; E78.5 Hyperlipidemia, unspecified; I45.10 Unspecified right bundle-branch block; N39.0 Urinary tract infection, site not specified
CPT/HCPCS: 36415; 36600; 70450; 71045; 80053; 80061; 81003; 82550; 82553; 82607; 82728; 82746; 82803; 82962; 82977; 83036; 83540; 83550; 83605; 83690; 83735; 83880; 84100; 84443; 84484; 84550; 85025; 86140; 87040; 87086; 87181; 92610; 93005; 93306; 94640; 94664; 94760; 99285; J7620

== ENCOUNTER 2019-02-19 04:04 | Emergency (ER) | payer MEDICARE, OTHER ==
[~2019-02-19] VITALS: Ht 167.6 cm; Wt 54.4 kg
[~2019-02-19 04:04] MED LIST changes: +ACETAMINOPHEN325 M1 ORAL; +AFRIN NASAL SPR30 ML NASAL; +ELIQUIS2.5 MG PO; +ENTRESTO 24 MG1 EACH PO; +FERROUS SULFAT325 MG ORAL; +FOLIC ACID1 MG ORAL; +LOPERAMIDE2 MG PO; +MULTI VITAMIN1 EACH ORAL; +VITAMIN D250000 UNI1 ORAL; +ZYRTEC10 MG ORAL
[2019-02-19 04:08] VITALS: BP 149/69
--- NOTE | 2019-02-19 04:08 | NUR ---
ED Nurse Note: Patient presents BIBA from home. patient has complaints of oliguria for the last few hours.
--- NOTE | 2019-02-19 04:20 | NUR ---
ED Nurse Note: IV started, labs drawn, urine sample collected via straight catheter. Patient awaiting results, at bedside, will continue to monitor.
[2019-02-19] MEDS ORDERED: Morphine Sulfate 2mg/ml Inj(IV/IM USE ONLY) IVP ONE (04:30)
--- NOTE | 2019-02-19 04:34 | Emergency Room Report ---
History of Present Illness General Chief Complaint: Male Urogenital Problems Source: Patient, Family Member, Medical Record, EMS Present Illness HPI Is an 88-year-old male with multiple medical problem. He was just discharged from the hospital yesterday for altered mental status. He presents with chief complaint of abdominal pain. Onset tonight. Complaining of pain diffusely. Mostly over the suprapubic area. No nausea no vomiting. No fever chills but denies any other complaint. Pain is 7 out of 10. Allergies: Coded Allergies: No Known Allergies (Unverified , 02/14/19) Patient History Past Medical History: see triage record, old chart reviewed, HTN, CAD, AFib Past Surgical History: pacemaker Pertinent Family History: none Social History: Denies: smoking Immunizations: other Reviewed Nursing Documentation: PMH: Agreed; PSxH: Agreed Nursing Documentation-PMH Hx Cardiac Problems: Yes Hx Hypertension: Yes Hx Pacemaker: Yes - CHRISTIE Hx Asthma: No Hx COPD: No Hx Diabetes: No Hx Cancer: No Hx Gastrointestinal Problems: No Hx Dialysis: No Hx Neurological Problems: Yes Hx Cerebrovascular Accident: Yes Hx Seizures: No Hx Dizziness: Yes Hx Syncope: Yes Review of Systems Eye: Denies: eye pain, blurred vision ENT: Denies: ear pain, nose congestion, throat swelling Respiratory: Denies: cough, shortness of breath Cardiovascular: Denies: chest pain, palpitations Gastrointestinal: Reports: abdominal pain; Denies: diarrhea, nausea, vomiting Musculoskeletal: Denies: back pain, joint pain Skin: Denies: rash Neurological: Denies: headache, numbness Endocrine: Denies: increased thirst, increased urine Hematologic/Lymphatic: Denies: easy bruising All Other Systems: negative except mentioned in HPI Physical Exam Vital Signs Date Time Temp Pulse Resp B/P (MAP) Pulse Ox O2 Delivery O2 Flow Rate FiO2 02/19/19 04:06 98.4 74 16 149/69 95 Room Air vitals normal Sp02 EP Interpretation: reviewed, normal General Appearance: well appearing, no apparent distress, alert Head: normocephalic, atraumatic Eyes: bilateral eye PERRL, bilateral eye EOMI ENT: hearing grossly normal, normal pharynx Neck: full range of motion, supple, no meningismus Respiratory: chest non-tender, lungs clear, normal breath sounds Cardiovascular #1: regular rate, rhythm, no murmur Gastrointestinal: normal bowel sounds, no mass, no organomegaly, no bruit, non- distended, tenderness - Mostly suprapubic Musculoskeletal: back normal, gait/station normal, normal range of motion Neurologic: alert, oriented x3 Psychiatric: mood/affect normal Skin: warm/dry Medical Decision Making Diagnostic Impression: Primary Impression: Abdominal pain Qualified Codes: R10.84 - Generalized abdominal pain Additional Impressions: CKD (chronic kidney disease) Qualified Codes: N18.9 - Chronic kidney disease, unspecified Anemia Qualified Codes: D64.9 - Anemia, unspecified Pleural effusion CHF exacerbation Qualified Codes: I50.9 - Heart failure, unspecified ER Course Patient presents with mild vague generalized abdominal pain. Labs unremarkable. CT ending. He has no evidence of any infection. Patient is resting comfortably and oxygenation is above 95% on room air. CT scan however showed a large right-sided pleural effusion. He does have this history of CHF. I gave him Lasix here. Will admit versus transfer for further workup. Lab Results Impression labs at baseline EKG Diagnostic Results Rate: normal Rhythm: NSR ST Segments: no acute changes - Paced rhythm Rhythm Strip Diag. Results EP Interpretation: yes Rate: 60 Rhythm: NSR, no PVC's, no ectopy Chest X-Ray Diagnostic Results Chest X-Ray Diagnostic Results : Chest X-Ray Ordered: Yes # of Views/Limited/Complete: 1 View Indication: Shortness of Breath EP Interpretation: Yes Interpretation: no consolidation, no pneumothorax, other - Cardiomegaly, right pleural effusion Impression: Other - CHF Electronically Signed by: Nayan Painter MD CT/MRI/US Diagnostic Results CT/MRI/US Diagnostic Results : Imaging Test Ordered: CT abdomen and pelvis Impression Read by radiologist. Moderate size right pleural effusion. Small left pleural effusion. Cardiomegaly. Generalize edema and soft tissue and trace free fluid. Age indeterminate compression fracture of T10. Last Vital Signs Date Time Temp Pulse Resp B/P (MAP) Pulse Ox O2 Delivery O2 Flow Rate FiO2 02/19/19 04:06 98.4 74 16 149/69 95 Room Air Status: improved Disposition: ADMITTED INPATIENT Condition: Serious Nayan Painter MD Feb 19, 2019 04:34
[2019-02-19 04:43] LABS: BASOPHILS % (AUTO) 0.9 % (0.0-2.0); EOSINOPHILS % (AUTO) 4.7 % (0.0-3.0); HEMATOCRIT 29.5 % (42.0-52.0); HEMOGLOBIN 9.4 G/DL (14.2-18.0); LYMPHOCYTES % (AUTO) 19.4 % (20.0-45.0); MEAN CORPUSCULAR VOLUME 96 FL (80-99); MONOCYTES % (AUTO) 9.5 % (1.0-10.0); NEUTROPHILS % (AUTO) 65.5 % (45.0-75.0); PLATELET COUNT 187 K/UL (150-450); RED BLOOD COUNT 3.08 M/UL (4.70-6.10); RED CELL DISTRIBUTION WIDTH 14.1 % (11.6-14.8); WHITE BLOOD COUNT 5.7 K/UL (4.8-10.8)
[2019-02-19 04:43] LABS: APPEARANCE,URINE CLEAR; BILIRUBIN, URINE NEGATIVE (NEGATIVE); COLOR,URINE PALE YELLOW; GLUCOSE, URINE (UA) NEGATIVE (NEGATIVE); KETONES,URINE NEGATIVE (NEGATIVE); LEUKOCYTE ESTERASE ,URINE 1+ (NEGATIVE); NITRITE,URINE NEGATIVE (NEGATIVE); PH,URINE 5 (4.5-8.0); PROTEIN,URINE NEGATIVE (NEGATIVE); UROBILINOGEN,URINE NORMAL MG/DL (0.0-1.0)
[2019-02-19 04:56] LABS: ANION GAP 6 mmol/L (5-15); BLOOD UREA NITROGEN 50 mg/dL (7-18); CALCIUM 8.2 MG/DL (8.5-10.1); CARBON DIOXIDE 28 MMOL/L (21-32); CHLORIDE 102 MMOL/L (98-107); CREATININE 2.4 MG/DL (0.55-1.30); POTASSIUM 4.3 MMOL/L (3.5-5.1); SODIUM 136 MMOL/L (136-145)
--- NOTE | 2019-02-19 04:58 | NUR ---
ED Nurse Note: Patient went down for CT.
--- NOTE | 2019-02-19 05:37 | NUR ---
ED Nurse Note: Patient returned from CT.
[2019-02-19 06:14] VITALS: BP 123/53
--- NOTE | 2019-02-19 06:15 | NUR ---
ED Nurse Note: Patient resting comfortably, vital signs stable. at bedside, will continue to monitor.
--- NOTE | 2019-02-19 08:00 | NUR ---
ED Nurse Note:F/C was incerted for urinary retension per MD order
[2019-02-19 08:09] VITALS: BP 130/72
--- NOTE | 2019-02-19 08:15 | NUR ---
ED Nurse Note:called with report- was told to call back in 5 min
--- NOTE | 2019-02-19 08:33 | NUR ---
ED Nurse Note:report given to [facility]- RN Ruby
[2019-02-19 09:52] VITALS: BP 115/69
[2019-02-19 09:53] VITALS: BP 115/69
--- NOTE | 2019-02-19 09:54 | NUR ---
ED Nurse Note:pt. was picked up by [facility] for transfer to another hospital, report given ,condition stable
--- NOTE | 2019-02-19 10:37 | Diagnostic Imaging Report ---
Indication: Abdominal pain Technique: Spiral acquisitions obtained through the abdomen and pelvis. No oral contrast utilized, per emergency room physician request No IV contrast utilized, per referring physician request.. Multiplanar reconstructions were generated. Total dose length product 932.58 mGycm. CTDIvol(s) 17.93 mGy. Dose reduction achieved using automated exposure control Comparison: None Findings: The appendix is not definitely visualized, but there are no findings to suggest acute appendicitis. There is distal colonic diverticulosis. No evidence of diverticulitis. Surgical clips are seen in the left inguinal region. There are small fat-containing bilateral inguinal hernias. No small bowel distention. No free or loculated intraperitoneal gas or fluid is evident. There is edema of the mesenteric and retroperitoneal fat, as well as of the subcutaneous fat. Lack of IV contrast limits assessment of the solid organs. Liver demonstrates surface nodularity, consistent with cirrhosis. No focal abnormality. The gallbladder demonstrates equivocal minimal mural thickening. Bile ducts, pancreas, spleen are unremarkable. There is a solid mass which demonstrates nonspecific soft tissue attenuation, measures 2.4 x 1 cm in diameter. This is either arising from adjacent to the right adrenal, favor the latter. The left adrenal is unremarkable. The kidneys are slightly atrophic. The right kidney demonstrates a cyst in the lower pole as well as an exophytic subcentimeter low-attenuation lesion which is too small to characterize area of the left kidney demonstrates upper pole subcentimeter low-attenuation lesions which are too small to characterize as well as an upper pole cyst. No mesenteric or retroperitoneal mass or adenopathy. No pelvic mass or adenopathy. Calcification is seen in the prostate. The included lung bases demonstrate a large right pleural effusion and a small left pleural effusion. There are some compressive atelectatic changes at both lung bases. There are questionably one or more small nodules in the right middle lobe. The bones demonstrate a compression fracture deformity of the T10 vertebral body with considerable sclerosis. There is also a mild compression fracture deformity of the L1 vertebral body. There are mild degenerative changes of the lumbar spine. Impression: Large right and small left pleural effusions. Resultant compressive atelectasis Small right middle lobe nodules. Consider follow-up CT in 6-12 months if there risk factors for lung carcinoma Soft tissue mass adjacent to the right adrenal, could represent a prominent lymph node but other etiologies possible. Consider further follow-up with MRI if clinically indicated is a short interval follow-up CT Generalized edema of the mesenteric and retroperitoneal fat as well as of the subcutaneous fat Evidence of hepatic cirrhosis Equivocal mural thickening of the gallbladder, could be related to the above. Consider ultrasound if there is clinical suspicion for acute cholecystitis Colonic diverticulosis. No evidence of diverticulitis. T10 and possible L1 vertebral body compression fractures, age indeterminate. Consider MRI for better characterization if clinically relevant Bilateral renal cysts. Bilateral subcentimeter low-attenuation renal lesions, too small to characterize, most likely benign simple cortical cysts. No further follow-up necessary Incidental findings as noted, including degenerative lumbar spondylosis, evidence of prior left inguinal surgery, fat-containing bilateral inguinal hernias, prostatic calcifications This agrees with the preliminary interpretation provided overnight by [facility] teleradiology service. The CT scanner at [facility] is accredited by the [employer] and the scans are performed using protocols designed to limit radiation exposure to as low as reasonably achievable to attain images of sufficient resolution adequate for diagnostic evaluation.
--- NOTE | 2019-02-19 15:31 | Diagnostic Imaging Report ---
Indication: Shortness of breath Technique: One view of the chest Comparison: February 14, 2019 Findings: There is increased hazy opacity right lung, likely reflects increasing pleural fluid, possibly also increasing hazy infiltrate. Left hemidiaphragm is more obscured, likely reflecting increasing pleural fluid or atelectasis at the left lung base. The heart is enlarged. Left chest pacemaker again demonstrated. Impression: Increasing right lung opacity since February 14, 2019, likely increasing pleural fluid, possibly increasing consolidation as well. Increasing left basilar opacity, as described Stable cardiomegaly
== END 2019-02-19 10:20 | disposition short-term general hospital (02) ==
LOC: EDBD 04:04 → EDUNIT# 04:04 → EMR 04:30
DX: R10.84 Generalized abdominal pain (principal); I12.9 Hypertensive chronic kidney disease with stage 1 through stage 4 chronic kidney disease, or unspecified chronic kidney disease; N18.9 Chronic kidney disease, unspecified; Z95.0 Presence of cardiac pacemaker; Z86.73 Personal history of transient ischemic attack (TIA), and cerebral infarction without residual deficits; D63.1 Anemia in chronic kidney disease; J90 Pleural effusion, not elsewhere classified; I13.0 Hypertensive heart and chronic kidney disease with heart failure and stage 1 through stage 4 chronic kidney disease, or unspecified chronic kidney disease; I50.9 Heart failure, unspecified; I51.7 Cardiomegaly
CPT/HCPCS: 36415; 71045; 74176; 80048; 81001; 83880; 84484; 85025; 93005; 96374; 96375; 99284; J1940; J2270; J2405

== ENCOUNTER 2019-04-26 11:42 | Emergency (ER) | payer MEDICARE, OTHER ==
[~2019-04-26] VITALS: Ht 167.6 cm; Wt 68.0 kg
[2019-04-26 11:50] VITALS: BP 106/56
--- NOTE | 2019-04-26 12:15 | NUR ---
ED Nurse Note: Luggage fell onto left foot/ c/o pain, swelling, bruised over left 2nd & 3rd toes. Patient usually walks with a cane and daughter noticed limping. Patient resting in bed. No facial grimacing or guarding noted. Patient has dressing on BUE from abrasion. Patient taking ASA and Eliquis daily.
--- NOTE | 2019-04-26 13:03 | Diagnostic Imaging Report ---
EXAM: XR Left Foot Complete, 3 or More Views CLINICAL HISTORY: TRAUMA TECHNIQUE: Frontal, lateral and oblique views of the left foot. COMPARISON: None FINDINGS: Bones/joints: No displaced fracture or dislocation identified. Osteopenia. Degenerative changes of the left first MTP joint. Degenerative changes of the interphalangeal joints. Soft tissues: Vascular calcifications. IMPRESSION: No displaced fracture or dislocation identified.
[2019-04-26] MEDS ORDERED: Bacitracin Oint UD TOPIC ONE ×2 (13:15)
--- NOTE | 2019-04-26 13:25 | NUR ---
ED Nurse Note: Patient has skin tear over BUE. Applied Bacitracin ointment and dry dressing as ordered. Ortho shoe to left foot applied.
--- NOTE | 2019-04-26 13:28 | NUR ---
ED Nurse Note: Patient is discharged from medical care. D/C instruction and prescription given to patient/family member and verbalized understanding of it. Ambuated out with steady gait with all his belongings.
--- NOTE | 2019-04-26 21:07 | Emergency Room Report ---
History of Present Illness General Chief Complaint: Lower Extremity Injury Source: Patient, Family Member, Medical Record Present Illness HPI The patient is an 88-year-old male accompanied by daughter presenting for foot pain. The daughter states that the patient was taking down a piece of luggage from a shelf, the luggage fell and struck his foot. Weight of luggage approximately 15 pounds. The patient states that he attempted to stop the luggage from falling which struck his arms and he began to bleed. He is on Xarelto. Pain is primarily to the left foot described as an 8 out of 10 dull ache. Worse with walking. They have used Tylenol at home which does help. The patient and the daughter deny any head injury or other symptoms including nausea, vomiting, headache, blurred vision, neck pain, shortness of breath, chest pain Allergies: Coded Allergies: No Known Allergies (Unverified , 02/14/19) Patient History Past Medical History: see triage record Pertinent Family History: none Reviewed Nursing Documentation: PMH: Agreed; PSxH: Agreed Nursing Documentation-PMH Past Medical History: No History, Except For Hx Cardiac Problems: Yes Hx Hypertension: Yes Hx Pacemaker: Yes - CHRISTIE Hx Asthma: No Hx COPD: No Hx Diabetes: No Hx Cancer: No Hx Gastrointestinal Problems: No Hx Dialysis: No Hx Neurological Problems: Yes Hx Cerebrovascular Accident: Yes Hx Seizures: No Hx Dizziness: Yes Hx Syncope: Yes Review of Systems All Other Systems: negative except mentioned in HPI Physical Exam Vital Signs Date Time Temp Pulse Resp B/P (MAP) Pulse Ox O2 Delivery O2 Flow Rate FiO2 04/26/19 11:50 98.2 70 18 106/56 (73) 96 Room Air Sp02 EP Interpretation: reviewed, normal General Appearance: no apparent distress, alert, GCS 15, non-toxic Head: normocephalic, atraumatic Musculoskeletal: no calf tenderness, decreased range of motion, tender - TTP over the L foot 2nd and 3rd metatarsals Neurologic: alert, oriented x3, responsive, sensory intact Psychiatric: judgement/insight normal, memory normal, mood/affect normal, no suicidal/homicidal ideation Skin: Ecchymosis/Bruising - L foot toes, other - skin tears of L and R forearms Medical Decision Making PA Attestation Dr. Tran is my supervising physician. Patient management was discussed with my supervising physician Diagnostic Impression: Primary Impression: contusion ER Course The patient is an 88-year-old male presenting for left foot pain after a piece of luggage fell onto it. Ddx considered include but not limited to sprain/strain, fracture, contusion PE: Vitals stable. NAD There is tenderness to palpation and ecchymosis over the left second and third MTP joints. Limited active range of motion. No deformity Bilateral forearms have ecchymosis and skin tears Left foot x-rays show no acute findings Left foot is placed in a walking boot. The patient's forearm wounds are cleaned and bacitracin applied with new dressing. He is MT'ed home with pain medication. RICE instructions given. He has appt with PCP on 04/30/19. ER precautions given Other X-Ray Diagnostic Results Other X-Ray Diagnostic Results : X-Ray ordered: L foot # of Views/Limited Vs Complete: 3 View, Complete Indication: Pain EP Interpretation: Yes PA Xray: Interpretation reviewed, by supervising MD, and agrees with findings. Interpretation: no dislocation, no soft tissue swelling, no fractures Impression: No acute disease Electronically Signed by: Shayne Estrada PA-C Last Vital Signs Date Time Temp Pulse Resp B/P (MAP) Pulse Ox O2 Delivery O2 Flow Rate FiO2 04/26/19 13:29 18 96 Room Air 04/26/19 11:50 98.2 70 106/56 (73) Status: improved Disposition: HOME, SELF-CARE Condition: Improved Referrals: Jak Cobb MD (PCP) Patient Instructions: Foot Contusion Additional Instructions: Patient is provided with the discharge instructions notified to follow up with primary doctor in the next 2-3 days otherwise return to the er with any worsening symptoms. Please note that this report is being documented using wripl technology. This can lead to erroneous entry secondary to incorrect interpretation by the dictating instrument. SHAYNE ESTRDAA Apr 26, 2019 21:07
== END 2019-04-26 13:29 | disposition home or self-care (01) ==
LOC: EMR 12:58
DX: S90.32XA Contusion of left foot, initial encounter (principal); S51.812A Laceration without foreign body of left forearm, initial encounter; S51.811A Laceration without foreign body of right forearm, initial encounter; W20.8XXA Other cause of strike by thrown, projected or falling object, initial encounter; Y92.9 Unspecified place or not applicable; Z79.01 Long term (current) use of anticoagulants; I10 Essential (primary) hypertension; Z95.0 Presence of cardiac pacemaker; Z86.73 Personal history of transient ischemic attack (TIA), and cerebral infarction without residual deficits
CPT/HCPCS: 99283